=== PATIENT | male | born 1950 | race African-American/Black ===

== ENCOUNTER 2017-09-04 21:25 | Observation (INO) | payer OTHER, SELFPAY ==
[~2017-09-04 21:25] MED LIST: Iopamidol 370 76% 100 ML VIAL ONE; Iopamidol 370 76% 50 ML VIAL FS ONE
[2017-09-04 22:09] LABS: #Eosinphils 0.1 thou/uL (0.0-0.7); #Lymphocytes 1.7 thou/uL (1.20-3.40); #Monocytes 0.5 thou/uL (0.11-0.59); #Neutrophils 5.6 thou/uL (1.40-6.50); %Basophils 0.3 % (0.0-1.0); %Eosinophils 1.3 % (0.0-10.0); %Lymphocytes 21.4 % (21.0-51.0); %Monocytes 6.3 % (0.0-10.0); Hematocrit 46.7 % (42.0-52.0); Mean Platelet Volume 8.4 fL (7.4-10.4); Red Blood Cell (RBC) Count 5.44 mill/uL (4.70-6.10); White Blood Cell (WBC) Count 7.9 thou/uL (4.8-10.8)
[2017-09-04 22:32] LABS: ALT (SGPT) 26 U/L (8-55); AST (SGOT) 16 U/L (5-34); Alkaline Phosphatase 95 U/L (40-150); Anion Gap 9 mmol/L (10-20); BUN (Urea Nitrogen) 14 mg/dL (8.4-25.7); Bilirubin, Total 0.4 mg/dL (0.2-1.2); Calc. Creatinine Clearance 0 mL/min (70-130); Calcium 9.2 mg/dL (7.8-10.44); Carbon Dioxide 30 mmol/L (23-31); Chloride 105 mmol/L (98-107); Estimated GFR-MDRD Greater than 90; Globulin 3.3 g/dL (2.4-3.5); Protein, Total 7.3 g/dL (5.8-8.1)
[2017-09-04] MEDS ORDERED: Morphine 4 MG/ML VIAL ONE ×2 (23:25→23:57)
[2017-09-04] MEDS ORDERED: Ondansetron HCl/PF 4 MG/2 ML Vial ONE (23:25)
[2017-09-05] MEDS ORDERED: Metoprolol Tartrate 5 MG/5 ML VIAL ONE (00:15)
[2017-09-05 01:16] LABS: Bilirubin Negative (Negative); Blood, Urine Large (Negative); Glucose, Urine (Dipstick) Negative (Negative); Ketone, Urine Negative (Negative); Nitrite Negative (Negative); Protein, Urine (Dipstick) Negative (Neg-Trace); Urobilinogen 0.2 mg/dL (0.2-1.0)
[2017-09-05 01:18] LABS: Bacteria/HPF None Seen HPF (None Seen); RBC/HPF GREATER THAN 50-TNTC HPF (0-3); Squamous Epithelial 0-3 HPF (0-3); WBC/HPF 0-3 HPF (0-3)
[2017-09-05 01:29] LABS: Hyaline Casts/LPF NONE SEEN LPF (0-3 Hyaline)
[2017-09-05] MEDS ORDERED: Tamsulosin HCl 0.4 MG CAP PO SCH (02:30)
[2017-09-05] MEDS ORDERED: hydrALAZINE 25 MG TAB PO PRN (04:37)
[2017-09-05 06:11] LABS: Troponin I 0.013 ng/mL (< 0.028)
--- NOTE | 2017-09-05 06:53 | CT ---
PRELIMINARY REPORT/[facility]/EMERGENCY AFTER HOURS PROCEDURE: EXAM: CT Abdomen and Pelvis With Intravenous Contrast EXAM DATE/TIME: Exam ordered 09/05/2017 12:25 AM CLINICAL HISTORY: 66 years old, male; Pain and signs and symptoms; Nausea and vomiting; Abdominal pain; Localized; Righ t lower quadrant (rlq); Patient HX: 66m with rlq pain x 2 days, worse today. Patient states "it feels like i have a fist sized knot down there". Patient denies nausea and vomiting. Denies diarrhea or co nstipation. Denies dysuria or retention. Ems noted patient was hypertensive when they arrived. Patien t reports he is not compliant with BP medication. Denies headache, chest pain and shortness of breath . TECHNIQUE: Axial computed tomography images of the abdomen and pelvis with intravenous contrast. Coronal reformatted images were created and reviewed. CONTRAST: 95 mL of isovue 370 administered intravenously. COMPARISON: No relevant prior studies available. FINDINGS: Lower thorax: Cardiomegaly. ABDOMEN: Liver: Unremarkable. No mass. Gallbladder and bile ducts: Unremarkable. No calcified stones. No ductal dilation. Pancreas: Unremarkable. No mass. No ductal dilation. Spleen: Unremarkable. No splenomegaly. Adrenals: Unremarkable. No mass. Kidneys and ureters: 8 mm obstructing stone at the right UPJ, causing mild/moderate obstructive uropathy. Stomach and bowel: Unremarkable. No obstruction. No mucosal thickening. Appendix: Normal appendix. PELVIS: Bladder: Unremarkable. No mass. Reproductive: Prostatomegaly. ABDOMEN and PELVIS: Intraperitoneal space: Unremarkable. No free air. No significant fluid collection. Bones/joints: Scoliosis. No acute fracture. No dislocation. Soft tissues: Unremarkable. Vasculature: Unremarkable. No abdominal aortic aneurysm. Lymph nodes: Unremarkable. No enlarged lymph nodes. IMPRESSION: 8 mm obstructing stone at the right UPJ, causing mild/moderate obstructive uropathy. Thank you for allowing us to participate in the care of your patient. Dictated and Authenticated by: Kelton Rick MD 09/05/2017 12:38 AM Central Time ([place] & [place]) FINAL REPORT CT ABDOMEN AND PELVIS WITH ORAL AND IV CONTRAST: I agree with the preliminary report given by Dr. Kelton Rick of [facility]. POS: OFF
[2017-09-05] MEDS ORDERED: metFORMIN 500 MG TAB PO SCH (08:00)
[2017-09-05] MEDS ORDERED: Aspirin 81 mg Enteric Coated Tablet PO SCH (09:00)
--- NOTE | 2017-09-05 14:25 | PDOC.EVN ---
Event Note - Event Note Event Note: Attending H&P I personally evaluated the patient and discussed the management with Dr. America Saul. I avhe reviewed the written H&P adn it is repeated by me. I agree with the History, Examination, Assessment and Plan documented above with any addition or exceptions noted below. Urology consult pending. Admitted for elevate BP with WOOTEN. He is feeling much better. Possible discharge later today or tomorrow if asymptomatic and BP improved.
[2017-09-05] MEDS ORDERED: HumaLOG 300 UNITS/3 ML VIAL SC PRN (14:37)
[2017-09-05] MEDS ORDERED: Dextrose 5% in Water 1,000 ML IV PRN (14:37)
[2017-09-05] MEDS ORDERED: Dextrose 50% Abboject 50 ML SYRINGE SLOW IVP PRN (14:37)
[2017-09-05] MEDS ORDERED: Enoxaparin Sodium 40 MG/0.4 ML SYRINGE SC SCH (14:45)
[2017-09-05] MEDS ORDERED: Nicotine 14 MG PATCH TD SCH (15:00)
[2017-09-05] MEDS: Tamsulosin HCl 0.4 MG CAP PO SCH ×2 (15:19→16:10)
[2017-09-05 15:20] VITALS: BMI 22.6
[2017-09-05] MEDS: Lisinopril 20 MG TAB PO SCH (16:08)
[2017-09-05] MEDS: Amlodipine 10 MG TAB PO SCH (16:08)
[2017-09-05] MEDS: Morphine 4 MG/ML VIAL SLOW IVP PRN ×2 (16:11→20:12)
--- NOTE | 2017-09-05 16:16 | HP-2 ---
DATE OF ADMISSION: 09/05/2017 at 02:43 CODE STATUS: FULL. PCP: Nurse practitioner in [place]. ATTENDING DOCTOR: Dr. Goldsmith. PGY-1: Dr. America Paniagua. HISTORIAN: Patient. CHIEF COMPLAINT: Right lower quadrant pain. HISTORY OF PRESENT ILLNESS: This is a 66-year-old male who complains of right lower quadrant pain since yesterday morning. The patient states that he woke up with the pain. He states that the pain is sharp, nonradiating, in the right lower quadrant. The patient states he had some associated nausea and vomiting. He denied chest pain or shortness of breath. Patient was urinating without difficulty. He was brought in via EMS and was found to be hypertensive on the way over to the 250 systolic. Patient reports that he also had a headache yesterday afternoon. Patient reports that he knows he has hypertension, but that he has not been taking his medications because he got tired of taking them. In the ER, the patient received morphine 8 mg IV push, Zofran 4 mg IV, metoprolol 10 mg IV push, hydralazine 10 mg IV, Flomax 0.4 mg. PAST MEDICAL HISTORY: Type 2 diabetes, a history of an WA, hyperlipidemia, hypertension, CVA x2, schizophrenia, depression, and a prior suicide attempt. PAST SURGICAL HISTORY: Hernia repair. ALLERGIES: No known drug allergies. MEDICATIONS: Unknown. SOCIAL HISTORY: A [id number] smoking history. Sober for 6 years in terms of alcohol use and denies drug use. REVIEW OF SYSTEMS: General: Denies fevers and chills. Eyes: Denies vision change. Respiratory: Denies cough, congestion. Cardiovascular: Denies chest pain or palpitations. Gastrointestinal: Endorses nausea and vomiting. Denies diarrhea. Endorses abdominal pain, right lower quadrant. Genitourinary: Denies incontinence or dysuria. Skin: Denies rashes or lesions. Musculoskeletal: Denies pain or tenderness. Neurologic: Denies weakness or numbness. Psychiatric: Denies anxiety or depression. PHYSICAL EXAMINATION: VITAL SIGNS: Blood pressure 148/81, pulse of 58, respiratory rate 17, T-max 97.7, pulse ox 99% on 2 liters, current weight 64.4. GENERAL: Alert and oriented x3, in no apparent distress. Appropriately interactive. EYES: Conjunctivae within normal limits. ENT: Nasal and oropharynx within normal limits. NECK: Supple. No lymphadenopathy, no thyromegaly. CARDIOVASCULAR: Bradycardic. No murmur, rub, or gallop. RESPIRATORY: Normal effort, no retractions, clear to auscultation bilaterally. ABDOMEN: Tender in the right lower quadrant. Hypoactive bowel sounds. EXTREMITIES: No clubbing, cyanosis, or edema. MUSCULOSKELETAL: Structure within normal limits. Tone within normal limits. Muscle strength 5/5. NEUROLOGIC: Hyper rigidity in lower extremities. Sensation within normal limits. Cranial nerves II-XII intact. GCS 15. PSYCHIATRIC: Appropriate. LABORATORY DATA: CBC: White count 7.9, hemoglobin 14.8, hematocrit 47.6, platelets 224. Chemistry: Sodium 140, potassium 4.1, chloride 105, bicarbonate 30, BUN 14, creatinine 0.91, glucose 156. AST, ALT, alkaline phosphatase 16, 26, 95. Calcium, total protein, albumin 9.2, 7.3, 4. Total bilirubin 0.4. UA specific gravity 1.011, blood large, negative for protein, leukocyte esterase, nitrites, ketones, glucose, red blood cells greater than 50 , white blood cells 0-3, bacteria none. EKG, sinus bradycardia with T-wave inversions in lateral leads, V5 and V6. Abdominopelvic CT positive for right nephrolithiasis at the ureteropelvic junction. ASSESSMENT AND PLAN: Mr. Hernandez is a 66-year-old man who presents with right lower quadrant pain and found to have systolic blood pressure to 250 admitted for obstructing ureteropelvic junction nephrolithiasis (8 mm) and hypertensive urgency. 1. Ureteropelvic Junction Nephrolithiasis: We admitted the patient and started him on normal saline at 100 mL an hour. Restarted the patient's Flomax. Consulted Urology in the ER. We will follow up on urine culture. 2. Hypertensive urgency, improving. Patient was initially 250 systolic, was provided with metoprolol and hydralazine in the ER. The patient is now in the 140s. We will continue to monitor. We will start the patient on amlodipine 10 mg daily with a goal range of less than 140/80. Will we plan to slowly bring down the patient's blood pressure to prevent ischemic symptoms. 2. Hypertension, uncontrolled. We will start the patient on amlodipine 10 mg daily. 3. Type 2 diabetes. Sliding scale insulin was started, metformin was started, Accu-Cheks a.c. and at bedtime. 4. Hyperlipidemia. We will restart the patient's atorvastatin and consider ordering a lipid panel. 5. Sinus bradycardia and T-wave inversion. We will monitor the patient for chest pain, which he has not complained of throughout this entire hospital admission. We will trend the patient's troponins. DISPOSITION AND LENGTH OF HOSPITAL STAY: 3 days. Symptomatic medications will be provided. History and physical exam as well as management discussed with Dr. Goldsmith. BRANDT
[2017-09-05] MEDS: Sodium Chloride 0.9% 1,000 ML IV SCH (16:28)
[2017-09-05] MEDS ORDERED: Atorvastatin Calcium 20 MG TAB PO SCH (21:00)
[2017-09-06] MEDS: Sodium Chloride 0.9% 1,000 ML IV SCH (03:12)
[2017-09-06 06:23] LABS: #Basophils 0.1 thou/uL (0.0-0.2); #Eosinphils 0.1 thou/uL (0.0-0.7); #Lymphocytes 2.8 thou/uL (1.20-3.40); #Monocytes 0.8 thou/uL (0.11-0.59); #Neutrophils 3.4 thou/uL (1.40-6.50); %Basophils 1.3 % (0.0-1.0); %Eosinophils 1.5 % (0.0-10.0); Hematocrit 43.2 % (42.0-52.0); Mean Platelet Volume 8.3 fL (7.4-10.4); Red Blood Cell (RBC) Count 4.97 mill/uL (4.70-6.10); White Blood Cell (WBC) Count 7.1 thou/uL (4.8-10.8)
[2017-09-06 06:27] LABS: Anion Gap 8 mmol/L (10-20); BUN (Urea Nitrogen) 10 mg/dL (8.4-25.7); Calc. Creatinine Clearance 91 mL/min (70-130); Calcium 8.7 mg/dL (7.8-10.44); Carbon Dioxide 30 mmol/L (23-31); Chloride 106 mmol/L (98-107); Estimated GFR-MDRD Greater than 90
--- NOTE | 2017-09-06 06:34 | CON ---
DATE OF SERVICE: 09/05/2017 REASON FOR CONSULTATION: Consultation was requested for right ureteropelvic junction stone with hydronephrosis and pain. HISTORY OF PRESENT ILLNESS: Patient is a 66-year-old male, who presented to the ER with right-sided renal colic with nausea and vomiting, worsening over the past couple of days. He has never had stones before. ER called me early on before even attempting to get him comfortable (about 145AM), and my instructions were originally to see if he is comfortable/pain controlled and able to tolerate liquids and then could be discharged. The ER called back about 7 hours later and since I was in the OR, I was not able to speak to them for another 3 hours. By this time, they communicated to me that he was in no pain whatsoever and was only there because blood pressure was still up and they were still trying to anticipate him leaving once that was improved. I asked them to communicate to me if there was going to be a change from the plan of letting him go from the ER, because if he were admitted, then I would see him and likely stent him. They did not. I later check to ensure he's been discharged, and I see that he has been admitted to the floor-- presumably just for his blood pressure issues. When I see him, he still has significant right-sided pain and is moaning with some discomfort, but easily distracted and able to communicate appropriately.. He has frequency 2-3 hours, nocturia x2. He has no lower urinary tract symptoms to include hesitancy, weak stream, straining, cloudy, malodorous urine , or burning. He has never seen blood in the urine up until 3 or 4 weeks ago when he saw a slight amount of blood that cleared on its own. It was slightly tea colored as opposed to actually grossly bloody. He has no leakage of urine. No prior infections and no history of stones. PAST MEDICAL HISTORY: 2 CVAs, the last one was 3 years ago. CAD/NE 4 years ago. Upon further discussion of that, he relays he had cardiac catheterization at that time, and no angioplasty nor stents were required. He does state that he has been on prior anticoagulation therapy, but he is not to be on it currently and has not been taking anything--neither prescription nor over-the- counter ASA from an anticoagulation standpoint. PAST SURGICAL HISTORY: right inguinal hernia. MEDICATIONS: None daily, nothing [id number]. ALLERGIES: None. SOCIAL HISTORY: A 25-uzpp-rcki history, he still smokes. He has prior alcohol abuse, none since 2010. No IV drug abuse. REVIEW OF SYSTEMS: colonoscopy in 2013, which was normal. He has had normal bowel movements, including 1 yesterday. He has no shortness of breath, no chest pain, no cough, no numbness, tingling. He has nausea and emesis x1, but not since he has been into the hospital ER. He has been screened routinely for prostate cancer with a PSA and digital rectal exam--reports those have been normal. FAMILY HISTORY: Father at a young age when he was a child, and his mother lived into her 80s and from old age. She did not have cancer. PHYSICAL EXAMINATION: GENERAL: The patient was moaning with some pain, but easily distracted and able to appear more comfortable and alert and oriented. VITAL SIGNS: Temperature 97.4, heart rate 73, blood pressure 183/84, saturating 96% with respiratory rate of 16. HEENT: He has no diaphoresis or pallor. NECK: He has no obvious JVD. CARDIOVASCULAR: Regular rate and rhythm. No murmurs, gallops, rubs. LUNGS: Clear to auscultation bilaterally. ABDOMEN: Softly distended with right abdominal discomfort as well as right CVA tenderness, but none noted on the left. There was no rebound tenderness or peritoneal signs. His testes were descended bilaterally without masses. GENITOURINARY: His phallus was uncircumcised without lesions and easily retracted for inspection. Meatus was without stenosis. Digital rectal exam revealed an enlarged prostate that was smooth, soft, and without nodules or sidewall fixation. EXTREMITIES: He had no lower extremity edema. LABORATORY DATA: Laboratory values reveal a normal CBC, a creatinine of 0.91, and a urinalysis of 0-3 wbc's, too numerous to count rbc's, no bacteria, 0-[address] scan was reviewed personally and revealed 6 x 9 mm collection of 1 gallstone, it is difficult to tell rom the CT. Right ureteropelvic junction stone with hydronephrosis. There are no other stones. The stone was noted on the advance scout film. The bladder was quite full and he had no other masses of concern, and an enlarged prostate. ASSESSMENT AND PLAN: 66-year-old male with an obstructing right ureteropelvic junction stone as well as significant hypertension that may be chronic with an exacerbation from his recent episode of hydronephrosis and pain. We reviewed placing a stent during this hospital stay and following up as an outpatient for definitive stone therapy to include extracorporal shock wave lithotripsy. Risks and benefits of stent placement were reviewed and we can anticipate doing this tomorrow. All questions were answered. He can eat today and is n.p.o. after midnight. BRANDT
[2017-09-06] MEDS ORDERED: Nicotine 14 MG PATCH TD PRN (08:19)
[2017-09-06] MEDS ORDERED: Potassium Chloride 20 MEQ TAB PO SCH (08:30)
[2017-09-06] MEDS: Amlodipine 10 MG TAB PO SCH (08:48)
[2017-09-06] MEDS: Morphine 4 MG/ML VIAL SLOW IVP PRN (08:48)
[2017-09-06] MEDS: Tamsulosin HCl 0.4 MG CAP PO SCH (08:48)
[2017-09-06] MEDS: Lisinopril 20 MG TAB PO SCH (08:48)
[2017-09-06] MEDS ORDERED: Enoxaparin Sodium 40 MG/0.4 ML SYRINGE SC SCH (09:00)
--- NOTE | 2017-09-06 10:27 | PDOC.FM ---
- Subjective Subjective: CC: flank pain HPI: Patient sleeping at time of exam. No concerns other than providing ride home for him. Explained plan for today. - Objective MAR Reviewed: Yes Vital Signs & Weight: Vital Signs (12 hours) Temp Pulse Resp BP Pulse Ox 09/06/17 08:00 98.1 F 69 16 09/06/17 07:56 98.1 F 69 16 168/78 H 92 L 09/06/17 03:15 97.8 F 80 16 128/68 94 L 09/05/17 23:18 98.3 F 68 18 153/74 H 93 L Weight Weight 67.33 kg I&O: 09/05/17 09/06/17 09/07/17 06:59 06:59 06:59 Intake Total 1590 Output Total 1300 Balance 290 Result Diagrams: 09/06/17 05:54 09/06/17 05:54 EKG Reviewed by me: Yes (SR rate 80s ) <Alexander Saul W - Last Filed: 09/06/17 10:25> - Objective Vital Signs & Weight: Vital Signs (12 hours) Temp Pulse Resp BP BP Pulse Ox 09/06/17 14:51 133/70 09/06/17 14:31 85 09/06/17 14:28 97.7 F 85 20 189/96 H 96 09/06/17 08:00 98.1 F 69 16 09/06/17 07:56 98.1 F 69 16 168/78 H 92 L Weight Weight 67.33 kg I&O: 09/05/17 09/06/17 09/07/17 06:59 06:59 06:59 Intake Total 1590 Output Total 1300 400 Balance 290 -400 Result Diagrams: 09/06/17 05:54 09/06/17 05:54 <Bruce Goldsmith - Last Filed: 09/06/17 17:18> Phys Exam - Physical Examination Constitutional: NAD HEENT: moist MMs, sclera anicteric Respiratory: no wheezing, clear to auscultation bilateral Cardiovascular: RRR, no significant murmur Gastrointestinal: soft, no distention R. CVA tenderness. Musculoskeletal: no edema Neurological: non-focal, moves all 4 limbs Psychiatric: normal affect, A&O x 3 <Alexander Saul W - Last Filed: 12/06/17 10:25> Dx/Plan (1) Right nephrolithiasis Code(s): N20.0 - CALCULUS OF KIDNEY Status: Acute Plan: Urology consulted. Appreciate recs. Plan for stent placement today and likely discharge after. (2) Sinus bradycardia Code(s): R00.1 - BRADYCARDIA, UNSPECIFIED Status: Acute Plan: No episodes since admission. - d/c telemetry (3) Hypertension Code(s): I10 - ESSENTIAL (PRIMARY) HYPERTENSION Status: Acute QualifierTitle: Hypertension type: essential hypertension Qualified Code( s): I10 - Essential (primary) hypertension Plan: Restarted home amlodipine, HCTZ and Lisinopil - outpatient follow up. (4) DM2 (diabetes mellitus, type 2) Status: Acute QualifierTitle: Diabetes mellitus complication status: without complication Diabetes mellitus oysterman insulin use: without fpc use Qualified Code(s): E11.9 - Type 2 diabetes mellitus without complications Plan: SSI not used during stay. Restart home metformin at time of d/c. (5) Uninsured Code(s): Z59.8 - OTHER PROBLEMS RELATED TO HOUSING AND ECONOMIC CIRCUMSTANCES Status: Acute Plan: Case management arranging ride. <Alexander Saul W - Last Filed: 09/06/17 10:25> Attending Addendum - Attending Addendum I personally evaluated the patient and discussed the management with Dr. Saul. I agree with the History, Examination, Assessment and Plan documented above with any addition or exceptions noted below. Stable for discharge. <Bruce Goldsmith - Last Filed: 09/06/17 17:18>
[2017-09-06] MEDS ORDERED: traMADol HCl 50 MG TAB PO PRN (10:29)
[2017-09-06] MEDS ORDERED: Iothalamate Meglumine 60% 50 ML VIAL FS ONE ×2 (10:58)
[2017-09-06] MEDS ORDERED: Fentanyl 100 MCG/2 ML VIAL ONE (11:01)
[2017-09-06] MEDS ORDERED: Promethazine HCl 25 MG/ML VIAL ONE (11:01)
[2017-09-06] MEDS ORDERED: Iopamidol 15 ML ONE (11:03)
[2017-09-06] MEDS ORDERED: CEFAZOLIN 1 GM, Syringe 2.5 ML in Sterile Water 7.5 ML SLOW IVP SCH (11:30)
[2017-09-06] MEDS ORDERED: CEFAZOLIN 1 GM in Sodium Chloride 0.9% 100 ML IVPB SCH (11:30)
[2017-09-06 13:24] LABS: Bilirubin Negative (Negative); Blood, Urine Large (Negative); Glucose, Urine (Dipstick) Negative (Negative); Ketone, Urine Negative (Negative); Nitrite Negative (Negative); Protein, Urine (Dipstick) Negative (Neg-Trace); Urobilinogen 0.2 mg/dL (0.2-1.0)
[2017-09-06] MEDS ORDERED: Labetalol HCl 100 MG/20 ML VIAL ONE ×2 (13:24→15:49)
[2017-09-06 13:31] LABS: Bacteria/HPF None Seen HPF (None Seen); Hyaline Casts/LPF 7-10 HYALINE CAST LPF (0-3 Hyaline); RBC/HPF GREATER THAN 50-TNTC HPF (0-3); Squamous Epithelial 0-3 HPF (0-3)
[2017-09-06] MEDS ORDERED: Morphine Sulfate 2 MG/ML SYRINGE SLOW IVP PRN (13:39)
[2017-09-06] MEDS ORDERED: Meperidine HCl/PF 25 MG/ML VIAL SLOW IVP PRN (13:39)
[2017-09-06] MEDS ORDERED: Promethazine HCl 25 MG/ML VIAL SLOW IVP PRN (13:39)
[2017-09-06] MEDS ORDERED: Ondansetron HCl/PF 4 MG/2 ML Vial IVP PRN (13:39)
[2017-09-06 14:29] VITALS: TEMP 97.7
--- NOTE | 2017-09-06 14:47 | OP ---
DATE OF PROCEDURE: 09/06/2017 PREOPERATIVE DIAGNOSIS: Right ureteropelvic junction stone. POSTOPERATIVE DIAGNOSIS: Right ureteropelvic junction stone. PROCEDURE: Cystoscopy, right retrograde pyelogram, insertion of right ureteral stent 6 x 26. SURGEON: Joy Adkins M.D. ANESTHESIA: General with mask airway. FINDINGS: Adequate placement of a 6 x 26 double-J stent with good efflux noted in the bladder via the stent, hydronephrosis with hydronephrotic drip. DRAIN: Drain was 6 x 26. SPECIMEN: Specimen urine from the right renal pelvis for micro and culture. ESTIMATED BLOOD LOSS: No blood loss. COMPLICATIONS: No complications. The patient is a 66-year-old male who was admitted with both blood pressure issues and an obstructing right stone and was taken to the operating room for a stent. The patient was brought to the room by Anesthesia, placed on the table in supine position. After receiving general anesthetic, flexed legs in lithotomy position. His perineum was prepped and draped in sterile fashion. Using a 21 Danish scope and 30 degrees lens, the bladder inspected. There was a tight bladder neck, but no significant hypertrophy of the prostate. The ureteral orifices were identified in normal position. There were no lesions noted throughout the bladder. The right orifice was attempted to be intubated with a catheter, but required a wire to aid in this and then a retrograde pyelogram was performed given the positioning of the table and the C-arm it was difficult to actually see the stone itself, but ultimately hydronephrosis was noted. Hydronephrotic drip was seen and specimen was taken for approximately 20 mL of concentrated urine and sent for specimen and a 6 x 26 was chosen with good coil visualized in the renal pelvis via fluoroscopy and a coil visualized in the bladder via cystoscopy with effuse noted. Scope was broken apart, bladder drained and then removed in its entirety. The patient tolerated procedure well and was then awakened and transferred to the PACU in stable condition. BRANDT
[2017-09-06 14:52] VITALS: BP 133/70
[2017-09-06] MEDS ORDERED: ePHEDrine/0.9% NaCl/PF SYRINGE 50 mg/10 ml ONE (15:49)
[2017-09-06] MEDS ORDERED: PHENYLEPHRINE-NS 100 MCG/ML 10 ML SYRINGE ONE (15:49)
[2017-09-06] MEDS ORDERED: Propofol 200 MG/20 ML VIAL ONE (15:49)
[2017-09-06] MEDS ORDERED: Calcium Chloride 1 GM/10 ML Abboject SYRINGE ONE (15:49)
[2017-09-06] MEDS ORDERED: Lidocaine 1% PF 5 ML VIAL ONE (15:49)
[2017-09-06] MEDS ORDERED: Ondansetron HCl/PF 4 MG/2 ML Vial ONE (15:49)
[2017-09-06] MEDS ORDERED: Atorvastatin Calcium 10 MG TAB PO SCH (21:00)
[2017-09-06] MEDS ORDERED: Pravastatin Sodium 40 MG TAB PO SCH (21:00)
--- NOTE | 2017-09-07 00:41 | DIS-2 ---
DATE OF ADMISSION: 09/05/2017 DATE OF DISCHARGE: 09/06/2017 ADMITTING ATTENDING: Bruce Goldsmith M.D. DISCHARGE ATTENDING: Bruce Goldsmith M.D. ADMITTING RESIDENT: America Paniagua M.D. DISCHARGE RESIDENT: Alexander Saul M.D. CONSULTATIONS: Dr. Joy Adkins - Urology. PROCEDURES: 1. Cystoscopy with right retrograde pyelogram and insertion of right ureteral stent 6 x 26. 2. Imaging: CT of the abdomen and pelvis stone protocol showed 8 mm obstructing joint at the right UPJ causing mild to moderate obstructive uropathy. PERTINENT LABORATORY FINDINGS: Potassium on day of discharge 3.2, replaced prior to discharge. PRIMARY DIAGNOSES: 1. Obstructing right ureteropelvic junction stone with mild to moderate hydronephrosis. 2. Hypertensive urgency secondary to medication noncompliance. SECONDARY DIAGNOSES: 1. Hypertension. 2. Hyperlipidemia. 3. Diabetes mellitus type 2. 4. Uninsured. DISCHARGE MEDICATIONS: 1. Lisinopril 20 mg daily. 2. Flomax 0.4 mg daily. 3. Tramadol 50 mg q.4 hours p.r.n., dispensed 30 tablets. 4. Hydrochlorothiazide 12.5 mg daily. 5. Amlodipine 10 mg daily. 6. Pravastatin 40 mg at bedtime. DISCONTINUED MEDICATIONS: Spironolactone 25 mg daily. HISTORY OF PRESENT ILLNESS AND HOSPITAL COURSE: Mr. Hernandez is a pleasant 66-year-old -[place] male who presented as a transfer from an outside facility with a 2-day history of right lower quadra nt pain that had progressively worsened throughout the day. He reported associated nausea and vomiti ng. Denied chest pain or shortness of breath. Denied other urinary symptoms. He was found to be se verely hypertensive en route with systolic blood pressures over 250 mmHg. He stated he had not been on any of his antihypertensive medications for approximately 6 months because he "was started of taki ng his medicines." Dr. Adkins was consulted in the ER and initially planned to start the patient on Flomax and discharge him home. However, when the patient's pain was unable to be controlled and his blood pressure remained significantly elevated, decision was made to admit the patient for observatio n. He was restarted on his home medications and given IV morphine for pain control. Dr. Adkins reev aluated the patient and planned for stent placement. This was achieved on 09/06/2017. Patient nu ated the procedure well. Vital signs at the time of discharge were within normal range. Blood press ure was elevated, but patient was otherwise asymptomatic. DISPOSITION: He was discharged in stable condition. However, Mr. Hernandez continues to be noncompliant with his antihypertensive regimen. He is at a markedly increased risk of acute cardiovascular disea se. DISCHARGE INSTRUCTIONS: 1. Location: Home. 2. Diet: Heart healthy, consistent carbohydrates. 3. Activity: As tolerated. 4. Followup: He is to follow up with his primary care physician within 3 days of discharge for furt her management of his blood pressure. He is to contact Dr. Adkins in her office to set up followup a ppointment. Less than 30 minutes spent on discharge.
[2017-09-07] MEDS ORDERED: Hydrochlorothiazide 25 MG TAB PO SCH (09:00)
== END 2017-09-06 15:37 | disposition home or self-care (01) ==
LOC: ERS 21:25 → ERHOLD 09-05 02:29 → 2SW 09-05 12:40
PROVIDERS: ADMIT Family Medicine; ATTEND Family Medicine
PROC: 0T768DZ Dilation of Right Ureter with Intraluminal Device, Via Natural or Artificial Opening Endoscopic (ICD-10-PCS; principal; 2017-09-06)
DX: N13.2 Hydronephrosis with renal and ureteral calculous obstruction (principal); I25.10 Atherosclerotic heart disease of native coronary artery without angina pectoris; I16.0 Hypertensive urgency; I10 Essential (primary) hypertension; E78.5 Hyperlipidemia, unspecified; E11.9 Type 2 diabetes mellitus without complications; F20.9 Schizophrenia, unspecified; F32.9 Major depressive disorder, single episode, unspecified; F17.210 Nicotine dependence, cigarettes, uncomplicated; Z79.899 Other long term (current) drug therapy; Z91.14 Patient's other noncompliance with medication regimen; Z98.890 Other specified postprocedural states; Z86.73 Personal history of transient ischemic attack (TIA), and cerebral infarction without residual deficits
CPT/HCPCS: 36415; 36416; 74177; 76000; 80048; 80053; 81001; 81003; 81015; 82553; 84484; 85025; 87086; 93005; 94760; 96361; 96372; 96374; 96375; 96376; A4216; C1758; C1769; G0378; J0690; J1650; J2001; J2270; J2405; J2550; J2704; J3010; Q9961

== ENCOUNTER 2017-10-16 21:20 | Observation (INO) | payer MEDICARE ==
[2017-10-16 23:04] LABS: CKMB 0.5 ng/mL (0-6.6); Troponin I 0.011 ng/mL (< 0.028)
[2017-10-17] MEDS ORDERED: Acetaminophen 325 MG TAB PO PRN ×2 (01:15→07:10)
[2017-10-17] MEDS ORDERED: Ondansetron ODT 4 MG TAB SL PRN (01:15)
[2017-10-17] MEDS ORDERED: Ondansetron HCl/PF 4 MG/2 ML Vial IVP PRN ×2 (01:15→07:10)
[2017-10-17 01:54] LABS: Troponin I 0.015 ng/mL (< 0.028)
[2017-10-17 02:36] VITALS: BMI 20.6
[2017-10-17] MEDS ORDERED: Senokot 8.6 MG TAB PO PRN (07:10)
[2017-10-17] MEDS ORDERED: Artificial Tears 18 DROP/0.9 ML EA EYE PRN (07:10)
[2017-10-17] MEDS ORDERED: Mag-Al 1200 mg/1200 mg/30 ML UDCUP PO PRN (07:10)
[2017-10-17] MEDS ORDERED: Loperamide HCl 2 MG CAP PO PRN (07:10)
[2017-10-17] MEDS ORDERED: hydrALAZINE 20 MG/ML VIAL SLOW IVP PRN (07:10)
[2017-10-17] MEDS ORDERED: Milk Of Magnesia 30 ML UDCUP PO PRN (07:10)
[2017-10-17] MEDS ORDERED: HYDROcodone/Acetaminophen 5/325 mg Tablet PO PRN (07:10)
[2017-10-17] MEDS ORDERED: Loratadine 10 MG TAB PO PRN (07:10)
[2017-10-17] MEDS ORDERED: Chloraseptic Spray 180 ml Bottle PO PRN (07:10)
[2017-10-17] MEDS ORDERED: Sodium Chloride 0.65% Nasal 44 ML BOT EA NARE PRN (07:10)
[2017-10-17] MEDS ORDERED: Dextrose 50% Abboject 50 ML SYRINGE SLOW IVP PRN (07:10)
[2017-10-17] MEDS ORDERED: HumaLOG 300 UNITS/3 ML VIAL SC PRN ×2 (07:10)
[2017-10-17] MEDS ORDERED: Zolpidem Tartrate 5 MG TAB PO PRN (07:10)
[2017-10-17] MEDS ORDERED: Dextrose 5% in Water 1,000 ML IV PRN (07:10)
[2017-10-17] MEDS ORDERED: Eucerin (Mineral Oil/Petrolatum,White) 30 gm Jar TOP PRN (07:10)
[2017-10-17] MEDS ORDERED: Diabetic Tussin 200 MG/10 ML UDCUP PO PRN (07:10)
[2017-10-17] MEDS ORDERED: traMADol HCl 50 MG TAB PO PRN (07:10)
[2017-10-17] MEDS ORDERED: Ondansetron ODT 4 MG TAB PO PRN (07:10)
[2017-10-17] MEDS: Oseltamivir 75 MG CAP PO SCH (07:53)
[2017-10-17] MEDS: Famotidine 20 MG TAB PO SCH ×2 (07:54→20:11)
[2017-10-17] MEDS: Tamsulosin HCl 0.4 MG CAP PO SCH (07:54)
[2017-10-17] MEDS ORDERED: cefTRIAXone\\ROCEPHIN 2 GM in Sodium Chloride 0.9% 100 ML IVPB SCH (08:00)
[2017-10-17] MEDS: CEFTRIAXONE 2GM/50 ML BAG 2 GM in Premix Bag 1 BAG IVPB SCH (08:48)
[2017-10-17] MEDS ORDERED: Amlodipine 10 MG TAB PO SCH (09:00)
[2017-10-17] MEDS ORDERED: Non-Formulary Item 1 EACH (Insulin Glargine,Hum.Rec.Anlog [Lantus] 15 UNITS) SQ SCH (09:00)
[2017-10-17] MEDS ORDERED: Lisinopril 20 MG TAB PO SCH (09:00)
[2017-10-17] MEDS ORDERED: Aspirin 325 MG TAB PO SCH (09:00)
[2017-10-17] MEDS ORDERED: Hydrochlorothiazide 25 MG TAB PO SCH (09:00)
[2017-10-17] MEDS: Insulin Detemir 100 UNITS/ML 15 UNITS in Pre-Filled Syringe 1 EACH SC SCH ×2 (10:03→20:55)
--- NOTE | 2017-10-17 11:49 | HP ---
PRIMARY CARE PHYSICIAN: Kenyatta Acuna M.D. REASON FOR ADMISSION: Transfer from [place] for syncope, hypotension, and abdominal pain. HISTORY OF PRESENT ILLNESS: A 67-year-old -[place] male who was initially evaluated at [facility]. He went there because he was having right lower quadrant abdominal pain. As per report, patient had syncopal episode, but currently patient denies any syncope. As per report, patient had low blood pressure at [place] [facility], but currently his blood pressure is no rmal. Earlier today, patient had nonsustained ventricular tachycardia 4 beats, but patient was compl etely asymptomatic. His main complaint was abdominal pain on the right side in the lower part. He d enies any CVA tenderness. He denies any hematuria, dysuria or increased frequency. He denies any fe rohan or chills. He denies any nausea, vomiting, headache, focal motor or sensory symptoms. As per [facility] Emergency Room record, patient is from [facility], but patient reports that he lives at home. He was recently admitted in our hospital on 09/05/2017. At that time, patient had Urology procedure and stent was placed by Dr. Adkins. Today, patient had CT abdomen and pelvis at [facility] Room which showed right ureteral stent in place with moderate right hydronephro sis and mild perinephric stranding on the right side, nonobstructive right renal calculus. ALLERGIES: No known drug allergies. CURRENT HOME MEDICATIONS: Coreg 6.25 mg twice daily, Paxil 20 mg p.o. daily, Novolin 70/30 as per sl iding scale, Proventil inhaler nebulization 3 times daily, Imodium 2 mg 3 times daily p.r.n., Tylenol 650 mg q.6 hourly p.r.n., Lantus 30 units subcutaneous daily, hydrochlorothiazide 12.5 mg p.o. daily , lisinopril 20 mg p.o. daily, Norvasc 10 mg p.o. daily, Flomax 0.4 mg p.o. daily, Lipitor 40 mg p.o. at bedtime, Tamiflu 75 mg p.o. daily, tramadol 50 mg q.4 hourly p.r.n., and Plavix 75 mg p.o. daily. REVIEW OF SYSTEMS: The following complete review of systems was negative, unless otherwise mentioned in the HPI or below: Constitutional: Weight loss or gain, ability to conduct usual activities. Skin: Rash, itching. Eyes: Double vision, pain. ENT/Mouth: Nose bleeding, neck stiffness, pain, tenderness. Cardiovascular: Palpitations, dyspnea on exertion, orthopnea. Respiratory: Shortness of breath, wheezing, cough, hemoptysis, fever or night sweats. Gastrointestinal: Poor appetite, abdominal pain, heartburn, nausea, vomiting, constipation, or diarr hea. Genitourinary: Urgency, frequency, dysuria, nocturia. Musculoskeletal: Pain, swelling. Neurologic/Psychiatric: Anxiety, depression. Allergy/Immunologic: Skin rash, bleeding tendency. Please see my HPI for pertinent positive and negative. All other review of system reviewed and negat courtney except as mentioned in the HPI. Reliability of review of system is also uncertain because of his cognitive deficit. PAST MEDICAL HISTORY: Coronary artery disease, hypertension, dyslipidemia, benign enlargement of pro state, nephrolithiasis, history of CVA, carotid artery stenosis. PAST SURGICAL HISTORY: Hernia repair, cystoscopy, and right-sided ureteral stent placement. PAST PSYCHIATRIC HISTORY: Anxiety, depression, schizophrenia, history of suicidal attempt in past. SOCIAL HISTORY: Patient lives at [facility]. He smokes about half pack per day. He d enies any alcohol or other illicit drug abuse. FAMILY HISTORY: No strong family history of premature coronary artery disease, stroke or cancer. EMERGENCY ROOM COURSE: Reviewed. Patient is given aspirin 324 mg. PHYSICAL EXAMINATION: VITAL SIGNS: On arrival, blood pressure 141/75, pulse 78, respiratory rate 21, temperature 98.2, sat uration 97% on room air, weight 77 kilograms. GENERAL: Patient is currently alert, awake, follows commands. No obvious acute distress. HEAD: Normocephalic, atraumatic. EYES: Pupils round, reactive to light. Extraocular muscle intact. ENT: Oropharynx within normal limits. Moist mucous membranes. No oral lesions. No pharyngeal eryt jhon, no exudate. NECK: Supple, no JVD, no thyromegaly, no carotid bruit, no jugular venous distention. LUNGS: Clear to auscultation without any rhonchi or rales. CARDIAC: S1, S2 regular. No murmur, no gallop, no rub. ABDOMEN: Patient does report right-sided flank tenderness. No suprapubic tenderness. No CVA tender ness, no peritoneal signs, no guarding, no rigidity, no rebound, no organomegaly, no distention. [place] el sounds present. BACK: On examination, no CVA tenderness. EXTREMITIES: Upper extremity passive movements of all joints are normal. Lower extremities: No niko ma. Good peripheral pulsation. SKIN: No skin rash. HEMATOLOGICAL SYSTEM: No lymphadenopathy. NEUROLOGIC: Nonfocal examination. He moves all 4 limbs. Nonfocal neurological examination. IMAGING DATA AND SIGNIFICANT LABORATORY DATA: 1. EKG showing normal sinus rhythm, nonspecific ST-T changes, left atrial enlargement. 2. CT abdomen and pelvis showing right ureteral stent in place, moderate right hydronephrosis and mi ld right perinephric fat stranding, nonobstructive right renal calculi. 3. CT brain based on my review, no acute intracranial process. 4. Chest x-ray based on my review, no acute cardiopulmonary process. 5. CBC: WBC 6.8, hemoglobin 13.1, platelets 211, INR 1.0, D-dimer 0.37. 6. BMP: Sodium 142, potassium 4.0, chloride 103, carbon dioxide 28, anion gap 15, BUN 18, creatinin e 1.06, glucose 211, calcium 8.8, lactic acid 1.1. 7. LFT: AST 12, ALT 21, alkaline phosphatase 85, albumin 3.7, lipase 5. 8. Cardiac enzymes negative x2. BNP less than 10, CK 42. 9. Urinalysis showing blood large, ketone trace, leukocyte esterase trace, RBC greater than 50, WBC 4-6, bacteria 2+. ASSESSMENT AND PLAN/IMPRESSION: 1. Right hydronephrosis with right perinephric fat stranding concerning for acute pyelonephritis. T his patient does not have any fever, does not have any leukocytosis. He already has nonobstructive n ephrolithiasis and he had recently stent placed by Dr. Adkins. At this point, his urinalysis is conc erning for infection. We will start empiric Rocephin 1 gram q.24 hours. We will consult Urology for their opinion. We will follow up on urine culture result. Upon discharge, we will consider giving him empiric antibiotic therapy. We will continue Flomax 0.4 mg p.o. daily. Further decisions will d efer to Urology. 2. Syncope per history, patient denies any syncopal history currently to me. Recheck orthostatic vi tals and orthostatic vitals are normal. We will continue with IV fluid today and we will monitor vit als. 3. Hypotension per report at senior living. Currently hypotension, resolved. We will continue IV fl uids while in hospital. 4. Diabetes type 2. We will continue insulin as per sliding scale protocol and we will also resume Lantus 15 units subcu daily. Diabetic diet will be given. 5. Hypertension. At this point, because of relative very low blood pressure and history of hyperten lashay, I will hold antihypertensive medication. We will monitor vitals and then decide antihypertensi ve medication upon discharge. It is possible that he may need a lower dose of antihypertensive medic ation. 6. Dyslipidemia. Continue Lipitor 40 mg p.o. at bedtime. 7. Abdominal pain, right flank, probably related with his stent versus pyelonephritis. Urology cons ulted. 8. Deep venous thrombosis prophylaxis not needed because we are expecting discharge in 24 hours. 9. Gastrointestinal prophylaxis, Pepcid 20 mg p.o. b.i.d. 10. Code status: The patient is FULL CODE. The patient does not have any surrogate decision maker at this point. Disposition plan based on clinical course likely within 24 hours. Plan of care discussed with the boris thomas in detail.
[2017-10-17] MEDS: Sodium Chloride 0.9% 1,000 ML IV SCH (12:48)
--- NOTE | 2017-10-17 18:57 | CON ---
DATE OF CONSULT: HISTORY OF PRESENT ILLNESS: Presented today with apparent a syncopal episode. Patient does not have recollection of losing consciousness. He had been seen previously in 2012 with atrial flutter. He underwent a cardiac catheterization in 2008 and he was found to have mild coronary artery disease. The patient was advised to discontinue smoking. He has subsequently suffered two cerebrovascular accidents. The patient has continued to smoke. He was in the [facility] when apparently he was smoking and the nurse saw that he apparently suddenly lost consciousness. The patient denies having any previous history of syncope. The patient denies having any chest discomfort or palpitations. He denies having any dyspnea, PND or orthopnea. PAST MEDICAL HISTORY: 1. Cerebrovascular accident. 2. Atrial flutter. 3 Coronary artery disease. 4. Hypertension. 5. Dyslipidemia. 6. Hydronephrosis. 7. History of schizophrenia. PAST SURGICAL HISTORY: Urologic surgery and hernia surgery. SOCIAL HISTORY: The patient continues to abuse tobacco. MEDICATIONS: See nursing list ALLERGIES: No known drug allergies. FAMILY HISTORY: No strong family history of coronary artery disease. REVIEW OF SYSTEMS: Ten-point system otherwise unremarkable. PHYSICAL EXAMINATION: GENERAL: This is a confused gentleman. VITAL SIGNS: Blood pressure 132/63. NECK: Showed no jugular venous distention. LUNGS: Clear to auscultation. HEART: Regular rate and rhythm, normal S1, S2, no murmurs. ABDOMEN: Nondistended. EXTREMITIES: Showed trace edema. SKIN: Warm and dry. VASCULAR: Radial pulses are 2+. LABORATORY: His white blood count was 6.8, hemoglobin 13.1, hematocrit 40.8, platelets 211, 000. Troponin was 0.011 and BNP was less than 10. His EKG reveals him to have normal sinus rhythm with mild voltage criteria for left ventricular hypertrophy. No acute ST-T wave abnormalities. IMPRESSION: 1. Syncope, probably orthostatic: 1. Hypertension. 2. History of coronary artery disease. 3. History of cerebrovascular accident. 4. Diabetes mellitus. 5. Schizophrenia. This gentleman had an apparent syncopal episode. He is markedly orthostatic. EKG is unremarkable. from a cardiac standpoint, I agree with hydration and adjusting his antihypertensive medications. From a cardiac standpoint, he is able to perform four METS of exercise. He can walk several blocks without any difficulty. I expect he is a reasonable risk for proceeding with noncardiac surgery or lithotripsy. We will follow this patient with you throughout his hospitalization. BRANDT
[2017-10-17] MEDS ORDERED: Atorvastatin Calcium 40 MG TAB PO SCH (21:00)
[2017-10-17] MEDS ORDERED: ALPRAZolam 0.25 MG TAB PO PRN (21:29)
--- NOTE | 2017-10-17 23:10 | CON ---
DATE OF CONSULTATION: 10/17/2017 REASON FOR CONSULTATION: I was consulted for concern for pyelonephritis. HISTORY OF PRESENT ILLNESS: The patient is a 67-year-old male, who was admitted acutely in early September both for right-sided pain and ultimately for blood pressure issues and I placed an urgent stent. He was discharged and supposed to follow up as an outpatient for definitive stone management. Not much of anything has occurred since that time despite my office trying to get clearance for him and he returned to the [facility] for syncope and hypertension with abdominal pain. Upon speaking to the patient and reviewing records questionable whether he actually had a syncopal episode, but he was having some right-sided pain. The patient is also a bit confused as to the reason for being admitted to the hospital. PAST MEDICAL HISTORY: Significant for 2 CVAs, the last one in 2013; CAD with an MD in 2012, previously on anticoagulant therapy, but no longer currently. PAST SURGICAL HISTORY: Includes right inguinal hernia. MEDICATIONS: Previously, his medications were none daily. Now since the prior hospitalization, he is supposed to be on Coreg 6.25 mg b.i.d., Paxil 20 mg daily , Proventil nebulizer, hydrochlorothiazide 12.5 mg daily, lisinopril 20 mg daily , Norvasc 10 mg daily, Flomax 0.4 mg daily, Lipitor 40 mg at bedtime, and he is listed as taking Plavix per the H&P of this admission, but the patient denies that he takes a blood thinner. ALLERGIES: None. REVIEW OF SYSTEMS: He has no chest pain nor coughing up anything. He has right -sided abdominal flank pain. He denies any pain when he urinates and he denies that his right-sided pain is any worse with urination. He denies any difficulty in expelling his urine. SOCIAL HISTORY: A 72-[id number] history and still smokes. He has prior alcohol abuse, but none since 2010 and he has no IV drug abuse. Further review of systems other than what has already been mentioned reveals a colonoscopy in 2013 , which was normal. He has not had diarrhea or constipation. He reports normal prostate cancer screening with PSAs and DREs. FAMILY HISTORY: His father at a young age as a child. Mother lived into her 80s and from old age. She did not have cancer. PHYSICAL EXAMINATION: VITAL SIGNS: He has been afebrile. T-max 98.5, current 98.1. Blood pressure 132/63, heart rate 80, satting 97% on room air with respiratory rate of 16. Urine output has not been recorded. GENERAL: He appears comfortable in the bed. He is oriented to person and place. He has no obvious JVD. He has no tachycardia. ABDOMEN: Soft, nondistended. Minimal right mid quadrant tenderness, mild right CVA tenderness, no left CVA tenderness. GENITOURINARY: Testes are descended bilaterally without masses. Phallus was uncircumcised without lesions. EXTREMITIES: There is no significant lower extremity edema. LABORATORY VALUES: Reveal a BUN and creatinine of 18 and 1.06 from 10/16/2017; a CBC with a white count of 6.8, a borderline H&H and a normal platelet again from 10/16/2017. Urine was 4-6 wbc's, greater than 50 rbc's, 2+ bacteria, and 7 -10 squamous cells. I suspect this was a contaminated specimen given his foreskin. ASSESSMENT AND PLAN: We have a 66-year-old male with apparently a difficult social situation regarding followup, who have been attempting to get cardiac clearance for so that he can undergo extracorporal shockwave lithotripsy and get the current right indwelling stent out that was placed in early September. He may or may not actually have pyelonephritis, but I do think he has some stent pain. It is not unreasonable to treat him with antibiotics at this time. I doubt that it is a significant pyelonephritis in the absence of a white count and temperature. I have asked that he get cardiac clearance during this stay so that we can set up extracorporeal shock wave lithotripsy as an outpatient. If he is indeed on Plavix, then this would need to be held and I would be asking for such approval. If he is not, then he just needs to be cleared from a cardiovascular standpoint to undergo general anesthesia. Once he has obtained everything that Cardiology would need from him to clear him, then he may be discharged to home and I will see him as an outpatient to further set up the procedure. BRANDT
[2017-10-18] MEDS: Sodium Chloride 0.9% 1,000 ML IV SCH (04:00)
[2017-10-18 06:11] LABS: ALT (SGPT) 19 U/L (8-55); AST (SGOT) 12 U/L (5-34); Albumin 3.4 g/dL (3.4-4.8); Alkaline Phosphatase 72 U/L (40-150); Anion Gap 11 mmol/L (10-20); BUN (Urea Nitrogen) 21 mg/dL (8.4-25.7); Bilirubin, Total 0.3 mg/dL (0.2-1.2); Calc. Creatinine Clearance 86 mL/min (70-130); Calcium 8.8 mg/dL (7.8-10.44); Carbon Dioxide 28 mmol/L (23-31); Chloride 106 mmol/L (98-107); Estimated GFR-MDRD Greater than 90; Globulin 2.4 g/dL (2.4-3.5); Glucose 111 mg/dL (80-115); Potassium 3.7 mmol/L (3.5-5.1); Protein, Total 5.8 g/dL (5.8-8.1); Sodium 141 mmol/L (136-145)
[2017-10-18 06:24] LABS: Eosinophils 7 % (0-10); Lymphocytes 49 % (21-51); MDiff Complete? YES; Mean Corpuscular HGB CONC 32.9 g/dL (32.0-36.0); Mean Corpuscular Hemoglobin 28.2 pg (27.0-31.0); Mean Corpuscular Volume 85.8 fl (80.0-94.0); Mean Platelet Volume 8.7 fL (7.4-10.4); Monocytes 8 % (0-10); Neutrophil 35 % (42-75); PLT Morphology Comment Appears Adequate; Platelet Count 200 thou/uL (130-400); RBC Distribution Width 13.1 % (11.5-14.5); Red Blood Cell (RBC) Count 4.27 mill/uL (4.70-6.10); White Blood Cell (WBC) Count 5.8 thou/uL (4.8-10.8)
[2017-10-18] MEDS: Oseltamivir 75 MG CAP PO SCH (09:10)
[2017-10-18] MEDS: CEFTRIAXONE 2GM/50 ML BAG 2 GM in Premix Bag 1 BAG IVPB SCH (09:11)
[2017-10-18] MEDS: Famotidine 20 MG TAB PO SCH (09:11)
[2017-10-18] MEDS: Tamsulosin HCl 0.4 MG CAP PO SCH (09:11)
--- NOTE | 2017-10-18 10:55 | PDOC.PN ---
- Subjective Encounter Start Date: 10/18/17 Encounter Start Time: 09:20 -: old records requested/rev Patient seen and examined. No new complaints. No overnight events - Objective Resuscitation Status: Resuscitation Status FULL:Full Resuscitation MAR Reviewed: Yes Vital Signs & Weight: Vital Signs (12 hours) Temp Pulse Resp BP BP BP BP 10/18/17 07:35 97.8 F 71 16 131/72 140/77 133/66 10/18/17 04:00 98.5 F 71 16 106/51 L 10/17/17 23:08 98.3 F 63 16 120/60 Pulse Ox 10/18/17 07:35 99 10/18/17 04:00 98 10/17/17 23:08 95 Weight Weight 138 lb 4.8 oz I&O: 10/17/17 10/18/17 10/19/17 06:59 06:59 06:59 Intake Total 200 1945 Balance 200 1945 Result Diagrams: 10/18/17 04:12 10/18/17 04:12 Additional Labs: Accuchecks 10/18/17 10/17/17 10/17/17 05:44 20:41 17:06 POC Glucose 70 250 H 219 H Phys Exam - Physical Examination Constitutional: NAD HEENT: PERRLA, moist MMs, sclera anicteric Neck: no JVD, supple Respiratory: no wheezing, no rales, no rhonchi Cardiovascular: RRR, no significant murmur, no rub Gastrointestinal: soft, non-tender, no distention, positive bowel sounds Musculoskeletal: no edema, pulses present Neurological: non-focal, normal sensation, moves all 4 limbs Lymphatic: no nodes Psychiatric: normal affect Skin: no rash, normal turgor Dx/Plan (1) Acute pyelonephritis Code(s): N10 - ACUTE PYELONEPHRITIS Status: Acute (2) Hydronephrosis, right Code(s): N13.30 - UNSPECIFIED HYDRONEPHROSIS Status: Acute (3) Hypotension Status: Resolved (4) Syncope due to orthostatic hypotension Code(s): I95.1 - ORTHOSTATIC HYPOTENSION Status: Acute (5) DM2 (diabetes mellitus, type 2) Status: Chronic Qualifiers: (6) Hypertension Code(s): I10 - ESSENTIAL (PRIMARY) HYPERTENSION Status: Chronic Qualifiers: (7) Right nephrolithiasis Code(s): N20.0 - CALCULUS OF KIDNEY Status: Chronic - Plan cont current plan of care, continue antibiotics * cipro on discharge * cardiology cleared for outpt surgery * keep on hold BP meds , if BP rise then start low dose of meds * medication reviewed as below * symptomatic treatment. * see discharge mikey Review of Systems - Review of Systems ENT: negative: Ear Pain, Ear Discharge, Nose Pain, Nose Discharge, Nose Congestion, Mouth Pain, Mouth Swelling, Throat Pain, Throat Swelling, Other Respiratory: negative: Cough, Dry, Shortness of Breath, Hemoptysis, SOB with Excertion, Pleuritic Pain, Sputum, Wheezing Cardiovascular: negative: chest pain, palpitations, orthopnea, paroxysmal nocturnal dyspnea, edema, light headedness, other Gastrointestinal: negative: Nausea, Vomiting, Abdominal Pain, Diarrhea, Constipation, Melena, Hematochezia, Other Genitourinary: negative: Dysuria, Frequency, Incontinence, Hematuria, Retention , Other Musculoskeletal: negative: Neck Pain, Shoulder Pain, Arm Pain, Back Pain, Hand Pain, Leg Pain, Foot Pain, Other Skin: negative: Rash, Lesions, Deandre, Bruising, Other Other: not reliable due to cognitive status - Medications/Allergies Allergies/Adverse Reactions: Allergies Allergy/AdvReac Type Severity Reaction Status Date / Time No Known Allergies Allergy Verified 10/17/17 01:39 Medications: Current Medications Acetaminophen (Tylenol) 650 mg PO Q4H PRN PRN Reason: Headache/Fever or Pain Hydrocodone Bitart/Acetaminophen (Rhodes 5/325) 1 tab PO Q4H PRN PRN Reason: Moderate Pain (4-6) Al Hydroxide/Mg Hydroxide (Maalox) 30 ml PO Q6H PRN PRN Reason: Heartburn or Indigestion Artificial Tears (Tears Naturale) 0 drop EA EYE PRN PRN PRN Reason: Dry Eyes Atorvastatin Calcium (Lipitor) 40 mg PO HS [facility] Last Admin: 10/17/17 20:11 Dose: 40 mg Dextrose/Water (Dextrose 50%) 25 gm SLOW IVP PRN PRN PRN Reason: Hypoglycemia Famotidine (Pepcid) 20 mg PO BID [facility] Last Admin: 10/18/17 09:11 Dose: 20 mg Glucagon (Glucagon) 1 mg IM PRN PRN PRN Reason: Hypoglycemia Guaifenesin (Robitussin Sf) 200 mg PO Q4H PRN PRN Reason: Cough Hydralazine HCl (Apresoline) 10 mg SLOW IVP Q4H PRN PRN Reason: Systolic BP > 180 Dextrose/Water (D5w) 1,000 mls @ 0 mls/hr IV .Q0M PRN; As Directed PRN Reason: Hypoglycemia CEFTRIAXONE 2GM/50 ML BAG 2 gm (/ Device) 50 mls @ 100 mls/hr IVPB 0800 [facility] Last Admin: 10/18/17 09:11 Dose: 50 mls Sodium Chloride (Normal Saline 0.9%) 1,000 mls @ 70 mls/hr IV .[id number] [facility] Last Admin: 10/18/17 04:00 Dose: 1,000 mls Insulin Detemir 15 units/ (Miscellaneous Medication) 0.15 mls @ 0 mls/hr [facility] PRN Reason: As Directed Insulin Human Lispro (Humalog) 0 units SC .MODERATE SLIDING SC PRN PRN Reason: Moderate Correctional Scale Last Admin: 10/17/17 17:21 Dose: 4 unit Insulin Human Lispro (Humalog) 0 units SC .BEDTIME SLIDING SC PRN PRN Reason: Bedtime Correctional Scale Loperamide HCl (Imodium) 2 mg PO PRN PRN PRN Reason: Diarrhea/Loose Stools Loratadine (Claritin) 10 mg PO DAILYPRN PRN PRN Reason: Sinus Symptoms Magnesium Hydroxide (Milk Of Magnesium) 30 ml PO DAILYPRN PRN PRN Reason: Constipation Mineral Oil/White Petrolatum (Eucerin Cream) 0 gm TOP BIDPRN PRN PRN Reason: Dry Skin Ondansetron HCl (Zofran Odt) 4 mg PO Q6H PRN PRN Reason: Nausea/Vomiting Ondansetron HCl (Zofran) 4 mg IVP Q6H PRN PRN Reason: Nausea/Vomiting Oseltamivir Phosphate (Tamiflu) 75 mg PO DAILY [facility] Last Admin: 10/18/17 09:10 Dose: 75 mg Phenol (Chloraseptic [place] 180 Ml Bot) 0 ml PO PRN PRN PRN Reason: Sore Throat Senna (Senokot) 2 tab PO HSPRN PRN PRN Reason: Constipation Sodium Chloride ([place] Nasal [place] 0.65%) 0 ml EA NARE QIDPRN PRN PRN Reason: Nasal Congestion Tamsulosin HCl (Flomax) 0.4 mg PO DAILY [facility] Last Admin: 10/18/17 09:11 Dose: 0.4 mg Tramadol HCl (Ultram) 50 mg PO Q4H PRN PRN Reason: Pain Last Admin: 10/17/17 23:15 Dose: 50 mg Zolpidem Tartrate (Ambien) 5 mg PO HSPRN PRN PRN Reason: Insomnia
[2017-10-18 12:12] VITALS: BP 132/63; TEMP 98
--- NOTE | 2017-10-18 12:15 | DIS ---
PRIMARY CARE PHYSICIAN: Dr. Acuna DATE OF ADMISSION: 10/17/2017 DATE OF DISCHARGE: 10/18/2017 DISCHARGE DISPOSITION: residential. PRIMARY DISCHARGE DIAGNOSES: 1. Syncope due to orthostatic hypotension. 2. Right-sided pyelonephritis. 3. Right hydronephrosis. SECONDARY DISCHARGE DIAGNOSES: Right nephrolithiasis with stent, hypertension, diabetes type 2, eduardo gn enlargement of prostate, dyslipidemia. PRIMARY PROCEDURES/OPERATIONS: None. RADIOLOGICAL INVESTIGATION: CT brain was negative for any acute process. Chest x-ray was normal. C T of the abdomen and pelvis showed right-sided perinephric stranding and right hydronephrosis. SIGNIFICANT LABS: WBC 5.8, hemoglobin 12.0, platelet 200. Sodium 141, potassium 3.7, BUN 21, creati nine 0.76, calcium 8.8. LFTs normal. DISCHARGE MEDICATIONS: Lipitor 40 mg p.o. at bedtime, Cipro 500 mg p.o. b.i.d. for 15 days, NovoLog insulin as per sliding scale, Lantus insulin 15 units subcu daily, Tamiflu 75 mg p.o. daily for proph ylaxis, Flomax 0.4 mg p.o. daily, Tramadol 50 mg q.4 hourly p.r.n. CONTRAINDICATIONS: None. CODE STATUS: FULL CODE. INPATIENT CONSULTANTS: Dr. Parry was consulted for preoperative clearance. Dr. Joy Adkins was consulted for right-sided hydronephrosis and she recommended lithotripsy treatment on outpatient basi s. TEST RESULTS PENDING ON DISCHARGE: None. ALLERGIES: No known drug allergy. DISCHARGE PLAN: Post hospital, the patient will follow up with primary care physician and Dr. Joy Adkins as instructed. HOSPITAL COURSE: A 67-year-old male who was at the long term where he was having an episode of sy ncope which was related with hypotension. He was on a bunch of blood pressure medication that might have contributed to hypotension. He was also complaining of right flank pain and that is why in the emergency room, CT of the abdomen and pelvis showed right-sided hydronephrosis and right-sided pyelon ephritis. His urinalysis was also suspected for UTI. We admitted to telemetry floor. We hydrated with IV fluid. We treated him with Rocephin. On discharge, we changed to p.o. Cipro for another 15 days. During this admission, his blood pressure remained on the lower side and that is why we discon tinued antihypertensive medication, but the patient's antihypertensive medications can be restarted w ith lisinopril 5 mg p.o. daily if blood pressure goes up. Urology was okay with continuing antibioti c therapy. Urology recommended cardiology clearance for lithotripsy procedure on an outpatient basis . Dr. Parry precleared him for surgical procedure. Now at this point, patient is afebrile, hemod ynamically stable. He will continue the above-mentioned medication and Dr. Joy Adkins will make ap pointment on an outpatient basis for lithotripsy. The patient is seen and examined at bedside today. Please see my progress note from today for furthe r details. Paperwork for discharge done. Discharge medication reconciliation done. At this point, we are not giving him antihypertensive medication to prevent orthostatic hypotension, but if blood pressure starts high then antihypertensive medication with monotherapy at low dose can b e started at long term. Overall, the patient is medically stable for discharge today.
[2017-10-18] MEDS ORDERED: Insulin Detemir 100 UNITS/ML 15 UNITS in Pre-Filled Syringe 1 EACH SC SCH (21:00)
== END 2017-10-18 14:22 ==
LOC: ERS 21:20 → 2SW 10-17 01:07
PROVIDERS: ADMIT Family Medicine; ATTEND Family Medicine
DX: I95.1 Orthostatic hypotension (principal); N12 Tubulo-interstitial nephritis, not specified as acute or chronic; N13.30 Unspecified hydronephrosis; N20.0 Calculus of kidney; I10 Essential (primary) hypertension; E11.9 Type 2 diabetes mellitus without complications; N40.0 Benign prostatic hyperplasia without lower urinary tract symptoms; E78.5 Hyperlipidemia, unspecified; I25.10 Atherosclerotic heart disease of native coronary artery without angina pectoris; I65.29 Occlusion and stenosis of unspecified carotid artery; F41.9 Anxiety disorder, unspecified; F32.9 Major depressive disorder, single episode, unspecified; F20.9 Schizophrenia, unspecified; F17.210 Nicotine dependence, cigarettes, uncomplicated; I25.2 Old myocardial infarction; I48.92 Unspecified atrial flutter; Z79.4 Long term (current) use of insulin; Z79.899 Other long term (current) drug therapy; Z96.0 Presence of urogenital implants; Z98.890 Other specified postprocedural states; Z91.5 Personal history of self-harm; Z86.73 Personal history of transient ischemic attack (TIA), and cerebral infarction without residual deficits
CPT/HCPCS: 80053; 82550; 82553; 82962 ×2; 84484 ×2; 85025; 93005; 93306; 96361 ×2; 96365; 96366; 99285; G0378; J0696 ×2; 36415; 36416; J1815; J7050

== ENCOUNTER 2017-10-31 08:50 | Day surgery (SDC) | payer MEDICARE ==
[2017-10-31] MEDS ORDERED: cefTRIAXone\\ROCEPHIN 1 GM, Syringe 0.4 ML in Sterile Water 9.6 ML SLOW IVP SCH (10:00)
--- NOTE | 2017-10-31 11:03 | RAD ---
ABDOMEN ONE VIEW: History: Ureteral stone. Stent. FINDINGS: The visualized bowel gas pattern is nonspecific. Irregular shaped stone over the inferior pole of the right renal shadow is similar in appearance to the prior CT. Double pigtail right ureteral stent is in good radiographic position. There is calcification over the arterial structures. IMPRESSION: 1. Right ureteral stent. Right renal calculus. 2. Atherosclerosis. POS: [facility]
[2017-10-31] MEDS ORDERED: Fentanyl 100 MCG/2 ML VIAL ONE (11:17)
[2017-10-31] MEDS ORDERED: Furosemide 20 MG/2 ML VIAL ONE (11:18)
[2017-10-31] MEDS ORDERED: Ondansetron HCl/PF 4 MG/2 ML Vial ONE ×2 (13:25→15:02)
[2017-10-31] MEDS ORDERED: PHENYLEPHRINE-NS 100 MCG/ML 10 ML SYRINGE ONE (15:02)
[2017-10-31] MEDS ORDERED: PROPOFOL 200 MG/20 ML VIAL ONE (15:02)
[2017-10-31] MEDS ORDERED: Dexamethasone 20 MG/5 ML VIAL ONE (15:02)
[2017-10-31] MEDS ORDERED: Lidocaine 1% PF 5 ML VIAL ONE (15:02)
--- NOTE | 2017-10-31 15:03 | OP ---
DATE OF SERVICE: 10/31/2017 PREOPERATIVE DIAGNOSIS: Right renal stone. POSTOPERATIVE DIAGNOSIS: Right renal stone. PROCEDURE: Extracorporeal shock wave lithotripsy as well as cystoscopy, right stent removal. SURGEON: Dr. Adkins. ANESTHESIA: General with laryngeal mask airway. COMPLICATIONS: No complications. SPECIMENS: No specimens. DRAINS: No drains remaining. ESTIMATED BLOOD LOSS: No blood loss. INDICATIONS: The patient is a 67-year-old male, who was admitted urgently with obstructing stone and had a stent placed previously. I tried to see him in followup. There was some concern with losing him in his communication with appropriate people at his facility. We were finally able to get him cl eared while he was admitted for a separate occasion of abdominal pain, and so we set him up for defin itive therapy. The patient was brought into the room by Anesthesia and laid on table in supine position. After rece iving general anesthetic, lithotripter could identify the stone in multiple planes and then a total o f 2500 shocks at a maximum power of 4-6 at a maximum rate of 80 per minute were delivered. Good frag mentation was noted. During this procedure and still remained supine, he was prepped and a flexible cystoscope was used to traverse the urethra and into the bladder where the stent was grasped and brou ght out through the urethral meatus without difficulty. Patient tolerated the procedure well and was then awakened and transferred back in stable condition.
== END 2017-10-31 16:40 | disposition home or self-care (01) ==
LOC: SDC 08:50
PROVIDERS: ATTEND Urology
PROC: 0TF3XZZ Fragmentation in Right Kidney Pelvis, External Approach (ICD-10-PCS; principal; 2017-10-31)
PROC: 0TP98DZ Removal of Intraluminal Device from Ureter, Via Natural or Artificial Opening Endoscopic (ICD-10-PCS; 2017-10-31)
DX: N20.0 Calculus of kidney (principal); I10 Essential (primary) hypertension; E11.9 Type 2 diabetes mellitus without complications; E78.00 Pure hypercholesterolemia, unspecified; N39.0 Urinary tract infection, site not specified; F31.9 Bipolar disorder, unspecified; F17.210 Nicotine dependence, cigarettes, uncomplicated; Z86.73 Personal history of transient ischemic attack (TIA), and cerebral infarction without residual deficits; Z98.890 Other specified postprocedural states
CPT/HCPCS: 36416; 74018; A4216; J0696; J1100; J1940; J2001; J2405; J2704; J3010

== ENCOUNTER 2017-11-29 09:14 | Outpatient (CLI) | payer MEDICARE ==
--- NOTE | 2017-11-29 11:01 | RAD ---
KUB: Date: 11-29-17 Comparison: 10-31-17 History: Renal stone disease. FINDINGS: The prior exam demonstrated a right double J ureteral stent, which has been removed. There was also a calcification in the right upper quadrant on the prior exam measuring 8 mm, suggesting an intrarenal stone on the right. That calcification is no longer visualized. Stool is seen throughout the colon, partially obscuring bilateral renal shadows. No discrete renal stone is appreciated on this exam. The bowel gas pattern appears nonobstructed. IMPRESSION: Nonobstructed bowel gas pattern. Previously noted right renal stone is no longer visualized and doubl e J ureteral stent on the right has been removed. POS: [facility]
== END 2017-11-29 09:15 | disposition home or self-care (01) ==
LOC: RAD 09:14
PROVIDERS: ATTEND Urology
DX: N20.0 Calculus of kidney (principal); Z96.0 Presence of urogenital implants
CPT/HCPCS: 74018

== ENCOUNTER 2019-07-04 12:50 | Emergency (ER) | payer MEDICARE, MEDICAID ==
[2019-07-04 13:33] LABS: #Basophils 0.1 thou/uL (0.0-0.2); #Eosinphils 0.3 thou/uL (0.0-0.7); #Lymphocytes 2.6 thou/uL (1.20-3.40); #Monocytes 0.6 thou/uL (0.11-0.59); #Neutrophils 3.6 thou/uL (1.40-6.50); %Basophils 1.5 % (0.0-1.0); %Eosinophils 4.7 % (0.0-10.0); %Monocytes 8.7 % (0.0-10.0); %Neutrophils 49.2 % (42.0-75.0); Hemoglobin 15.3 g/dL (14.0-18.0); Mean Corpuscular HGB CONC 31.2 g/dL (32.0-36.0); Mean Corpuscular Hemoglobin 26.2 pg (27.0-31.0); Platelet Count 211 thou/uL (130-400); RBC Distribution Width 14.5 % (11.5-14.5); Red Blood Cell (RBC) Count 5.82 mill/uL (4.70-6.10); White Blood Cell (WBC) Count 7.3 thou/uL (4.8-10.8)
[2019-07-04] MEDS ORDERED: Ketorolac Tromethamine 30 MG/ML VIAL ONE (13:39)
[2019-07-04 13:57] LABS: ALT (SGPT) 18 U/L (8-55); AST (SGOT) 13 U/L (5-34); Albumin 3.9 g/dL (3.4-4.8); Alkaline Phosphatase 96 U/L (40-110); Anion Gap 10 mmol/L (10-20); BUN (Urea Nitrogen) 21 mg/dL (8.4-25.7); Bilirubin, Total 0.4 mg/dL (0.2-1.2); CK (CPK) 66 U/L (30-200); Calc. Creatinine Clearance 0 mL/min (70-130); Calcium 8.7 mg/dL (7.8-10.44); Carbon Dioxide 28 mmol/L (23-31); Chloride 109 mmol/L (98-107); Estimated GFR-MDRD 84; Glucose 151 mg/dL (80-115); Lipase 9 U/L (8-78); Potassium 4.5 mmol/L (3.5-5.1); Protein, Total 6.9 g/dL (5.8-8.1); Sodium 142 mmol/L (136-145)
--- NOTE | 2019-07-04 14:17 | RAD ---
RIGHT SHOULDER 3 VIEWS: Date: 07/04/19 CLINICAL HISTORY: Pain. FINDINGS: No fracture or dislocation. 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 Reference made to 02/17/19 exam, without significant interval change. IMPRESSION: No acute osseous abnormality of right shoulder. POS: [facility]
--- NOTE | 2019-07-04 14:18 | RAD ---
FRONTAL VIEW CHEST: Date: 07/04/19 INDICATION: Pain. FINDINGS: There is enlargement of the cardiac silhouette. This does obscure the left lower lung zone from view. There is hazy, increased density of the left mid to lower chest. Right lung is grossly clear. There is prominence of pulmonary vasculature. IMPRESSION: Added density of left hemithorax with obscuration of left lower lung zone due to enlarged cardiac yosi houette. This may be on the basis of pleural fluid. Consider follow-up with dedicated 2 view chest for further evaluation. POS: [facility]
[2019-07-04] MEDS ORDERED: hydrALAZINE 20 MG/ML VIAL ONE (15:53)
[2019-07-04 16:08] LABS: Troponin I Less than 0.010 ng/mL (< 0.028)
== END 2019-07-04 16:45 ==
LOC: ERS 12:50
DX: M25.511 Pain in right shoulder (principal); I10 Essential (primary) hypertension; I25.10 Atherosclerotic heart disease of native coronary artery without angina pectoris; E78.5 Hyperlipidemia, unspecified; E11.9 Type 2 diabetes mellitus without complications; N40.0 Benign prostatic hyperplasia without lower urinary tract symptoms; F41.9 Anxiety disorder, unspecified; F20.9 Schizophrenia, unspecified; F32.9 Major depressive disorder, single episode, unspecified; F17.210 Nicotine dependence, cigarettes, uncomplicated; Z86.73 Personal history of transient ischemic attack (TIA), and cerebral infarction without residual deficits
CPT/HCPCS: 36415; 71045; 80053; 82550; 83690; 84484; 85025; 85652; 86140; 93005; 94760; 96374; 96375; J0360; J1885

== ENCOUNTER 2019-12-09 15:17 | Observation (INO) | payer MEDICARE, MEDICAID ==
--- NOTE | 2019-12-09 20:27 | HP ---
PRIMARY CARE PHYSICIAN: Jordana Coe PA-C in [place]. CHIEF COMPLAINT: Reported left-sided weakness. HISTORY OF PRESENT ILLNESS: The patient has apparent dementia, likely vascular, is unable to give a complete history. He is very interactive and can give lots of details about his past both recent and more distant, but he is not oriented to the year, to the date, did not know the President, and did not know why he was here. He stated he did not remember having any weakness at all. Per the emergency room physician notes in [place], the patient was brought in by EMS because of left-sided weakness, left-sided weakness of the left arm, left leg, and left facial droop. The EMS noted with left-sided arm and leg weakness that resolved by the time he arrived to the emergency room. They thought he might still have a little bit of left facial droop. By the time ER physician saw him, he did not notice a left facial droop at all. The patient had a negative CT of the brain in [place] that did show lots of old strokes but nothing new. He also had a CTA, which showed lots of narrowing, but no occlusive thrombus and so he was transferred here for further management. REVIEW OF SYSTEMS: CONSTITUTIONAL: No fevers. No chills. EYES: No double vision or blurred vision. ENT: No congestion, drainage, or sore throat. CARDIOVASCULAR: No chest pain or palpitations. There were no racing heart. PULMONARY: No coughing, wheezing, or shortness of breath. GASTROINTESTINAL: No abdominal pain. No nausea or vomiting. No diarrhea or constipation. He does report he gets some right lower quadrant or right flank pain on and off and has had hematuria before, but none recently. He is not able to tell me if those symptoms were back when he had his kidney stones or not. He did not remember having kidney stones, but he has been seen here before twice for that. GENITOURINARY: No dysuria or current hematuria. MUSCULOSKELETAL: No muscle aches or joint pain. SKIN: No rashes or lesions noted. NEUROLOGIC: No numbness, tingling, or focal weakness per patient report. PAST MEDICAL HISTORY: Most history taken from the chart. The patient is able to confirm a lot of it. Some of that he has not remembered anymore. 1. Coronary artery disease with previous heart attack up in [place] years ago. 2. Hypertension. 3. Hyperlipidemia. 4. Benign prostatic hyperplasia. 5. Previous nephrolithiasis. 6. Previous stroke. 7. Carotid artery stenosis. 8. Diabetes mellitus type 2, insulin dependent. 9. Previous dysphagia. PAST SURGICAL HISTORY: 1. Hernia repair. 2. Cystoscopy. 3. Right-sided ureteral stent placement. PAST PSYCHIATRIC HISTORY: Positive for anxiety, depression, schizophrenia, and history of previous suicide attempts. SOCIAL HISTORY: The patient lives at [facility]. He smokes about half a pack a day. No alcohol for many years. No illicit drug use. He is a full code as far as I can tell. His next of kin he did state he has a daughter, Mikki Parsons. He does not know any other contact information and he states that his medical decision maker would actually be his brother, Balbir Hernandez, who lives in [place], [place]. FAMILY HISTORY: He does not know of any family medical history that runs in his family. ALLERGIES: NO KNOWN DRUG ALLERGIES. CURRENT MEDICATIONS: 1. Lisinopril 5 mg daily. 2. Flomax 0.4 mg daily. 3. Lipitor 40 mg daily. 4. Humalog unknown dose sliding scale. 5. Lantus 35 units subcutaneous daily. PHYSICAL EXAMINATION: VITAL SIGNS: Blood pressure 196/100, pulse 86, respirations 15, temperature 98.4, O2 saturation 99% on room air. GENERAL: This is a well-developed, well-nourished male, in no acute distress. HEENT: Pupils are equal, round, and reactive to light. Oropharynx clear without lesions, erythema, or exudate. NECK: Supple. No lymphadenopathy. No thyroid nodules or enlargement. HEART: Regular rate and rhythm. No murmurs, rubs, or gallops. LUNGS: Clear to auscultation bilaterally. No wheezes, crackles, or rhonchi. ABDOMEN: Soft, nontender to palpation. Normoactive bowel sounds. No hepatosplenomegaly or other masses. EXTREMITIES: No clubbing, cyanosis, or edema. SKIN: No rashes or other lesions noted. NEUROLOGIC: The patient has no facial droop. He does answer questions a little bit slowly, but speaks clearly. He has equal strength in bilateral upper and lower extremities with equal reflexes. He is able to stand, does not walk though, usually uses a wheelchair to get around. PSYCHIATRIC: Alert, oriented to person and to place, knew he was in the hospital in [place]. He did not know the year, thought it was the year 1999. He did not know the month, thought it was November and he did not know who the President was. He also did not know why he was here just the nurse had told me that he had to go. LABORATORY DATA: CBC within normal limits. Coagulation profile normal. Complete metabolic panel is notable only for glucose of 145. The rest is normal. Troponin was indeterminate at 0.046. CK-MB was normal. Urinalysis was negative for evidence of infection. CT of the brain showed no acute intracranial abnormalities, but severe chronic ischemic changes and multiple remote infarcts. CT angio of the head and neck showed complete occlusion of the right internal carotid artery with reconstitution at the level of the supraclinoid right ICA, mild focal region of stenosis involving the left FACULTY MEMBER, some severe multifocal narrowing involving the left vertebral artery in multiple locations, mild luminal narrowing of the intracranial right vertebral artery and some severe narrowing along the origins of both the left external and right external carotid arteries. Chest x-ray, I did review the chest x-ray done in the emergency room along with the radiologist's report does show some mild pulmonary edema and heart size enlargement and trace left effusion. EKG done in the [place] [facility] showed normal sinus rhythm at 91 beats per minute. There was some ST depression in some of the lateral and inferior leads. Left ventricular hypertrophy. No ST-segment elevations. ASSESSMENT: 1. Left-sided weakness, now resolved. Transient ischemic attack versus stroke. The patient is very hypertensive right now. We will allow permissive hypertension in the hospital here and we will put him on daily aspirin. We will continue atorvastatin. We will increase the dose though to a high dose. We will also get stroke team involved and Neurology. 2. Severe cerebrovascular disease and carotid artery disease. The patient has an occluded carotid artery on one side but not on the other. It does not look he needs Vascular Surgery intervention at this point. We will increase the dose of his statin, though we will put him on daily aspirin. I am not sure why he is not on this already. 3. Cardiomegaly with severe elevated blood pressures and evidence of congestive failure on the x-ray. He is not having any symptoms from this right now. However, I will go ahead and get an echocardiogram and we will give him a small dose of Lasix. 4. Dementia, likely vascular dementia from all his previous strokes. 5. Diabetes mellitus type 2, insulin dependent. We will put the patient on fingerstick blood sugars q.a.c. and h.s. and we will give him Lantus and insulin sliding scale. 6. History of coronary artery disease with previous myocardial infarction. We will continue the patient's atorvastatin, increase the dose, and I am starting aspirin. 7. Hypertension. We will allow permissive hypertension right now and depending on the results of the MRI if he does not have an acute stroke, we will need to bring it down acutely. 8. Code status. As far as I can tell at this point, the patient is a full code. We will try and contact the family as well and will have Palliative Care get involved with this patient. Job ID: [id number]
[2019-12-09] MEDS ORDERED: Acetaminophen 325 MG TAB PO PRN (21:49)
[2019-12-09] MEDS ORDERED: Senokot S 8.6-50 MG TAB PO PRN (21:49)
[2019-12-09] MEDS ORDERED: Dextrose 50% Abboject 50 ML SYRINGE SLOW IVP PRN (21:49)
[2019-12-09] MEDS ORDERED: hydrALAZINE 20 MG/ML VIAL SLOW IVP PRN (21:49)
[2019-12-09] MEDS ORDERED: HumaLOG 300 UNITS/3 ML VIAL SC PRN (21:49)
[2019-12-09] MEDS ORDERED: Dextrose 5% in Water 1,000 ML IV PRN (21:49)
[2019-12-09] MEDS ORDERED: Guaifenesin DM 100-10/5 ML UDCUP PO PRN (21:49)
[2019-12-09] MEDS ORDERED: Ondansetron ODT 4 MG TAB PO PRN (21:49)
[2019-12-09] MEDS ORDERED: Labetalol HCl 100 MG/20 ML VIAL SLOW IVP PRN (21:49)
[2019-12-09] MEDS ORDERED: Ondansetron PF 4 MG/2 ML Vial IVP PRN (21:49)
[2019-12-09] MEDS ORDERED: Acetaminophen 650 MG Suppository PR PRN (21:49)
[2019-12-09] MEDS ORDERED: Famotidine 20 MG TAB PO SCH (22:00)
[2019-12-09] MEDS ORDERED: Furosemide 40 MG/4 ML VIAL SLOW IVP SCH (22:00)
[2019-12-09] MEDS ORDERED: Atorvastatin Calcium 40 MG TAB PO SCH (22:00)
[2019-12-09 23:41] VITALS: BMI 24.9
[2019-12-10 04:49] LABS: #Basophils 0.1 thou/uL (0.0-0.2); #Eosinphils 0.2 thou/uL (0.0-0.7); #Lymphocytes 2.4 thou/uL (1.20-3.40); #Monocytes 0.7 thou/uL (0.11-0.59); #Neutrophils 4.8 thou/uL (1.40-6.50); %Basophils 0.8 % (0.0-1.0); %Eosinophils 2.8 % (0.0-10.0); %Lymphocytes 29.2 % (21.0-51.0); %Monocytes 8.5 % (0.0-10.0); %Neutrophils 58.8 % (42.0-75.0); Hemoglobin 14.3 g/dL (14.0-18.0); Mean Corpuscular HGB CONC 31.1 g/dL (32.0-36.0); Mean Corpuscular Hemoglobin 25.9 pg (27.0-31.0); Mean Corpuscular Volume 83.4 fL (78.0-98.0); Mean Platelet Volume 9.1 fL (7.4-10.4); Platelet Count 243 thou/uL (130-400); Red Blood Cell (RBC) Count 5.53 mill/uL (4.70-6.10); White Blood Cell (WBC) Count 8.2 thou/uL (4.8-10.8)
[2019-12-10 05:10] LABS: Anion Gap 11 mmol/L (10-20); BUN (Urea Nitrogen) 18 mg/dL (8.4-25.7); Calc. Creatinine Clearance 65 mL/min (70-130); Carbon Dioxide 26 mmol/L (23-31); Cardiac Risk 3.1 (Less than 4.5); Chloride 105 mmol/L (98-107); Cholesterol 113 mg/dl (< 200 Desired); Estimated GFR-MDRD 78; Glucose 284 mg/dL (80-115); HDL Cholesterol 36 mg/dL (>60 Neg Risk); LDL Cholesterol, Calculated 60 mg/dL; Magnesium 1.9 mg/dL (1.6-2.6); Potassium 3.7 mmol/L (3.5-5.1); Sodium 138 mmol/L (136-145); Triglycerides 87 mg/dL (Less than 150)
[2019-12-10] MEDS: HumaLOG 300 UNITS/3 ML VIAL SC PRN ×2 (06:07→11:09)
[2019-12-10 07:17] VITALS: TEMP 97.9
--- NOTE | 2019-12-10 08:54 | PDOC.HOSPP ---
- Subjective Encounter Date: 12/10/19 Encounter Time: 11:30 Subjective: Patient with no complaints this AM. Sleepy. No focal neuro deficits. Does have some peripheral visual deficits on stroke team exam but likely old. MRI just came back without new stroke, just lots of old strokes. - Objective Vital Signs & Weight: Vital Signs (12 hours) Temp Pulse Resp BP Pulse Ox 12/10/19 07:00 97.9 F 97 13 154/75 H 96 12/10/19 03:16 98.5 F 97 16 146/76 H 98 12/09/19 23:12 97.8 F 77 16 195/82 H 96 Weight Weight 159 lb 4.8 oz I&O: 12/09/19 12/10/19 12/11/19 06:59 06:59 06:59 Intake Total 254 Output Total 700 Balance -446 Result Diagrams: 12/10/19 04:31 12/10/19 04:31 Additional Labs: Accuchecks 12/10/19 12/09/19 05:27 23:20 POC Glucose 216 H 115 H Hospitalist ROS - Review of Systems Constitutional: denies: fever, chills Respiratory: denies: cough, dry, shortness of breath Cardiovascular: denies: chest pain, palpitations Gastrointestinal: reports: other (chronic on and off RLQ pain). denies: nausea , vomiting Neurological: denies: weakness - Medication Medications: Active Medications Generic Name Dose Route Start Last Admin Trade Name Freq PRN Reason Stop Dose Admin Insulin Human Lispro 0 units 12/09/19 21:49 12/10/19 06:07 Humalog SC 3 unit .MILD SLIDING SCALE PRN Administration Mild Correctional Scale Sodium Chloride 10 ml 12/09/19 21:49 12/09/19 23:09 Flush - Normal Saline IVF 10 ml PRN PRN Administration Saline Flush - Exam General Appearance: NAD, awake alert ENT: moist mucosa Heart: RRR, no murmur, no gallops, no rubs Respiratory: CTAB, no wheezes, no rales, no ronchi Gastrointestinal: soft, non-tender, non-distended, normal bowel sounds Neurological: cranial nerve grossly intact, no focal deficits Psychiatric: normal affect, normal behavior, oriented to person. negative: oriented to place, oriented to time Hosp A/P (1) TIA (transient ischemic attack) Code(s): G45.9 - TRANSIENT CEREBRAL ISCHEMIC ATTACK, UNSPECIFIED Status: Resolved (2) Vascular dementia Code(s): F01.50 - VASCULAR DEMENTIA WITHOUT BEHAVIORAL DISTURBANCE Status: Acute (3) Carotid artery stenosis Code(s): I65.29 - OCCLUSION AND STENOSIS OF UNSPECIFIED CAROTID ARTERY Status : Chronic Qualifiers: Laterality: right Qualified Code(s): I65.21 - Occlusion and stenosis of right carotid artery (4) Cardiomegaly Code(s): I51.7 - CARDIOMEGALY Status: Acute (5) DM2 (diabetes mellitus, type 2) Status: Chronic Qualifiers: (6) Hypertension Code(s): I10 - ESSENTIAL (PRIMARY) HYPERTENSION Status: Chronic Qualifiers: (7) CAD (coronary artery disease) Code(s): I25.10 - ATHSCL HEART DISEASE OF [place] CORONARY ARTERY W/O ANG PCTRS Status: Chronic - Plan ASA, Statin, permissive hypertension. MRI negative for acute stroke. Give home Lisinopril, will increase to 10mg daily. ECHO for cardiomegally and evidence of fluid overload on CXR. Lasix given yesterday. No symptoms. Will need f/u outpatient. Ok to discharge back to [facility]dc. F/u PCP in 1 week and referral to cardiology after that depending on ECHO results. DVT Proph: Lovenox
[2019-12-10] MEDS ORDERED: Enoxaparin Sodium 40 MG/0.4 ML SYRINGE SC SCH (09:00)
[2019-12-10] MEDS ORDERED: Famotidine 20 MG TAB PO SCH (09:00)
[2019-12-10] MEDS ORDERED: Insulin Glargine 35 UNITS in Pre-Filled Syringe 1 EACH SC SCH (09:00)
[2019-12-10] MEDS ORDERED: Aspirin 81 mg Enteric Coated Tablet PO SCH (09:00)
--- NOTE | 2019-12-10 10:45 | MRI ---
MRI BRAIN NONCONTRAST: DATE: 12/10/2019 HISTORY: 69-year-old male with acute stroke symptoms. Left upper extremity deficits. COMPARISON: No prior brain MRIs. FINDINGS: Many of the images are significantly degraded by patient motion. There are several regions of encepha lomalacia and gliosis consistent with old infarctions: 1)Large region extending from posterior medial right temporal lobe through right occipital lobe (righ t MEDICAL LAB SPECIALIST territory). This has laminar necrosis. 2)Moderate sized region at right upper parasagittal frontal lobe (right ANGEL territory). 3)Small region involving left upper frontal region (left ANGEL or left MCA territory or watershed zone) . The 1)and 2) old infarctions involve portions of the precentral gyri bilaterally (motor cortices). 4)Several tiny old lacunar infarctions in bilateral thalami and bilateral basal ganglia, and right si de of jie. 5)Additional several small patchy focal regions of encephalomalacia and gliosis in the left smith ra diata/left periventricular white matter and left lateral edge of body of corpus callosum, representin g deep cerebral white matter small old infarctions. Numerous tiny foci of hemosiderin deposition representing remote hemorrhages in the jie, left cerebr al peduncle junction with left thalamus, and left brachium pontis (left middle cerebellar peduncle). There is no acute intra-axial hemorrhage, restricted diffusion, mass effect, midline shift, or extra- axial fluid collection. There is diffuse brain parenchymal volume loss resulting in mild ventriculome bhargav. No obstructive hydrocephalus. IMPRESSION: 1. No acute intracranial findings; no acute infarction. 2. Multiple old infarctions in multiple vascular territories. The 2 largest are: a large one in rig ht posterior cerebral artery territory, and a moderate size one in right anterior cerebral artery ter ritory. 3. Multiple old lacunar infarctions in the brainstem, bilateral thalami, and bilateral basal ganglia . 4. Several old left deep cerebral white matter infarctions. 5. Several tiny foci of remote hemorrhages, mostly in the brainstem. MARIANNA Casanova POS: [facility]
[2019-12-10] MEDS ORDERED: hydrALAZINE 10 MG TAB PO PRN (11:43)
[2019-12-10] MEDS ORDERED: Lisinopril 5 MG TAB PO SCH (12:15)
[2019-12-10 16:33] VITALS: BP 122/83
[2019-12-10] MEDS ORDERED: Atorvastatin Calcium 40 MG TAB PO SCH (21:00)
--- NOTE | 2019-12-11 05:43 | DIS ---
DATE OF ADMISSION: 12/09/2019 DATE OF DISCHARGE: 12/10/2019 PRIMARY CARE PHYSICIAN: Jordana Coe, possibly Dr. Acuna. REASON FOR ADMISSION: Possible stroke. DIAGNOSES AT DISCHARGE: 1. Transient ischemic attack symptoms quickly resolved. 2. Vascular dementia. 3. Carotid artery stenosis on the right side with complete occlusion and filling distally. 4. Cardiomegaly. 5. Diabetes mellitus type 2. 6. Hypertension. 7. Coronary artery disease. PROCEDURES: 1. CT of the brain showing old strokes, but nothing acute. 2. CTA of the head and neck showing complete occlusion of the right internal carotid artery with reconstitution at the level of the supraclinoid right ICA. No significant ICA stenosis on the left. He does have some external carotid artery stenosis on bilateral sides and has significant diffuse intracranial disease, but no acute occlusion. 3. MRI of the brain showing multiple old infarctions in multiple vascular territories and multiple old lacunar infarctions and several tiny foci of remote hemorrhages mostly in the brainstem, but no acute intracranial findings, no acute infarction. CONSULTATIONS: None. SUMMARY OF HOSPITAL COURSE: This is a 69-year-old male with a history of previous strokes and heart attacks, who was sent from senior living in [place] for some weakness on his left side. This resolved by the time he is in the emergency room. He had negative CT and CTA as above in [place] and was sent here. The patient did have some loss of orientation, which is thought to likely be chronic. He had evidence of multiple infarctions throughout his brain with likely vascular dementia, probably it is the reason for him being in the senior living. The patient had MRI of the brain, it showed no acute stroke, so his blood pressure medicines were resumed to control his hypertension. He did have some cardiomegaly and possible congestion on his chest x-ray, so was given a dose of Lasix in the emergency room. He has not had any symptoms of coughing, wheezing, chest pain, or edema, but an echocardiogram has been done, the result is still pending on that. The patient was doing well on the day of discharge, back to his baseline, and is being discharged back to senior living to continue workup on his heart as an outpatient. Of note, the patient was not on aspirin or any other blood thinners. He has no history of bleeding. The previous intracranial hemorrhages looked to be hypertensive bleeds in his brain, not secondary to medications, so at this time, we are starting him on a daily baby aspirin and increasing his atorvastatin to 80 mg dose. We will also increase his lisinopril for his blood pressure control. Depending on the results of the echocardiogram, his outpatient physician may consider starting a low-dose beta tam as well. DISCHARGE MANAGEMENT: Discharged back to senior living. ACTIVITY: As tolerated. DIET: Diabetic, fluid-restricted diet. FOLLOWUP: Follow up with primary care physician in 7 days. They can review the echocardiogram at that point, if he has evidence of congestive failure, they can consider starting him on a beta tam and refer him to outpatient Cardiology evaluation. DISCHARGE MEDICATIONS: 1. Aspirin 81 mg daily, 30 tablets dispensed. 2. Atorvastatin 80 mg at night, 30 tablets dispensed. 3. Lisinopril 10 mg daily, 30 tablets dispensed. 4. Hydralazine 10 mg every 6 hours as needed for severe hypertension. 5. Lantus 35 units subcu each morning. 6. Tamsulosin 0.4 mg daily. Job ID: [id number]
[2019-12-11] MEDS ORDERED: Lisinopril 5 MG TAB PO SCH (09:00)
[2019-12-11] MEDS ORDERED: Tamsulosin HCl 0.4 MG CAP PO SCH (09:00)
== END 2019-12-10 19:45 ==
LOC: ERS 15:17 → 2SE 17:50
PROVIDERS: ADMIT Internal Medicine; ATTEND Internal Medicine
DX: G45.9 Transient cerebral ischemic attack, unspecified (principal); F01.50 Vascular dementia, unspecified severity, without behavioral disturbance, psychotic disturbance, mood disturbance, and anxiety; I11.9 Hypertensive heart disease without heart failure; E11.9 Type 2 diabetes mellitus without complications; I25.10 Atherosclerotic heart disease of native coronary artery without angina pectoris; Z79.82 Long term (current) use of aspirin; Z79.899 Other long term (current) drug therapy; Z79.4 Long term (current) use of insulin
CPT/HCPCS: 70551; 80048; 80061; 82962 ×2; 83735; 85025; 93306; 96372; 96374; 97116; 97139 ×3; 99285; G0378 ×3; 36415; 36416; J1650; J1815; J1940

== ENCOUNTER 2020-02-27 16:48 | Observation (INO) | payer MEDICARE, MEDICAID ==
[2020-02-27] MEDS ORDERED: Acetaminophen 325 MG TAB PO PRN (18:10)
[2020-02-27] MEDS ORDERED: Acetaminophen 650 MG Suppository PR PRN (18:10)
[2020-02-27] MEDS ORDERED: Dextrose 50% Abboject 50 ML SYRINGE SLOW IVP PRN (18:15)
[2020-02-27] MEDS ORDERED: HumaLOG 300 UNITS/3 ML VIAL SC PRN ×2 (18:15)
[2020-02-27] MEDS ORDERED: Dextrose 5% in Water 1,000 ML IV PRN (18:15)
--- NOTE | 2020-02-27 19:54 | HP ---
DATE OF ADMISSION: 02/27/2020. TIME OF ASSESSMENT: 1700 hours. PRIMARY CARE PHYSICIAN: Dr. Acuna. CHIEF COMPLAINT: Left-sided chest pain. HISTORY OF PRESENT ILLNESS: Mr. Hernandez is a 69-year-old gentleman, who presents to the Emergency Department today with complaints of left-sided chest pain that have been intermittent throughout the day. The patient states that he was resting in bed, when it started. Reports having similar pain like this in the past and has actually had an MS in the past as well. At present, his pain is fully settled, but he states every once in a while it comes back. The pain, he states that is sharp in nature, rating it a 6/10 in severity. He states it radiates down the left arm. Denies any associated shortness of breath, diaphoresis, nausea, or vomiting. Denies any abdominal pain. Denies any cough. Has not had any hemoptysis. All other review of systems are negative. ED COURSE: The patient was given nitroglycerin spray and 324 mg of aspirin as well as 0.5 inch of nitroglycerin paste. He has been transferred from [facility]. EKG repeated here showed normal sinus rhythm with heart rate of 90. Changes consistent with left atrial enlargement and left ventricular hypertrophy. T-wave inversions seen in V5 and V6 with no ST changes. LABORATORY DATA: He had laboratory studies done notable for white count of 11.6, hemoglobin 15.2, hematocrit 51.9, platelets 238, neutrophils 80, and bands 2. Sodium 142, potassium 4.5, BUN 19, creatinine 0.99, GFR greater than 90, and glucose 263. LFTs unremarkable. Lipase normal. Initial troponin negative at 0.025, second troponin 0.027. DIAGNOSTIC STUDIES: Chest x-ray done demonstrated an enlarged heart. The lungs otherwise clear and no acute changes present. Of note, the patient underwent an echocardiogram on December 09, 2019. He was noted to have an EF of 55% to 60% with severe concentric left ventricular hypertrophy. There was impaired relaxation consistent with diastolic dysfunction. Mild mitral regurgitation present. 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 Also admits to using cocaine in the past. PAST MEDICAL HISTORY: 1. Coronary artery disease. 2. MS. 3. Hyperlipidemia. 4. Hypertension. 5. History of CVA x2. 6. TIAs in the past. 7. BPH. 8. Dysphagia. 9. Cognitive communication deficit. 10. Dizziness. 11. Hypokalemia. 12. Anxiety. 13. Right carotid artery occlusion and stenosis. 14. Depression. 15. Schizophrenia. 16. History of previous suicide attempt. SOCIAL HISTORY: The patient reports smoking cigarettes in the past, but has not for the last 3 years. Also reports drinking alcohol occasionally, but no longer drinks. Also reports a history of cocaine use in the past. PHYSICAL EXAMINATION: GENERAL: The patient appears thin, well developed, and in no acute distress. VITAL SIGNS: Temperature 98.7, pulse 99, blood pressure 143/83, respirations 16, and O2 saturation 94% on room air. HEENT: Normocephalic and atraumatic. Pupils are equal, round, and reactive to light. Sclerae icterus. Oropharynx is clear. NECK: Supple. LUNGS: Clear to auscultation bilaterally without any wheezes, rales, or rhonchi. CARDIAC: Regular rate and rhythm. No chest wall tenderness. ABDOMEN: Soft, nontender, nondistended. Normoactive bowel sounds present. No guarding or rigidity. No renal angle tenderness. EXTREMITIES: No lower leg swelling or edema. No calf tenderness. SKIN: Warm and dry. INVESTIGATIONS: As mentioned above in HPI. IMPRESSION AND PLAN: Mr. Hernandez is a 69-year-old gentleman presenting with chest pain, who is being admitted for management of the following. 1. Acute coronary syndrome rule out. The patient with a history of coronary artery disease, hypertension, diabetes mellitus, and myocardial infarction x2 in the past. Last cardiac catheterization on falls from June 2013. Last echo was from 2 months ago in November. We will continue to trend troponins and keep n.p.o. at midnight with plans for stress test in the morning. We will obtain a urine drug screen. The patient will remain on continuous cardiac monitoring. We will add lipid panel for the morning. We will continue daily aspirin. The patient is pain-free at present. 2. Diabetes mellitus. We will check hemoglobin A1c. We will continue to monitor blood glucose. We will initiate an insulin sliding scale and will start him on D5 half-normal saline at midnight, since he will be fasting in preparation for stress test in the morning. 3. Hypertension. Monitor blood pressure and reconcile home medications once verified. 4. Leukocytosis. The patient with elevated white count of 11.6, 80 neutrophils, and two bands. No signs or symptoms of infection. We will obtain a urinalysis in addition to the urine drug screen. Chest x-ray is clear. Continue to monitor. He is afebrile. 5. Schizophrenia/depression. We will reconcile home medications once verified. 6. Gastrointestinal prophylaxis with famotidine. 7. Deep venous thrombosis prophylaxis with mechanical SCDs. 8. Code status full. Surrogate decision maker is Bernadette Santos. Case discussed with attending who agrees upon care as described above. Job ID: [id number]
[2020-02-27 20:04] LABS: CKMB 2.3 ng/mL (0-6.6)
[2020-02-27 20:59] VITALS: BMI 25.8
[2020-02-27 22:18] LABS: Bacteria/HPF None Seen HPF (None Seen); Bilirubin Negative (Negative); Blood, Urine Negative (Negative); Clarity Clear (Clear); Glucose, Urine (Dipstick) 200 mg/dL (Negative); Leukocyte Negative Leu/uL (Negative); Mucous/LPF 1+ LPF (<2+); Nitrite Negative (Negative); Protein, Urine (Dipstick) 20 mg/dL (Neg-Trace); RBC/HPF 0-3 HPF (0-3); Squamous Epithelial None Seen HPF (0-3); Urobilinogen Normal mg/dL (Less than 2)
[2020-02-27 22:25] LABS: Amphetamine Not Detected (NotDetected); Barbiturates Screen Not Detected (NotDetected); Benzodiazepine Screen Not Detected (NotDetected); Cocaine Metabolite Screen Not Detected (NotDetected); Medtox Control Line Valid? VALID (VALID); Medtox Reader # READER 4; Methadone Not Detected (NotDetected); Methamphetamine Not Detected (NotDetected); Opiate Screen Not Detected (NotDetected); Oxycodone Screen Not Detected (NotDetected); Phencyclidine (PCP) Not Detected (NotDetected); THC/Cannabinoid Screen Not Detected (NotDetected); Tricyclic Screen Not Detected (NotDetected)
[2020-02-27 22:27] LABS: Sperm/HPF 2+ HPF (None Seen)
[2020-02-27 22:28] LABS: Urine Culture Reflex Yes Yes
[2020-02-27] MEDS ORDERED: Dextrose 5 %-0.45 % NaCl 1,000 ML IV SCH (23:55)
[2020-02-28 04:21] LABS: #Basophils 0.1 thou/uL (0.0-0.2); #Eosinphils 0.1 thou/uL (0.0-0.7); #Lymphocytes 2.6 thou/uL (1.20-3.40); #Monocytes 0.9 thou/uL (0.11-0.59); #Neutrophils 5.4 thou/uL (1.40-6.50); %Basophils 1.2 % (0.0-1.0); %Eosinophils 1.6 % (0.0-10.0); %Lymphocytes 28.2 % (21.0-51.0); %Monocytes 9.8 % (0.0-10.0); %Neutrophils 59.3 % (42.0-75.0); Hemoglobin 14.6 g/dL (14.0-18.0); Mean Corpuscular HGB CONC 30.5 g/dL (32.0-36.0); Mean Corpuscular Hemoglobin 25.8 pg (27.0-31.0); Mean Corpuscular Volume 84.5 fL (78.0-98.0); Mean Platelet Volume 9.5 fL (7.4-10.4); Platelet Count 195 thou/uL (130-400); Red Blood Cell (RBC) Count 5.66 mill/uL (4.70-6.10); White Blood Cell (WBC) Count 9.2 thou/uL (4.8-10.8)
[2020-02-28 04:29] LABS: Hemoglobin A1c 8.8 % (4.0-6.0)
[2020-02-28 04:43] LABS: Anion Gap 10 mmol/L (10-20); BUN (Urea Nitrogen) 18 mg/dL (8.4-25.7); Calc. Creatinine Clearance 83 mL/min (70-130); Calcium 8.7 mg/dL (7.8-10.44); Carbon Dioxide 28 mmol/L (23-31); Chloride 107 mmol/L (98-107); Estimated GFR-MDRD Greater than 90; Glucose 222 mg/dL (80-115); Sodium 141 mmol/L (136-145)
[2020-02-28] MEDS: Aspirin 81 mg Enteric Coated Tablet PO SCH (09:00)
[2020-02-28] MEDS ORDERED: cloNIDine 0.1mg/24 Hour PATCH TD SCH (09:00)
[2020-02-28] MEDS ORDERED: hydrALAZINE 20 MG/ML VIAL SLOW IVP SCH (11:45)
[2020-02-28] MEDS: Nitroglycerin 0.4 MG TAB (25 Tab Bottle) PO PRN ×2 (12:42→12:50)
[2020-02-28] MEDS ORDERED: Iopamidol-370 76% 500 ML 1 ML ONE (12:52)
[2020-02-28 14:42] LABS: Troponin I 0.013 ng/mL (< 0.028)
--- NOTE | 2020-02-28 16:12 | PDOC.HOSPP ---
- Subjective Encounter Date: 02/28/20 Encounter Time: 08:40 Subjective: Pt seen for followup re: chest pain. Reports on and off chest pain. Pt is a poor historian. - Objective Vital Signs & Weight: Vital Signs (12 hours) Temp Pulse Resp BP BP Pulse Ox 02/28/20 12:41 147/67 H 02/28/20 11:54 188/92 H 02/28/20 11:15 97.6 F 77 16 188/92 H 95 02/28/20 07:50 97.7 F 83 18 179/90 H 96 Weight Admit Weight 165 lb Weight 165 lb I&O: 02/27/20 02/28/20 02/29/20 06:59 06:59 06:59 Intake Total 540 Output Total 340 Balance 200 Result Diagrams: 02/28/20 04:11 02/28/20 04:11 Additional Labs: Accuchecks 02/28/20 02/28/20 10:47 06:15 POC Glucose 205 H 185 H Labs and MARs reviewed by me EKG Reviewed by me: Yes (Tele: NSR) Hospitalist ROS - Review of Systems Constitutional: denies: fever, chills, sweats, weakness, malaise Cardiovascular: reports: chest pain. denies: palpitations, orthopnea, paroxysmal noc. dyspnea, edema, light headedness Gastrointestinal: denies: nausea, vomiting, abdominal pain, diarrhea, constipation, melena, hematochezia Genitourinary: denies: dysuria, frequency, incontinence, hematuria, retention Skin: denies: rash, lesions, cedrick, bruising - Medication Medications: Active Medications Generic Name Dose Route Start Last Admin Trade Name Kaylan PRN Reason Stop Dose Admin Aspirin 81 mg 02/28/20 09:00 02/28/20 09:00 Ecotrin PO 81 mg DAILY DARYA Administration Clonidine 0.1 mg 02/28/20 09:00 02/28/20 08:59 Dxjvujgo-Nca-7 Patch TD 0.1 mg Q7DAYS DARYA Administration Nitroglycerin 0.4 mg 02/27/20 17:49 02/28/20 12:50 Nitrostat PO 1 tab Q5MIN PRN Administration Chest Pain Sodium Chloride 10 ml 02/27/20 21:00 02/28/20 09:00 Flush - Normal Saline IVF Not Given Q12HR DARYA Sodium Chloride 10 ml 02/27/20 17:49 02/28/20 11:54 Flush - Normal Saline IVF 10 ml PRN PRN Administration Saline Flush - Exam General Appearance: awake alert Eye: anicteric sclera ENT: moist mucosa Neck: supple, symmetric, no thyromegaly, no lymphadenopathy Heart: RRR, no gallops, no rubs, normal peripheral pulses Respiratory: CTAB, no wheezes, no rales, no ronchi Gastrointestinal: soft, non-tender, non-distended, normal bowel sounds Psychiatric: normal affect, normal behavior Hosp A/P (1) Chest pain Code(s): R07.9 - CHEST PAIN, UNSPECIFIED Status: Acute (2) DM2 (diabetes mellitus, type 2) Status: Chronic Qualifiers: (3) Hypertension Code(s): I10 - ESSENTIAL (PRIMARY) HYPERTENSION Status: Chronic Qualifiers: (4) BPH (benign prostatic hyperplasia) Code(s): N40.0 - BENIGN PROSTATIC HYPERPLASIA WITHOUT LOWER URINRY TRACT SYMP Status: Chronic (5) Schizophrenia Code(s): F20.9 - SCHIZOPHRENIA, UNSPECIFIED Status: Chronic - Plan d-dimer elevated, check CTA chest to r/o PE Await stress test Continue Flomax Resume lisinopril, monitor vital signs and titrate antihypertensives as needed. Continue accuchecks and insulin sliding scale.
[2020-02-28] MEDS ORDERED: hydrALAZINE 10 MG TAB PO PRN (16:59)
--- NOTE | 2020-02-28 17:45 | CT ---
CTA Angio Chest W WO Con 02/28/2020 4:05 PM Indication: Left-sided chest pain and elevated d-dimer Technique: Multiple CTA images were obtained of the thorax with IV contrast. 3-D rendering: MIP kyle nstructed images were created and reviewed. Comparison: CT of the chest, abdomen and pelvis dated November 12, 2017 Findings: Pulmonary arteries: No central or segmental pulmonary embolus is evident. Heart and Aorta: There are thoracic aorta and coronary artery calcifications. There is stable mild c ardiomegaly. Mediastinum:Normal appearing. No enlarged lymph nodes. Lungs:The lungs are clear. Pleural space: Clear. Upper Abdomen: No acute abnormality. Osseous Structures: No acute fracture or subluxation demonstrated. Prominent dextroscoliosis of the thoracic spine. There is scattered degenerative and osteoarthritic change present. Stable tiny sclerotic lesion involving the left posterior lateral fourth rib likely likely small bone island. Soft tissues:Mild bilateral male gynecomastia. Other findings:None. Impression: No central or segmental pulmonary embolus.
[2020-02-28 18:35] LABS: Troponin I 0.029 ng/mL (< 0.028)
[2020-02-28] MEDS: Atorvastatin Calcium 40 MG TAB PO SCH (20:28)
[2020-02-28] MEDS ORDERED: Prevnar 13-Val Conj/PF 0.5 ML SYRINGE IM ONE (21:00)
--- NOTE | 2020-02-28 21:58 | CON ---
DATE OF CONSULTATION: 02/28/2020 INDICATION FOR CONSULTATION: A 69-year-old patient with a history of known coronary artery disease, underwent cardiac catheterization in 2008, I believe. At this time, we were asked to see him due to repeat episodes of chest pain, abnormal EKG and slightly abnormal cardiac enzymes. HISTORY OF PRESENT ILLNESS: This very pleasant 69-year-old gentleman who resides in a correction after he has had 2 CVAs, had complained of some chest discomfort apparently and was taken to the emergency room at [place] and was transferred here. His EKG did show sinus rhythm with what appears to be a left ventricular hypertrophy and T-wave changes associated with left ventricle hypertrophy with T-wave inversions in the lateral leads. He had cardiac enzymes, the first set was 0.027, increased up to 0.35 and then decreased again down to 0.028 and a final set just recently was 0.01. He was scheduled to have a stress test today, but apparently there was some concern about EKG changes and the patient did complain of chest pain. He adamantly denies any chest pain to me after I have seen this gentleman, but apparently keeps changing his story. He also had an ablation of atrial flutter in 2012. At the time of the cardiac catheterization in 2008, ejection fraction was normal. He had a 20% proximal stenosis in the left anterior descending artery and 30% stenosis in the diagonal branch. Otherwise, the right coronary and left circumflex were normal. The ablation was successful for flutter in 2012. He has not been followed up in the office as far as I can tell. He had continued to smoke until a couple years ago apparently, but still says he has an occasional cigarette. He also has multiple risk factors of coronary artery disease progression, which includes tobacco abuse, hypertension, dyslipidemia. He also has had some history of schizophrenia. At this time, he said the chest pain started yesterday while he was watching TV and lasted for an hour and a half to an hour and then he said he has had no further chest pain. However, he does tell the staff here that he has been having pain. He also told the hospitalist that he was having some chest discomfort. To me, he denied any chest pain today. Also noticed that his hemoglobin A1c was elevated at 8.8. At this time, he is stable. His EKG does show some T-wave inversions in the lateral leads with 1 aVL as well as V5 and V6 and evidence of left ventricular hypertrophy. He does have a history of left ventricular hypertrophy from the past echocardiogram. PAST MEDICAL HISTORY: Significant for the coronary artery disease and CVAs in the past x2, hypertension, dyslipidemia, history of TIAs, benign prostatic hypertrophy, he has a history of dysphagia, he also has a history of hypokalemia in the past, anxiety, schizophrenia. He has had some right carotid artery stenosis with occlusion most likely suffered from this as the cause of the CVAs and depression. According to the history, he has history of some possible suicide attempt. SOCIAL HISTORY: He still continues to smoke a little bit he says, but he stopped smoking heavily about 2 years ago. He has no history of alcohol use. He drank in the past. He now resides in the correction. FAMILY HISTORY: Noncontributory. REVIEW OF SYSTEMS: He denied to me any chest pain. He denied any GI complaints or complaints or musculoskeletal complaints. He says he is able to walk independently. NEUROLOGIC: He did say that he had the strokes in the past, but according to him, he is able to carry on pretty much what he wants to do. Otherwise review of systems is unremarkable. LABORATORY DATA: As noted the troponin I as noted above. Otherwise, sodium was 141, BUN was 18 with a creatinine of 0.91. Blood sugar was in the 220 range. Hemoglobin A1c was 8.8. Urinalysis showed no significant UTI. He has had 7-10 wbcs noted. Hemoglobin was 14.6, WBC of 9.2, platelet count was 195,000. ALLERGIES: THERE ARE NO KNOWN DRUG ALLERGIES. PHYSICAL EXAMINATION: GENERAL: Reveals a well-developed, well-nourished gentleman. He is in no acute distress. He denies any chest pain. VITAL SIGNS: His blood pressure is 147/67, earlier around noon today, it was 188/92, heart rates in the 70s and shows a normal sinus rhythm, respiratory rate is about 16, O2 saturation is 95% on room air. HEENT: Shows the head to be normocephalic and atraumatic. Carotid pulses, I did not hear any significant bruits. He does have decreased carotid pulses. CHEST: His chest was clear to auscultation. CARDIOVASCULAR: Revealed a regular rate and rhythm. There were no gross murmurs, heaves, thrills, bruits, or rubs. ABDOMEN: Soft and nontender. Positive bowel sounds are present. EXTREMITIES: Showed no clubbing, cyanosis, or edema. Left pedal pulses are present. Right pedal pulses are difficult to palpate. NEUROLOGIC: The patient has had some weakness on the left side, but otherwise no significant abnormalities were noted. SKIN: Warm and dry. IMAGING: His EKG as noted above. Enzymes are noted above. IMPRESSION: 1. Elderly gentleman, 69-year-old gentleman who had complained of some left-sided chest discomfort, was seen in the emergency room. Enzymes have remained essentially negative for myocardial infarction, somewhat indeterminate. He certainly could have had a small type 2 myocardial infarction. Otherwise, he has remained relatively stable. He was sent down for stress testing and then was sent back to the floor due to the EKG changes, which have not changed since 2019. He had been complaining of some chest discomfort, which he adamantly denies to me that he is having any discomfort and his enzymes remain negative. At this time, I would consider to continuing with a stress test to rule out evidence of any indication for ischemia. If he has any evidence of ischemia, then the patient should undergo cardiac catheterization to evaluate his coronary status. As far as his other medical problems which include hypertension, the blood pressure is under relatively good control at times, it was kind of elevated. I will review his medications and see whether or not we need to adjust them. As far as his diabetes, this will be dealt with by the primary care service. His dyslipidemia will be dealt with also by the primary care service. We would continue statin medications, if at all possible. HOME MEDICATIONS: Included: 1. Flomax. 2. Insulin. 3. Apresoline. 4. Aspirin. 5. Atorvastatin. 6. Lisinopril. 7. At this time, he has been placed back on the aspirin. 8. Hydralazine p.r.n. 9. He is on insulin as needed. For this gentleman, we would certainly consider placing him on a beta tam and continuing [place] inhibitors and will await results of stress testing. If there is any abnormalities, then proceed with cardiac catheterization. If he is negative, then we will adjust medications as needed to control the blood pressure. Job ID: [id number]
[2020-02-29 05:11] LABS: Anion Gap 12 mmol/L (10-20); BUN (Urea Nitrogen) 18 mg/dL (8.4-25.7); Calc. Creatinine Clearance 81 mL/min (70-130); Calcium 8.9 mg/dL (7.8-10.44); Carbon Dioxide 27 mmol/L (23-31); Chloride 105 mmol/L (98-107); Estimated GFR-MDRD Greater than 90; Glucose 185 mg/dL (80-115); Sodium 140 mmol/L (136-145)
[2020-02-29] MEDS ORDERED: Insulin Glargine 35 UNITS in Pre-Filled Syringe SC SCH (09:00)
[2020-02-29] MEDS ORDERED: Lisinopril 10 MG TAB PO SCH (09:00)
[2020-02-29] MEDS ORDERED: Tamsulosin HCl 0.4 MG CAP PO SCH (09:00)
[2020-02-29] MEDS ORDERED: ADENOSINE 60 MG/20 ML VIAL ONE (10:45)
--- NOTE | 2020-02-29 11:21 | NM ---
EXAM: CARDIAC SPECT HISTORY: Chest pain, CA, stroke, ablation, hypertension, coronary artery disease, diabetes, atrial fl utter, hypercholesterolemia, smoker, TIA TECHNIQUE: A myocardial perfusion scan was performed using the single isotope 1 day protocol with wolfgang hnetium 99m sestamibi. [10 mCi] was injected intravenously for the rest exam followed by 30 mCi for the stress study. Pharmacologic stress with adenosine was monitored and interpreted by Lana Mills, nurse practitioner FINDINGS: Homogeneous tracer distribution is seen in the myocardial segments on stress and rest image s without fixed or reversible defects. Gated SPECT LVEF: 50% Wall motion exam: Normal IMPRESSION: Normal myocardial perfusion scan
[2020-02-29] MEDS: Aspirin 81 mg Enteric Coated Tablet PO SCH (11:29)
--- NOTE | 2020-02-29 14:36 | PDOC.CPN ---
- Subjective Date: 02/29/20 Time: 14:58 Interval history: The pt seen and examined. No overnight events. No cardiac complaints. - Objective Allergies/Adverse Reactions: Allergies Allergy/AdvReac Type Severity Reaction Status Date / Time No Known Allergies Allergy Verified 10/26/17 15:28 Visit Medications: Current Medications Acetaminophen (Tylenol) 650 mg PO Q4H PRN PRN Reason: Headache/Fever/Mild Pain (1-3) Last Admin: 02/29/20 11:31 Dose: 650 mg Acetaminophen (Tylenol) 650 mg SC Q4H PRN PRN Reason: Headache/Fever/Mild Pain (1-3) Aspirin (Ecotrin) 81 mg PO DAILY [facility] Last Admin: 02/29/20 11:29 Dose: 81 mg Atorvastatin Calcium (Lipitor) 80 mg PO HS [facility] Last Admin: 02/28/20 20:28 Dose: 80 mg Clonidine (Igrlodmy-Feu-9 Patch) 0.1 mg TD Q7DAYS [facility] Last Admin: 02/28/20 08:59 Dose: 0.1 mg Dextrose/Water (Dextrose 50%) 25 gm SLOW IVP PRN PRN PRN Reason: Hypoglycemia Glucagon (Glucagon) 1 mg IM PRN PRN PRN Reason: Hypoglycemia Hydralazine HCl (Apresoline) 10 mg PO Q6H PRN PRN Reason: Hypertension SBP>180 Dextrose/Water (D5w) 1,000 mls @ 0 mls/hr IV .Q0M PRN PRN Reason: Hypoglycemia Insulin Glargine 35 units/ (Miscellaneous Medication) 0.35 mls @ 0 mls/hr SC QAM [facility] Last Admin: 02/29/20 11:28 Dose: 0.35 mls Insulin Human Lispro (Humalog) 0 units SC .MILD SLIDING SCALE PRN PRN Reason: Mild Correctional Scale Insulin Human Lispro (Humalog) 0 units SC .BEDTIME SLIDING SC PRN PRN Reason: Bedtime Correctional Scale Lisinopril (Zestril) 10 mg PO DAILY [facility] Last Admin: 02/29/20 11:29 Dose: 10 mg Nitroglycerin (Nitrostat) 0.4 mg PO Q5MIN PRN PRN Reason: Chest Pain Last Admin: 02/28/20 12:50 Dose: 1 tab Sodium Chloride (Flush - Normal Saline) 10 ml IVF Q12HR [facility] Last Admin: 05/30/20 11:29 Dose: 10 ml Sodium Chloride (Flush - Normal Saline) 10 ml IVF PRN PRN PRN Reason: Saline Flush Last Admin: 02/28/20 11:54 Dose: 10 ml Tamsulosin HCl (Flomax) 0.4 mg PO DAILY [facility] Last Admin: 02/29/20 11:29 Dose: 0.4 mg Vital Signs & Weight: Vital Signs Temp Pulse Resp BP BP BP Pulse Ox 02/29/20 11:29 196/90 H 02/29/20 11:00 98.0 F 80 20 196/90 H 94 L 02/29/20 03:19 166/87 H 02/29/20 03:11 98.8 F 87 18 179/83 H 94 L Admit Weight 165 lb Weight 161 lb 11.2 oz - Physical Exam General: alert & oriented x3 HEENT: mucus membranes moist Neck: supple neck Cardiac: regular rate and rhythm, S1/S2 Lungs: clear to auscultation Neuro: cranial nerve 2-12 intact - Labs Result Diagrams: 02/28/20 04:11 02/29/20 04:21 Troponin/CKMB CK-MB (CK-2) 2.3 ng/mL (0-6.6) 02/27/20 18:57 Troponin I 0.029 ng/mL (< 0.028) H 02/28/20 18:01 - Telemetry Sinus rhythms and dysrhythmias: sinus rhythm - Assessment/Plan Assessment/Plan: 1. Chest pain in adult - stress test today and the result is pending 2. HTN - will start Coreg from today 3. CAD with hx of LHC in 2008 with 20% stenosis in prox LAD, 30% in diag, and normal Lt Cx. - On Lisinopril, ASA 81mg and statin. will start Coreg from today 4. Prox Aflutter with hx of Aflutter RFA in 2012 - remains in SR; on ASA 81mg qd ; will start Coreg from today 5. Insulin dependent DM type 2 6. HLD 7. hx of CVA x2 8. BPH 9. Schizophrenia 10. Ex-smoker, quit in 2017 MAR reviewed * The pt can be d/c home if his Stress test shows normal and his BP is more stable from Cardiac standpoint. * The pt will f/u with Dr Parry office in 2 wks. Pt. seen and eval. by me. I agree with the A/P by the RECONCILIATION ANALYST. The stress test is normal, no ischemia. Chest clear. RRR. He can be d/c'd. ca
[2020-02-29] MEDS ORDERED: Carvedilol 6.25 MG TAB PO SCH ×2 (15:00→21:00)
--- NOTE | 2020-02-29 16:10 | DIS ---
DATE OF ADMISSION: 02/27/2020 DATE OF DISCHARGE: 02/29/2020 PRIMARY CARE PROVIDER: Kenyatta Acuna MD DISCHARGE DIAGNOSES: 1. Chest pain. 2. Chest pain most likely secondary to musculoskeletal etiology. CONDITION: Condition of the patient on the day of discharge: Stable. I assessed Mr. Hernandez on the day of discharge. He denies any chest pain or shortness of breath. Vital signs are stable. S1 and S2 are heard, regular. Lungs are clear to auscultation bilaterally. HOSPITAL COURSE: Mr. Hernandez is a pleasant 69-year-old gentleman, who was admitted to [facility] on February 27, 2020, for chest pain. Please refer to Ms. Guadarrama's history and physical note dated February 27, 2020, for further details. He was seen by Cardiology Service. He was also found to be in hypertensive urgency. He has been started on Coreg 6.25 mg 2 times a day. Nuclear stress test was normal. Left ventricular ejection fraction was 50%. CT angiogram of the chest did not show any evidence of central or segmental pulmonary embolus. The patient has been advised to check his blood pressure and heart rate 3 times a day and show the readings to primary care provider. DISCHARGE MEDICATIONS: No change was made to his pre-admission home medications other than the addition of Coreg 6.25 mg 2 times a day. CONSULTATIONS DURING THIS HOSPITALIZATION: Cardiology, Dr. Dias. ACTIVITY: No restrictions. DIET: Heart healthy. POST-ACUTE CARE FOLLOWUP: With primary care provider in 3 days and with Cardiology, Dr. Parry in 2 weeks. DISCHARGE DESTINATION: Home. Job ID: [id number]
[2020-02-29] MEDS: Atorvastatin Calcium 40 MG TAB PO SCH (20:48)
[2020-02-29 22:58] VITALS: BP 132/74; TEMP 97.8
[2020-03-01] MEDS ORDERED: Carvedilol 6.25 MG TAB PO SCH (08:00)
== END 2020-02-29 23:50 ==
LOC: ERS 16:48 → 2NO 17:22
PROVIDERS: ADMIT Internal Medicine; ATTEND Internal Medicine
DX: R07.9 Chest pain, unspecified (principal); I25.10 Atherosclerotic heart disease of native coronary artery without angina pectoris; I25.2 Old myocardial infarction; I10 Essential (primary) hypertension; E11.9 Type 2 diabetes mellitus without complications; E78.5 Hyperlipidemia, unspecified; F41.9 Anxiety disorder, unspecified; F32.9 Major depressive disorder, single episode, unspecified; F20.9 Schizophrenia, unspecified; D72.829 Elevated white blood cell count, unspecified; N62 Hypertrophy of breast; N40.0 Benign prostatic hyperplasia without lower urinary tract symptoms; Z86.73 Personal history of transient ischemic attack (TIA), and cerebral infarction without residual deficits; Z79.4 Long term (current) use of insulin; Z79.82 Long term (current) use of aspirin; Z79.899 Other long term (current) drug therapy; Z87.891 Personal history of nicotine dependence; Z91.5 Personal history of self-harm
CPT/HCPCS: 71275; 78452; 80048 ×2; 80306; 81001; 82553; 82962 ×2; 83036; 83605; 83735 ×2; 83880; 84443; 84484 ×3; 85025; 85379; 87086; 93005 ×2; 93017; 94760; 96374; 97139; 99285; A9500; G0378 ×4; 36415; 36416; 93010; J0153; J0360; J1815; Q9967

== ENCOUNTER 2020-04-09 14:57 | Observation (INO) | payer MEDICARE, MEDICAID ==
--- NOTE | 2020-04-09 15:31 | RAD ---
RADIOGRAPH CHEST 1 VIEW: DATE: 04/09/2020 HISTORY: 69-year-old male with chest pain COMPARISON: 02/27/2020 FINDINGS: There is no airspace density, pulmonary edema, or pneumothorax. The lateral costophrenic angles are n ot effaced. There is high-grade dextroscoliosis of the mid thoracic spine. Compensatory levoscoliosis of upper thoracic spine. No major interval change. IMPRESSION: 1. No acute pulmonary findings. 2. High-grade dextroscoliosis of mid thoracic spine.
[2020-04-09 15:44] LABS: #Basophils 0.1 thou/uL (0.0-0.2); #Eosinphils 0.3 thou/uL (0.0-0.7); #Lymphocytes 2.3 thou/uL (1.20-3.40); #Monocytes 0.7 thou/uL (0.11-0.59); #Neutrophils 7.5 thou/uL (1.40-6.50); %Basophils 0.7 % (0.0-1.0); %Eosinophils 2.4 % (0.0-10.0); %Lymphocytes 20.9 % (21.0-51.0); %Monocytes 6.5 % (0.0-10.0); %Neutrophils 69.6 % (42.0-75.0); Hemoglobin 14.9 g/dL (14.0-18.0); Mean Corpuscular HGB CONC 32.6 g/dL (32.0-36.0); Mean Corpuscular Hemoglobin 27.1 pg (27.0-31.0); Mean Corpuscular Volume 83.2 fL (78.0-98.0); Mean Platelet Volume 9.2 fL (7.4-10.4); Platelet Count 221 thou/uL (130-400); RBC Distribution Width 13.8 % (11.5-14.5); White Blood Cell (WBC) Count 10.8 thou/uL (4.8-10.8)
[2020-04-09 16:06] LABS: ALT (SGPT) 18 U/L (8-55); AST (SGOT) 16 U/L (5-34); Albumin 3.6 g/dL (3.4-4.8); Alkaline Phosphatase 102 U/L (40-110); Anion Gap 12 mmol/L (10-20); BUN (Urea Nitrogen) 18 mg/dL (8.4-25.7); Bilirubin, Total 0.3 mg/dL (0.2-1.2); Calc. Creatinine Clearance 0 mL/min (70-130); Calcium 8.6 mg/dL (7.8-10.44); Carbon Dioxide 25 mmol/L (23-31); Chloride 108 mmol/L (98-107); Estimated GFR-MDRD Greater than 90; Globulin 3.2 g/dL (2.4-3.5); Glucose 88 mg/dL (80-115); Potassium 4.2 mmol/L (3.5-5.1); Protein, Total 6.8 g/dL (5.8-8.1); Sodium 141 mmol/L (136-145)
[2020-04-09 16:09] LABS: Magnesium 1.9 mg/dL (1.6-2.6); Phosphorus 2.6 mg/dL (2.3-4.7)
[2020-04-09] MEDS ORDERED: Magnesium 2 GM/50 ML BAG (IN WATER) ONE (16:35)
[2020-04-09 19:33] VITALS: BMI 25.7
[2020-04-09] MEDS ORDERED: Acetaminophen 325 MG TAB PO PRN (20:21)
[2020-04-09] MEDS ORDERED: Acetaminophen 650 MG Suppository PR PRN (20:21)
[2020-04-09] MEDS ORDERED: Nitroglycerin 0.4 MG TAB (25 Tab Bottle) PO PRN (20:22)
[2020-04-09] MEDS ORDERED: Lorazepam 2 MG/ML VIAL SLOW IVP PRN (20:34)
[2020-04-09] MEDS ORDERED: HumaLOG 300 UNITS/3 ML VIAL SC PRN ×2 (20:35)
[2020-04-09] MEDS ORDERED: Dextrose 5% in Water 1,000 ML IV PRN (20:35)
[2020-04-09] MEDS ORDERED: Dextrose 50% Abboject 50 ML SYRINGE SLOW IVP PRN (20:35)
[2020-04-09] MEDS: Sodium Chloride 0.9% 1,000 ML IV SCH (21:10)
[2020-04-09] MEDS: Famotidine 20 MG TAB PO SCH (21:10)
--- NOTE | 2020-04-09 22:34 | HP ---
TIME OF ASSESSMENT: 1899. CHIEF COMPLAINT: Left-sided chest pain radiating to the left arm. PRIMARY CARE PHYSICIAN: Dr. Acuna. HISTORY OF PRESENT ILLNESS: Mr. Hernandez is a 69-year-old gentleman, who presents with complaints of left-sided chest pain that have been occurring intermittently since yesterday. He states the pain comes on at any time even while he is resting and lasts 1-2 minutes. He describes a pressure which he rates at 6/10 in severity. He states on occasion, the pain radiates down his left arm. At present, he denies having any discomfort anywhere. He has not noted any associated diaphoresis, shortness of breath, nausea, or vomiting. He states it does not seem to be brought on with exertion, but certainly occurs at times when he exerts himself and at times when he is resting. He reports having an ID in the past and states that the discomfort feels similar to that. He denies undergoing any bypass in the past. He has not had any stents placed. The patient states it has been quite sometime since he has undergone any cardiac workup. Of note, it appears he did undergo an echocardiogram in December 2019 demonstrating an EF of 55% to 60%. He is noted to have a normal size left atrium with severe concentric left ventricular hypertrophy. Impaired relaxation compatible with diastolic dysfunction. Mild mitral regurgitation present. No thrombus in the cardiac chambers present at that time. The patient also underwent a stress test on February 29, 2020, which showed a normal myocardial perfusion scan. He had an LVEF of 50%. He had been discharged that same day after being cleared by Cardiology and had been started on Coreg 6.25 mg twice daily. The plan was for him to follow up with his director of special services, Dr. Parry. ED COURSE: In the emergency department, the patient underwent an EKG demonstrating a normal sinus rhythm without ST elevations or T-wave abnormalities. He was brought in from senior care and apparently was given 325 mg of aspirin before being brought to the emergency department. Laboratory studies done were unremarkable. The patient was given magnesium. He had a chest x-ray done which demonstrated no acute pulmonary findings. There was a high-grade dextroscoliosis of the mid thoracic spine. PAST MEDICAL HISTORY: 1. Coronary artery disease with history of LHC in 2008 with 20% stenosis in proximal LAD, 30% in diagonal, and normal left circumflex. 2. Paroxysmal aflutter with history of aflutter RFA in 2012. He has been in sinus rhythm since then. 3. Type 2 diabetes mellitus, insulin dependent. 4. Hyperlipidemia. 5. History of CVA x2. 6. BPH. 7. Schizophrenia. 8. Hypertension. 9. Heavy alcohol consumption. 10. Scoliosis. 11. Anxiety. 12. Occlusion and stenosis of right carotid artery. 13. Depression with history of previous suicide attempt as per senior care records. SOCIAL HISTORY: The patient smokes half a pack per day. He reports drinking up to 6 beers a day. Denies any illicit drug use. ALLERGIES: NO KNOWN DRUG ALLERGIES. CURRENT MEDICATIONS: 1. Lisinopril. 2. Aspirin. 3. Lantus. 4. Tamsulosin. 5. Atorvastatin. 6. Humalog. 7. Hydralazine. 8. Duloxetine. 9. Carvedilol. PHYSICAL EXAMINATION: GENERAL: The patient appears well developed, well nourished, and is in no acute distress. He is resting in bed comfortably. VITAL SIGNS: Temperature 97.8, pulse 70, respirations 18, O2 saturation 97% on room air, blood pressure 167/101. HEENT: Normocephalic and atraumatic. Pupils are equal, round, reactive to light. Sclerae with no icterus. Oropharynx is clear. NECK: Supple. LUNGS: Clear to auscultation bilaterally without any wheezes, rales, or rhonchi. CARDIAC: Regular rate and rhythm. ABDOMEN: Soft. Slightly distended. No guarding or rigidity. No renal angle tenderness. EXTREMITIES: No lower leg swelling or edema. NEUROLOGIC: Alert and oriented x3. Flat affect. INVESTIGATIONS: As mentioned above in HPI. IMPRESSION AND PLAN: Mr. Hernandez is a 69-year-old gentleman, presenting with intermittent chest pain for the last 24 hours, who is being admitted for management of the followin. Acute coronary syndrome rule out. We will continue to trend troponins. Initial troponin done at 1531 was 0.018. Second troponin done at 2009 was 0.026. The patient with known history of CAD. Known to Dr. Parry. He has had a recent echo in December 2019 and stress test in January 2020. We will go ahead and place a consultation with Dr. Parry of Cardiology and keep the patient n.p.o. At present, he is pain free. 2. Hypertension. Monitor blood pressure and resume home medications once verified. 3. Type 2 diabetes mellitus, insulin dependent. Insulin sliding scale initiated. We will reconcile home medications once verified. 4. Hyperlipidemia. Reconcile home medications once verified. 5. Psych history, includes schizophrenia, anxiety, depression. The patient seems to be stable at present and denies any feelings of severe depression at present or suicidal ideations. 6. Heavy alcohol use. He drinks 4-6 beers a day. Denies any history of withdrawal seizures. We will initiate [place] protocol. 7. Gastrointestinal prophylaxis with famotidine. 8. Deep venous thrombosis prophylaxis with mechanical SCDs. The patient is ambulatory. 9. Code status full. The patient states no medical power of insurance attorney in place. Case discussed with attending, who agrees with plan of care as described above. Job ID: [id number]
[2020-04-10 01:14] LABS: Amphetamine Not Detected (NotDetected); Barbiturates Screen Not Detected (NotDetected); Benzodiazepine Screen Not Detected (NotDetected); Cocaine Metabolite Screen Not Detected (NotDetected); Medtox Control Line Valid? VALID (VALID); Medtox Reader # READER 1; Methadone Not Detected (NotDetected); Methamphetamine Not Detected (NotDetected); Opiate Screen Detected (NotDetected); Oxycodone Screen Not Detected (NotDetected); Phencyclidine (PCP) Not Detected (NotDetected); THC/Cannabinoid Screen Not Detected (NotDetected); Tricyclic Screen Not Detected (NotDetected)
[2020-04-10 01:59] LABS: #Basophils 0.1 thou/uL (0.0-0.2); #Eosinphils 0.3 thou/uL (0.0-0.7); #Lymphocytes 2.6 thou/uL (1.20-3.40); #Monocytes 0.7 thou/uL (0.11-0.59); #Neutrophils 4.2 thou/uL (1.40-6.50); %Basophils 1.3 % (0.0-1.0); %Eosinophils 3.7 % (0.0-10.0); %Lymphocytes 33.2 % (21.0-51.0); %Monocytes 8.2 % (0.0-10.0); %Neutrophils 53.6 % (42.0-75.0); Hemoglobin 13.5 g/dL (14.0-18.0); Mean Corpuscular HGB CONC 31.5 g/dL (32.0-36.0); Mean Corpuscular Hemoglobin 26.2 pg (27.0-31.0); Mean Corpuscular Volume 83.2 fL (78.0-98.0); Mean Platelet Volume 9.2 fL (7.4-10.4); Platelet Count 188 thou/uL (130-400); RBC Distribution Width 13.8 % (11.5-14.5); Red Blood Cell (RBC) Count 5.16 mill/uL (4.70-6.10); White Blood Cell (WBC) Count 7.9 thou/uL (4.8-10.8)
[2020-04-10 02:27] LABS: Anion Gap 10 mmol/L (10-20); BUN (Urea Nitrogen) 20 mg/dL (8.4-25.7); Calc. Creatinine Clearance 90 mL/min (70-130); Calcium 7.9 mg/dL (7.8-10.44); Carbon Dioxide 25 mmol/L (23-31); Cardiac Risk 3.1 (Less than 4.5); Chloride 108 mmol/L (98-107); Cholesterol 107 mg/dl (< 200 Desired); Estimated GFR-MDRD Greater than 90; Glucose 143 mg/dL (80-115); HDL Cholesterol 35 mg/dL (>60 Neg Risk); LDL Cholesterol, Calculated 62 mg/dL; Magnesium 2.1 mg/dL (1.6-2.6); Potassium 3.7 mmol/L (3.5-5.1); Sodium 139 mmol/L (136-145); Triglycerides 52 mg/dL (Less than 150)
[2020-04-10] MEDS ORDERED: Aspirin 325 mg Enteric Coated Tablet PO SCH (09:00)
[2020-04-10] MEDS ORDERED: Carvedilol 6.25 MG TAB PO SCH ×2 (12:15→17:00)
[2020-04-10] MEDS: Famotidine 20 MG TAB PO SCH (12:24)
--- NOTE | 2020-04-10 14:53 | CON ---
DATE OF CONSULTATION: INDICATIONS FOR CONSULTATION: A 69-year-old gentleman with chest pain and a recent negative stress test. HISTORY OF PRESENT ILLNESS: This is a very unfortunate 69-year-old gentleman who resides in the half-way after he has had several strokes in the past. I recently saw this patient back in January, also complaining of chest pain. At that time, he underwent stress testing, was found to have no evidence of underlying ischemia. He also had undergone a cardiac catheterization in the past and had some disease in the left anterior descending artery. This was several years ago, but the stress test still remains negative. He also had negative enzymes on this admission. EKG is unremarkable for any evidence of ischemia. He did have some occasional PVCs, but he has not been restarted on his medications. Prior to admission, he had been on a beta-tam that was not reinstated. At the time of the cardiac catheterization in 2008, he had a 20% proximal stenosis in the left anterior descending artery and 30% stenosis in the diagonal branch, but no other flow-limiting disease was noted. He has undergone ablation of atrial flutter in 2012. He has had no further episodes of significant arrhythmias that I am aware of except for the PVCs, which may be due to not being on his beta-tam. We certainly could increase the dose of the beta-tam if the blood pressure is not under good control, will also help probably some of the PVCs. He does have a history of schizophrenia and is a very poor historian. He does have multiple risk factors for coronary artery disease, which include tobacco abuse, hypertension, and dyslipidemia. When I questioned him today about having chest pain, he said he did not have any chest pain today or yesterday. He said it was the day before yesterday and he describes as being across the upper anterior chest. When I asked him about radiation, he denied it; however, the other admission from the physician printer floor covering assistant who did the H and P on the patient said that the pain was in the chest and radiates to the left arm. At this time, again I do not see any indication that we need to proceed with any further workup for this gentleman at this time since his stress test in January was unremarkable and EKG does not show any significant changes except for occasional PVCs and sometimes occasional with ventricular trigeminy. He has not had any further chest pain and enzymes are negative. His EKG has remained unchanged since the last several years. He does have T-wave inversions in the lateral leads, which may be due to hypertension, but this is an unchanged EKG. PAST MEDICAL HISTORY: Significant for: 1. Coronary artery disease. 2. He has had CVAs x2. 3. Dyslipidemia. 4. Hypertension. 5. He has had some TIAs. 6. He has benign prostatic hypertrophy. 7. He has a history of hypokalemia and dysphagia. 8. He has a history of schizophrenia and anxiety. 9. He has had some right carotid artery stenosis with occlusion and suffered a CVA in the past. He also continues to have a bruit on the left side. SOCIAL HISTORY: He continues to smoke a little bit, but said he smoked heavily until about 2 years ago. He has no history of alcohol use. He resides in the half-way. FAMILY HISTORY: Noncontributory. REVIEW OF SYSTEMS: He denied any chest pain at this time. He said the pain only occurred the day before yesterday. He says that he is able to walk. He resides in a half-way. Otherwise, he had no complaints on the review of systems. This was a 12-point review of systems. ALLERGIES: NONE. MEDICATIONS: Prior to admission, should have included: 1. Coreg 6.25 mg one b.i.d. 2. Lisinopril 10 mg a day. 3. Lipitor 40 mg tablet, he takes 80 mg q.p.m. 4. Aspirin 81 mg a day. 5. Hydralazine 10 mg q.6 h. p.r.n. for elevated blood pressure. 6. He is also on insulin. 7. Also tamsulosin, Flomax 0.4 mg capsules once a day. PHYSICAL EXAMINATION: GENERAL: A middle-aged gentleman. He is somewhat confused at times. He is a very poor historian, but he denied any significant complaints and appears to be alert and understands that he is in the hospital. VITAL SIGNS: His blood pressure is elevated today earlier 4 o'clock this morning, it was 143/92. At this time at 8 o'clock this morning, it was 169/105. He is afebrile. Heart rate is 80 and shows a sinus rhythm with occasional PVCs. Respiratory rate is 14. O2 saturation is 100%. HEENT: Head is normocephalic and atraumatic. NECK: Carotid pulses are present. He does have a left carotid bruit present. CARDIOVASCULAR: Regular rate and rhythm with occasional ectopy. There are no gross murmurs noted. CHEST: Clear to auscultation without any rales, rhonchi, or wheezing. ABDOMEN: Soft and nontender. Positive bowel sounds are present. EXTREMITIES: No clubbing, cyanosis, or edema. Pedal pulses are difficult to palpate, but popliteal pulses are present. SKIN: Warm and dry. NEUROLOGIC: The patient does have a somewhat unusual affect, but otherwise did not see any gross focal problems at this time. He does have some weakness noted on the right side. Otherwise, there were no significant abnormalities noted on the examination as noted above. DIAGNOSTIC STUDIES: EKG is noted as above. Cardiac enzymes are negative. His other laboratory data shows a sodium of 139, potassium is 3.7, chloride was 108, BUN was 20 with a creatinine of 0.84, and blood sugar was 143. His WBC was 7.9, hemoglobin 13.5, hematocrit 42.9, and platelet count was 188,000. IMPRESSION: 1. Elderly gentleman who has schizophrenia and also has had a history of cerebrovascular accidents in the past, who resides in the half-way, who complains of some chest pain the day before yesterday. According to him, it may have been yesterday. He was given nitroglycerin. He said that did help somewhat; however, I am uncertain as to whether or not this is true chest pain. He did have a stress test previously, which showed no evidence of ischemia, and I believe he has had a cardiac catheterization several years ago also, which showed some disease in the left anterior descending artery and diagonal branch. At this time, the EKG did not show any acute changes and there was no change in his EKG over the last several years. He had a negative stress test in January. I do not think there is any indication that we need to proceed with further evaluation at this time in this patient. 2. History of schizophrenia, which could be dealt with by the primary care service. 3. Hypertension. The patient was not restarted on his medications prior to admission. He will need to restart his medications including the beta-tam to help with hypertension. 4. Premature ventricular contractions. Should he continue to have premature ventricular contractions or trigeminy, they were seemed to be aggravating him and this actually may be what he was feeling with the PVCs. Certainly, we will need to resume his beta-tam and increase the dose as tolerated, which may suppress the premature ventricular contractions. 5. History of hyperlipidemia. We will need to continue his present medications also. He had been on Lipitor in the past. We will need to continue that medication. 6. Diabetes. This will be dealt with by the primary care service, but he will need to be continued on his insulin. At this time, I have no further recommendations unless he develops more PVCs or has any type of nonsustained ventricular tachycardia, then he may be a candidate to be seen by the director medical safety, but most likely this can be done as an outpatient since the patient appears to be stable at this time. He can be returned to the half-way from my perspective as long as the blood pressure is brought back under reasonable control, but would certainly recommend that he be resumed back on his medications in the form of the lisinopril as well as the carvedilol. Job ID: [id number]
[2020-04-10] MEDS: Sodium Chloride 0.9% 1,000 ML IV SCH (15:32)
[2020-04-10 15:37] VITALS: TEMP 98.6
[2020-04-10 17:03] VITALS: BP 156/80
--- NOTE | 2020-04-11 07:26 | DIS ---
DATE OF ADMISSION: 04/09/2020 DATE OF DISCHARGE: 04/10/2020 DISCHARGE DISPOSITION: [facility]. DISCHARGE PRIMARY DIAGNOSIS: Chest pain, which is noncardiac. SECONDARY DISCHARGE DIAGNOSES: Diabetes mellitus type 2, history of cerebrovascular accident, schizoaffective disorder, hypertension, tobacco abuse. PROCEDURES DONE DURING HOSPITALIZATION: Chest x-ray done showed no acute pulmonary findings. There was high-grade dextroscoliosis of mid thoracic spine. H and H of 13 and 42, platelet count 188, MCV is 83. BUN 20, creatinine 0.8. Total cholesterol 107, triglycerides 52, LDL 62, HDL 35. Troponin x3 negative. Albumin 3.6. Urine tox screen was positive for opioids, likely iatrogenic. DISCHARGE MEDICATIONS: 1. Hydralazine p.r.n. 2. NovoLog sliding scale a.c. and at bedtime. 3. Lantus 35 units subcutaneous q.a.m. 4. Aspirin 81 mg daily. 5. Atorvastatin 80 mg p.o. at bedtime. 6. Coreg 6.25 mg twice daily. 7. Lisinopril 10 mg daily. 8. Flomax 0.4 mg p.o. daily. ALLERGIES: NO KNOWN DRUG ALLERGIES. DISCHARGE PLAN: The patient to follow up with his primary care physician at the [facility], Dr. Acuna in 1 week. INPATIENT CONSULT: Dr. Dias for Cardiology. BRIEF COURSE DURING HOSPITALIZATION: The patient initially was sent over from [facility] for complaints of chest pain, which was left-sided and radiating to left arm. Please note, the patient is not a very good historian. He apparently got complete relief with sublingual nitroglycerin. The patient has had echo done in December 2019 which showed EF of 55% to 60%. He has had a stress test done on February 29, 2020, which showed normal myocardial perfusion scan. Three sets of troponin were negative. He remained asymptomatic during his stay here. He was also evaluated by Dr. Dias. In view of the patient's EKG/telemetry not revealing any new acute ST-T wave changes with normal 3 sets of troponin, the patient is being discharged back to [facility]. He is hemodynamically stable and will be shortly discharged. He is cleared for discharge by Dr. Dias. He needs to follow up with Dr. Parry, his primary sql data architect in 2 weeks. Please note I have seen and examined the patient on the day of discharge. Job ID: [id number] MTDD
== END 2020-04-10 19:40 | disposition home or self-care (01) ==
LOC: ERS 14:57 → 2SE 16:47
PROVIDERS: ADMIT Internal Medicine; ATTEND Internal Medicine
DX: R07.89 Other chest pain (principal); I25.2 Old myocardial infarction; E11.9 Type 2 diabetes mellitus without complications; F25.9 Schizoaffective disorder, unspecified; I10 Essential (primary) hypertension; F17.210 Nicotine dependence, cigarettes, uncomplicated; I25.10 Atherosclerotic heart disease of native coronary artery without angina pectoris; E78.5 Hyperlipidemia, unspecified; N40.0 Benign prostatic hyperplasia without lower urinary tract symptoms; M41.84 Other forms of scoliosis, thoracic region; F41.9 Anxiety disorder, unspecified; I65.21 Occlusion and stenosis of right carotid artery; F32.9 Major depressive disorder, single episode, unspecified; I49.3 Ventricular premature depolarization; Z86.73 Personal history of transient ischemic attack (TIA), and cerebral infarction without residual deficits; Z91.5 Personal history of self-harm; Z79.4 Long term (current) use of insulin; Z79.82 Long term (current) use of aspirin; Z79.899 Other long term (current) drug therapy
CPT/HCPCS: 36415; 36416; 71045; 80048; 80053; 80061; 80306; 83690; 83735; 84100; 84443; 84484; 85025; 93005; 94760; 96361; 96365; G0378; J3475

== ENCOUNTER 2020-06-01 14:05 | Inpatient (IN) | payer MEDICARE, MEDICAID, OTHER ==
[2020-06-01 14:54] LABS: #Lymphocytes 1.2 thou/uL (1.20-3.40); #Monocytes 0.6 thou/uL (0.11-0.59); #Neutrophils 3.6 thou/uL (1.40-6.50); %Basophils 0.6 % (0.0-1.0); %Eosinophils 0.6 % (0.0-10.0); %Lymphocytes 21.3 % (21.0-51.0); %Monocytes 11.2 % (0.0-10.0); %Neutrophils 66.3 % (42.0-75.0); Hemoglobin 14.9 g/dL (14.0-18.0); Mean Corpuscular HGB CONC 31.6 g/dL (32.0-36.0); Mean Corpuscular Hemoglobin 26.1 pg (27.0-31.0); Mean Corpuscular Volume 82.7 fL (78.0-98.0); Mean Platelet Volume 9.7 fL (7.4-10.4); Platelet Count 204 thou/uL (130-400); Red Blood Cell (RBC) Count 5.72 mill/uL (4.70-6.10); White Blood Cell (WBC) Count 5.4 thou/uL (4.8-10.8)
--- NOTE | 2020-06-01 15:03 | RAD ---
RADIOGRAPH CHEST 1 VIEW: DATE: 06/01/2020 TIME: 2:43 PM HISTORY: 69-year-old male with cough COMPARISON: 04/09/2020 FINDINGS: Questionable new finding of focal left lower lobe 5 x 3.5 cm irregularly shaped retrocardiac opacity. The rest of the visualized lung baeza are clear. No pneumothorax. IMPRESSION: 1) questionable left lower lobe infiltrate versus mass. A lateral view would be useful. 2) S-shaped scoliosis.
[2020-06-01 15:17] LABS: ALT (SGPT) 21 U/L (8-55); AST (SGOT) 28 U/L (5-34); Albumin 3.5 g/dL (3.4-4.8); Alkaline Phosphatase 83 U/L (40-110); Anion Gap 14 mmol/L (10-20); BUN (Urea Nitrogen) 38 mg/dL (8.4-25.7); Bilirubin, Total 0.3 mg/dL (0.2-1.2); CK (CPK) 211 U/L (30-200); Calc. Creatinine Clearance 0 mL/min (70-130); Calcium 9.1 mg/dL (7.8-10.44); Carbon Dioxide 23 mmol/L (23-31); Chloride 105 mmol/L (98-107); Estimated GFR-MDRD 69; Globulin 3.5 g/dL (2.4-3.5); Glucose 269 mg/dL (80-115); Potassium 4.3 mmol/L (3.5-5.1); Sodium 138 mmol/L (136-145)
[2020-06-01 15:45] LABS: Bilirubin Negative (Negative); Blood, Urine Large (Negative); Glucose, Urine (Dipstick) Negative (Negative); Ketone, Urine Trace mg/dL (Negative); Leukocyte Negative (Negative); Nitrite Negative (Negative); Protein, Urine (Dipstick) 100 mg/dL (Neg-Trace); pH, Urine 5.5 (5.0-9.0)
[2020-06-01 15:46] LABS: Clarity Hazy (Clear); Specific Gravity, Urine 1.027 (1.002-1.036)
[2020-06-01 15:51] LABS: Bacteria/HPF 1+ HPF (None Seen); Mucous/LPF Rare LPF (<2+); Sperm/HPF 1+ HPF (None Seen)
[2020-06-01] MEDS ORDERED: Cefepime 2 GM VIAL ONE (16:07)
[2020-06-01] MEDS ORDERED: Sodium Chloride 0.9% 100 ML ONE (16:07)
--- NOTE | 2020-06-01 16:08 | CT ---
CT HEAD WITHOUT IV CONTRAST COMPARISON: 11/12/2017 HISTORY: Altered mental status. Covid positive. TECHNIQUE: Axial CT imaging at 5 mm intervals from vertex through skull base without contrast FINDINGS: There is decreased attenuation in the periventricular white matter which is nonspecific but likely re flective of chronic small vessel ischemic changes. In addition, there are areas of encephalomalacia again seen in each cerebral hemisphere with largest areas in the region of the right temporal occipit al lobe and bifrontal lobes similar to the prior study and likely sequela of prior infarctions. Low-attenuation areas are seen in each basal ganglia likely reflective of remote lacunar infarctions. Small remote infarction right cerebellar hemisphere is again seen. There is mild cerebral volume loss. Exit vacuo dilatation occipital and temporal horn right lateral ventricle are again seen. There is no evidence of an acute cortical infarction, hemorrhage, mass effect, or midline shift. Mucous retention cyst is present in the right maxillary antrum. Osseous structures appear intact. IMPRESSION: 1. No acute intracranial abnormality demonstrated. 2. Stable chronic changes.
[2020-06-01] MEDS ORDERED: Azithromycin 500 MG VIAL ONE (16:50)
[2020-06-01] MEDS ORDERED: Acetaminophen 325 MG TAB PO PRN (18:33)
--- NOTE | 2020-06-01 18:48 | PDOC.HHP ---
Hospitalist HPI - History of Present Illness Hypoxia with AMS History of Present Illness: This is a 69-year-old male patient with a history of nephropathies, atrial flutter status post ablation and recently diagnosed if COVID was transferred from [facility] on account of hypoxia and altered mental status. Patient is confused and unable to provide historymost of the history was taken from charts. [facility] notified [facility] upon noticing his hypoxia and altered mental status. En route to the ED he received about 3 L with improvement in his saturation. At presentation however he was saturating at 100% on room air. At presentation his chest x-ray was concerning for possible left lower lobe pneumonia. A CT scan of his head revealed no acute intracranial events. He was started on cefepime and azithromycin for pneumonia. Hospitalist team was consulted to admit. 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 every 6 as needed Ascorbic acid 500 mg twice daily Aspirin 325 mg daily Vitamin D3 50 mcg p.o. daily Duloxetine 30 mg daily Humalog Glargine 35 units subcu every morning Lisinopril 20 mg daily Metformin 500 mg twice daily Zinc 50 mg daily Atorvastatin 80 mg daily Coreg 6.25 mg twice daily HCTZ 12.5 mg daily Tamsulosin 0.4 mg daily - Past Surgical History Other Surgical History: Nephrolithiasis with stenting. - Social History Other Social History: [facility] however unable to obtain further information given his altered mental status - Exam General Appearance: ill appearing Eye: PERRL, anicteric sclera Neck: no JVD, no lymphadenopathy Heart: RRR, no murmur, no gallops, no rubs Respiratory: no wheezes, no rales, no ronchi Gastrointestinal: soft, non-tender, non-distended, normal bowel sounds Extremities: no cyanosis, no clubbing Neurological: cranial nerve grossly intact Neurological - other findings: Oriented to person but not place and time. Hospitalist Results - Labs Result Diagrams: 06/04/20 10:10 06/04/20 17:06 Lab results: WBC 5.4 thou/uL (4.8-10.8) 06/01/20 14:43 Hgb 14.9 g/dL (14.0-18.0) 06/01/20 14:43 Hct 47.3 % (42.0-52.0) 06/01/20 14:43 MCV 82.7 fL (78.0-98.0) 06/01/20 14:43 Plt Count 204 thou/uL (130-400) 06/01/20 14:43 Neutrophils % 66.3 % (42.0-75.0) 06/01/20 14:43 Sodium 138 mmol/L (136-145) 06/01/20 14:42 Potassium 4.3 mmol/L (3.5-5.1) 06/01/20 14:42 Chloride 105 mmol/L (98-107) 06/01/20 14:42 Carbon Dioxide 23 mmol/L (23-31) 06/01/20 14:42 BUN 38 mg/dL (8.4-25.7) H 06/01/20 14:42 Creatinine 1.26 mg/dL (0.7-1.3) 06/01/20 14:42 Glucose 269 mg/dL (80-115) H 06/01/20 14:42 Lactic Acid 1.8 mmol/L (0.5-2.2) 06/01/20 14:42 Calcium 9.1 mg/dL (7.8-10.44) 06/01/20 14:42 Total Bilirubin 0.3 mg/dL (0.2-1.2) 06/01/20 14:42 AST 28 U/L (5-34) 06/01/20 14:42 ALT 21 U/L (8-55) 06/01/20 14:42 Alkaline Phosphatase 83 U/L (40-110) 06/01/20 14:42 Creatine Kinase 211 U/L (30-200) H 06/01/20 14:42 Troponin I 0.024 ng/mL (< 0.028) 06/01/20 14:42 Serum Total Protein 7.0 g/dL (5.8-8.1) 06/01/20 14:42 Albumin 3.5 g/dL (3.4-4.8) 06/01/20 14:42 Urine Ketones Trace mg/dL (Negative) A 06/01/20 15:30 Urine Blood Large (Negative) A 06/01/20 15:30 Urine Nitrite Negative (Negative) 06/01/20 15:30 Ur Leukocyte Esterase Negative (Negative) 06/01/20 15:30 Urine RBC 11-20 HPF (0-3) A 06/01/20 15:30 Urine WBC 4-6 HPF (0-3) A 06/01/20 15:30 Ur Squamous Epith Cells 7-10 HPF (0-3) A 06/01/20 15:30 Urine Bacteria 1+ HPF (None Seen) A 06/01/20 15:30 Hospitalist H&P A/P - Plan Plan: 69-year-old male patient recently diagnosed of COVID [facility] on account of hypoxia and altered mental status. Currently we will admit and manage for pneumonia and COVID. Acute hypoxic respiratory failure Likely secondary to COVID or community-acquired pneumonia We will admit and treat underlying conditions. Oxygen as needed. Pneumonia In the setting of COVID Started on cefepime and azithromycinwe will continue We will consult ID for further COVID management. Contact precautions Acute encephalopathy Unclear etiology however could be related to sepsis Not clear what his baseline actually is at the moment. We will monitor on admission Coronary disease We will continue on aspirin and statins
[2020-06-02] MEDS: Cefepime 2 GM in Sodium Chloride 0.9% 100 ML IVPB SCH ×2 (05:09→16:09)
[2020-06-02 05:34] LABS: #Lymphocytes 1.4 thou/uL (1.20-3.40); #Monocytes 0.7 thou/uL (0.11-0.59); #Neutrophils 4.9 thou/uL (1.40-6.50); %Basophils 0.3 % (0.0-1.0); %Eosinophils 0.2 % (0.0-10.0); %Lymphocytes 19.6 % (21.0-51.0); %Monocytes 9.8 % (0.0-10.0); %Neutrophils 70.1 % (42.0-75.0); Hemoglobin 14.5 g/dL (14.0-18.0); Mean Corpuscular HGB CONC 30.9 g/dL (32.0-36.0); Mean Corpuscular Hemoglobin 25.4 pg (27.0-31.0); Mean Corpuscular Volume 82.2 fL (78.0-98.0); Mean Platelet Volume 9.3 fL (7.4-10.4); Platelet Count 201 thou/uL (130-400); RBC Distribution Width 13.9 % (11.5-14.5); Red Blood Cell (RBC) Count 5.69 mill/uL (4.70-6.10); White Blood Cell (WBC) Count 6.9 thou/uL (4.8-10.8)
[2020-06-02 05:52] LABS: ALT (SGPT) 21 U/L (8-55); AST (SGOT) 26 U/L (5-34); Albumin 3.5 g/dL (3.4-4.8); Alkaline Phosphatase 78 U/L (40-110); Anion Gap 15 mmol/L (10-20); BUN (Urea Nitrogen) 31 mg/dL (8.4-25.7); Bilirubin, Total 0.4 mg/dL (0.2-1.2); Calc. Creatinine Clearance 88 mL/min (70-130); Calcium 8.6 mg/dL (7.8-10.44); Carbon Dioxide 23 mmol/L (23-31); Chloride 109 mmol/L (98-107); Estimated GFR-MDRD Greater than 90; Globulin 3.3 g/dL (2.4-3.5); Glucose 80 mg/dL (80-115); Potassium 4.2 mmol/L (3.5-5.1); Protein, Total 6.8 g/dL (5.8-8.1); Sodium 143 mmol/L (136-145)
[2020-06-02] MEDS: Enoxaparin Sodium 40 MG/0.4 ML SYRINGE SC SCH (09:13)
[2020-06-02] MEDS: Sodium Chloride 0.9% 1,000 ML IV SCH ×3 (09:13→21:48)
[2020-06-02] MEDS ORDERED: hydrALAZINE 20 MG/ML VIAL SLOW IVP PRN (16:33)
[2020-06-02] MEDS ORDERED: Azithromycin 500 MG in Sodium Chloride 0.9% 250 ML 250 ML IVPB SCH (18:00)
[2020-06-02] MEDS: hydrALAZINE 20 MG/ML VIAL SLOW IVP PRN (18:01)
--- NOTE | 2020-06-02 19:56 | PDOC.HOSPP ---
- Subjective Encounter Date: 06/02/20 Encounter Time: 16:00 Subjective: Patient was seen and examined in bed. He denied any fever, headache or shortness of breath or cough. - Objective Vital Signs & Weight: Vital Signs (12 hours) Temp Pulse Resp BP Pulse Ox 06/02/20 18:01 67 06/02/20 18:00 205/92 H 06/02/20 16:25 98.2 F 67 18 200/98 H 98 06/02/20 09:55 98 06/02/20 09:00 99.0 F 86 18 179/85 H 98 Weight Weight 147 lb 7.828 oz I&O: 06/01/20 06/02/20 06/03/20 06:59 06:59 06:59 Intake Total 150 1600 Balance 150 1600 Result Diagrams: 06/04/20 10:10 06/04/20 17:06 Additional Labs: Accuchecks 06/02/20 06/02/20 06/02/20 16:21 12:46 05:20 POC Glucose 75 80 72 Hospitalist ROS - Review of Systems Constitutional: denies: fever, chills, weakness Respiratory: denies: cough, shortness of breath, SOB with excertion Cardiovascular: denies: chest pain, palpitations, orthopnea, paroxysmal noc. dyspnea Gastrointestinal: denies: nausea, vomiting, abdominal pain, diarrhea - Medication Medications: Active Medications Generic Name Dose Route Start Last Admin Trade Name Freq PRN Reason Stop Dose Admin Enoxaparin Sodium 40 mg 06/02/20 09:00 06/02/20 09:13 Lovenox SC 40 mg 0900 DARYA Administration Hydralazine HCl 10 mg 06/02/20 17:47 06/02/20 18:01 Apresoline SLOW IVP 10 mg Q4H PRN Administration SBP Greater Than 170 Sodium Chloride 1,000 mls @ 100 mls/hr 06/02/20 07:30 06/02/20 16:30 Normal Saline 0.9% IV Not Given .Q10H DARYA - Exam General - other findings: Patient in bed. No acute distress Eye: negative: PERRL, anicteric sclera Neck: negative: no JVD, no lymphadenopathy Heart: negative: RRR, no murmur, normal peripheral pulses Respiratory: negative: no wheezes, no ronchi, no tachypnea Gastrointestinal: negative: soft, non-distended, normal bowel sounds Extremities: negative: no cyanosis, no edema Neurological: negative: cranial nerve grossly intact Psychiatric - other findings: Oriented to person but not place and time Hosp A/P - Plan 69-year-old male patient admitted on account of possible COVID pneumonia Acute hypoxic respiratory failure At presentation currently resolved. We will continue monitoring. Pneumonia With concerns for COVID infection. Initially started on cefepime and azithromycin ID consulted to help manage antibiotics and coverage. COVID infection ID consultedappreciate input. Acute encephalopathy Improving We will continue monitoring. Coronary disease Resume aspirin and statin Diabetes mellitus With mild sliding scale VTE prophylaxisLovenox
[2020-06-02] MEDS ORDERED: Acetaminophen 325 MG TAB PO PRN (20:01)
[2020-06-02] MEDS ORDERED: Dextrose 5% in Water 1,000 ML IV PRN (20:05)
[2020-06-02] MEDS ORDERED: Dextrose 50% Abboject 50 ML SYRINGE SLOW IVP PRN (20:05)
--- NOTE | 2020-06-02 20:58 | CON ---
DATE OF CONSULTATION: 06/02/2020 REASON FOR CONSULTATION: COVID pneumonia. HISTORY OF PRESENT ILLNESS: A 69-year-old patient with history of vascular dementia, type 2 diabetes, hypertension, and coronary artery disease, who is a resident at [facility] and was brought in because of recently positive coronavirus test about 3 days before admission associated with lethargy and weakness. On arrival, the patient was alert, oriented to self, he could not give any proper history. He was satting 88% on room air and then went up to 100% with 3 L nasal cannula. Currently, Mr. Hernandez is in the fourth floor. He appears in no distress. He is not receiving oxygen supplementation at the moment. [facility] and apparently he started having diarrhea since May 28. Apparently, they had tested everybody twice in the [facility]. It is not clear if they tested only the patients who were symptomatic or just all the staff and the patients, but the nurse could not tell me if the patient had tested negative before this May 29 positive COVID PCR. PAST MEDICAL HISTORY: Includes atrial flutter with ablation, multiple CVAs with vascular dementia, hypertension, BPH, episodes of pyelonephritis associated with nephrolithiasis and obstruction, requiring intervention and lithotripsy with stenting. SOCIAL HISTORY: Former smoker. Lives in a [facility]. ALLERGIES: NONE. CURRENT MEDICATIONS: 1. Azithromycin. 2. Cefepime. 3. Enoxaparin. 4. Sodium chloride. HOME MEDICATIONS: 1. Zinc. 2. Ascorbic acid. 3. Metformin. 4. Lisinopril. 5. Insulin. 6. Duloxetine. 7. Coreg. PHYSICAL EXAMINATION: VITAL SIGNS: T-max 100, blood pressure 170/85, pulse 86, respirations 18, and O2 saturation 98%. SKIN: Shows peripheral IV access. He is voiding in the diaper. LYMPH: No lymphadenopathy. HEENT: Ocular movements conjugate. Oral cavity is still with some desiccated teeth in place in the lower mandible. Gum disease is noted. Dry oral mucosa. NECK: No jugular vein distention. LUNGS: Symmetric. Clear breath sounds. HEART: S1 and S2. Regular rate without murmurs. No S3 or S4. ABDOMEN: Soft. Question of bladder distention. No organomegaly or ascites. No tenderness. EXTREMITIES: No joint inflammatory activity. No edema. He is able to move extremities. Pulses are 1+ in dorsalis pedis. Plantar responses are flexor. NEUROLOGIC: He is awake. He knows his name but could not tell me where he was. His ability to provide answers to questions is very limited due to his underlying dementia. LABORATORY DATA: White cell count 5.4 and 6.9, hemoglobin 14.9, and platelets 204 with a normal differential except for some monocytosis. His total lymphocyte count was 1.2 and 1.4. Sodium 138. Creatinine, 1.26 and 0.77. Liver profile normal. CK was 211. Albumin 3.5. Urinalysis with 4 to 6 wbc's. He has been saturating 98% on room air to 99%. IMAGING DATA: Chest x-ray with questionable left lower lobe infiltrate. Brain CT with no acute findings. ASSESSMENT: Vascular dementia, hypertension, and COVID infection acquired in the local [facility] with what appears to be thus far mild clinical course, although this is early on and the infection is in the first week, approximately four or five days of illness, although this is not a precise estimate since he may have been infected much earlier. According to the nursing staff at the [facility], there has been COVID activity for the past 2 weeks and a half. We will go ahead and check his ferritin, CRP, and D-dimer to try to have a gauge on the length of illness. We will also submit his COVID antibody level. At this moment, I do not think he is eligible for any treatment. I would discontinue the antimicrobials prescribed, but he does not meet criteria for antiviral or anti-inflammatory treatment for COVID, but we will have to keep monitoring closely since it appears that it is early on in the cycle of infection. Job ID: [id number]
[2020-06-02] MEDS ORDERED: Carvedilol 6.25 MG TAB PO SCH (21:00)
[2020-06-02] MEDS ORDERED: Lisinopril 20 MG TAB PO SCH (21:00)
[2020-06-02] MEDS: Atorvastatin Calcium 40 MG TAB PO SCH (21:44)
[2020-06-02] MEDS: Labetalol HCl 100 MG/20 ML VIAL SLOW IVP PRN (21:45)
[2020-06-02] MEDS ORDERED: hydrALAZINE 10 MG TAB PO PRN (23:59)
[2020-06-03] MEDS: Sodium Chloride 0.9% 1,000 ML IV SCH ×5 (04:35→23:30)
[2020-06-03] MEDS ORDERED: Carvedilol 6.25 MG TAB PO SCH ×2 (08:00)
[2020-06-03] MEDS: Carvedilol 6.25 MG TAB PO SCH ×2 (08:48→16:38)
[2020-06-03] MEDS: Lisinopril 20 MG TAB PO SCH (08:49)
[2020-06-03] MEDS: DULoxetine 30 MG CAP PO SCH (08:49)
[2020-06-03] MEDS: Enoxaparin Sodium 40 MG/0.4 ML SYRINGE SC SCH (08:49)
[2020-06-03] MEDS ORDERED: Lisinopril 20 MG TAB PO SCH (09:00)
[2020-06-03] MEDS ORDERED: Aspirin 81 mg Enteric Coated Tablet PO SCH ×2 (09:00)
[2020-06-03] MEDS: hydrALAZINE 20 MG/ML VIAL SLOW IVP PRN ×2 (09:15→23:32)
[2020-06-03 11:02] LABS: #Lymphocytes 1.6 thou/uL (1.20-3.40); #Monocytes 0.8 thou/uL (0.11-0.59); #Neutrophils 3.9 thou/uL (1.40-6.50); %Basophils 0.2 % (0.0-1.0); %Eosinophils 0.6 % (0.0-10.0); %Lymphocytes 25.1 % (21.0-51.0); %Monocytes 12.1 % (0.0-10.0); Hemoglobin 14.2 g/dL (14.0-18.0); Mean Corpuscular Hemoglobin 25.7 pg (27.0-31.0); Mean Corpuscular Volume 82.9 fL (78.0-98.0); Mean Platelet Volume 8.8 fL (7.4-10.4); Platelet Count 219 thou/uL (130-400); RBC Distribution Width 13.7 % (11.5-14.5); Red Blood Cell (RBC) Count 5.55 mill/uL (4.70-6.10); White Blood Cell (WBC) Count 6.2 thou/uL (4.8-10.8)
[2020-06-03 11:26] LABS: Anion Gap 12 mmol/L (10-20); BUN (Urea Nitrogen) 18 mg/dL (8.4-25.7); Calc. Creatinine Clearance 103 mL/min (70-130); Carbon Dioxide 23 mmol/L (23-31); Chloride 108 mmol/L (98-107); Estimated GFR-MDRD Greater than 90; Glucose 104 mg/dL (80-115); Potassium 3.8 mmol/L (3.5-5.1); Sodium 139 mmol/L (136-145)
[2020-06-03] MEDS: Atorvastatin Calcium 40 MG TAB PO SCH (20:01)
[2020-06-03] MEDS: Labetalol HCl 100 MG/20 ML VIAL SLOW IVP PRN (20:02)
--- NOTE | 2020-06-03 22:08 | PDOC.HOSPP ---
- Subjective Encounter Date: 06/03/20 Encounter Time: 15:00 Subjective: Patient was seen examined in bed. Today he is talking much less however notes no chest pain or shortness of breath. No significant overnight events. - Objective Vital Signs & Weight: Vital Signs (12 hours) Temp Pulse Resp BP Pulse Ox 06/03/20 20:01 98.5 F 63 18 184/74 H 95 06/03/20 18:31 198/82 H 06/03/20 12:45 171/88 H Weight Weight 147 lb 7.828 oz I&O: 06/02/20 06/03/20 06/04/20 06:59 06:59 06:59 Intake Total 150 3297 800 Balance 150 3297 800 Result Diagrams: 06/04/20 10:10 06/04/20 17:06 Additional Labs: Accuchecks 06/03/20 06/03/20 06/03/20 18:27 05:09 02:13 POC Glucose 76 99 100 06/02/20 20:02 POC Glucose 89 Hospitalist ROS - Medication Medications: Active Medications Generic Name Dose Route Start Last Admin Trade Name Freq PRN Reason Stop Dose Admin Acetaminophen 650 mg 06/02/20 20:01 06/02/20 21:45 Tylenol PO 650 mg Q6HR PRN Administration Fever > 101 Aspirin 325 mg 06/03/20 09:00 06/03/20 08:47 Ecotrin PO 324 mg DAILY DARYA Administration Atorvastatin Calcium 80 mg 06/02/20 21:00 06/03/20 20:01 Lipitor PO 80 mg HS DARYA Administration Carvedilol 6.25 mg 06/03/20 08:00 06/03/20 16:38 Coreg PO 6.25 mg BID-WM DARYA Administration Duloxetine HCl 30 mg 06/03/20 09:00 06/03/20 08:49 Cymbalta PO 30 mg DAILY DARYA Administration Enoxaparin Sodium 40 mg 06/02/20 09:00 06/03/20 08:49 Lovenox SC 40 mg 0900 DARYA Administration Hydralazine HCl 10 mg 06/02/20 17:47 06/03/20 09:15 Apresoline SLOW IVP 10 mg Q4H PRN Administration SBP Greater Than 170 Hydralazine HCl 10 mg 06/02/20 23:59 06/03/20 16:38 Apresoline PO 10 mg Q6HR PRN Administration Hypertension Sodium Chloride 1,000 mls @ 100 mls/hr 06/02/20 07:30 06/03/20 18:18 Normal Saline 0.9% IV 1,000 mls .Q10H DARYA Administration Labetalol HCl 10 mg 06/02/20 20:52 06/03/20 20:02 Normodyne SLOW IVP 10 mg Q4H PRN Administration Systolic BP > 180 Lisinopril 20 mg 06/03/20 09:00 06/03/20 08:49 Zestril PO 20 mg DAILY DARYA Administration - Exam General - other findings: Patient in bed, no acute distress. Heart - other findings: S1-S2 present. No murmurs gallops or rubs. Respiratory - other findings: No rhonchi or wheezes. Gastrointestinal - other findings: Grossly benign. Neurological - other findings: No focal deficits. Psychiatric - other findings: Oriented to self however not place and time. Hosp A/P - Plan 69-year-old male patient admitted on account of possible COVID pneumonia Acute hypoxic respiratory failure At presentation currently resolved. We will continue monitoring. Pneumonia With concerns for COVID infection. Initially started on cefepime and azithromycindiscontinue Currently not on antibiotics monitoring to assess for initiation of COVID treatment ID on board COVID infection ID consultedappreciate input. Acute encephalopathy Improving We will continue monitoring. Coronary disease Resume aspirin and statin Diabetes mellitus With mild sliding scale Hypertension Home medications started PRN hydralazine and labetalol Closely monitor blood pressure VTE prophylaxisLovenox
[2020-06-04] MEDS: Sodium Chloride 0.9% 1,000 ML IV SCH (04:05)
[2020-06-04] MEDS: hydrALAZINE 20 MG/ML VIAL SLOW IVP PRN ×2 (04:20→20:42)
[2020-06-04] MEDS: Lisinopril 20 MG TAB PO SCH (08:38)
[2020-06-04] MEDS: Carvedilol 6.25 MG TAB PO SCH ×2 (08:38→17:32)
[2020-06-04] MEDS: Enoxaparin Sodium 40 MG/0.4 ML SYRINGE SC SCH (08:38)
[2020-06-04] MEDS: DULoxetine 30 MG CAP PO SCH (08:38)
[2020-06-04] MEDS: Aspirin 325 MG TAB PO SCH (08:42)
[2020-06-04] MEDS ORDERED: Hydrochlorothiazide 25 MG TAB PO SCH (10:15)
[2020-06-04 10:22] LABS: #Eosinphils 0.1 thou/uL (0.0-0.7); #Lymphocytes 1.6 thou/uL (1.20-3.40); #Monocytes 0.6 thou/uL (0.11-0.59); #Neutrophils 3.6 thou/uL (1.40-6.50); %Basophils 0.4 % (0.0-1.0); %Eosinophils 1.2 % (0.0-10.0); %Lymphocytes 27.1 % (21.0-51.0); %Monocytes 10.6 % (0.0-10.0); %Neutrophils 60.6 % (42.0-75.0); Hemoglobin 14.4 g/dL (14.0-18.0); Mean Corpuscular HGB CONC 31.5 g/dL (32.0-36.0); Mean Corpuscular Hemoglobin 26.1 pg (27.0-31.0); Mean Corpuscular Volume 82.7 fL (78.0-98.0); Mean Platelet Volume 8.9 fL (7.4-10.4); Platelet Count 235 thou/uL (130-400); RBC Distribution Width 13.6 % (11.5-14.5); Red Blood Cell (RBC) Count 5.54 mill/uL (4.70-6.10); White Blood Cell (WBC) Count 5.9 thou/uL (4.8-10.8)
[2020-06-04 10:38] LABS: Anion Gap 13 mmol/L (10-20); BUN (Urea Nitrogen) 11 mg/dL (8.4-25.7); Calc. Creatinine Clearance 104 mL/min (70-130); Calcium 7.9 mg/dL (7.8-10.44); Carbon Dioxide 23 mmol/L (23-31); Chloride 106 mmol/L (98-107); Estimated GFR-MDRD Greater than 90; Glucose 206 mg/dL (80-115); Potassium 3.7 mmol/L (3.5-5.1); Sodium 138 mmol/L (136-145)
[2020-06-04] MEDS: Insulin Regular 300 UNITS/3 ML VIAL SC PRN ×2 (12:15→17:34)
--- NOTE | 2020-06-04 12:47 | PRG ---
DATE OF SERVICE: 06/04/2020 SUBJECTIVE: Mr. Hernandez is lying on his right lateral decubitus. He appears in no distress. Sleeping, arousable. He did not have any complaints, but again his cognitive function is quite limited. I spoke with the nurse. There is no diarrhea and no respiratory issues. OBJECTIVE: VITAL SIGNS: He has been afebrile, his BP 190/90, breathing at 18 to 20 times a minute, saturating 94 on room air. GENERAL: He appears in no distress. LUNGS: Fairly clear breath sounds. HEART: S1 and S2. Regular rate. ABDOMEN: Soft, not distended. EXTREMITIES: Moves extremities equally. NEUROLOGIC: His cognitive function is quite limited due to dementia. LABORATORY DATA: White cell count 5.9, hemoglobin 14, and platelets 235. D-dimer is 1 and ferritin 633. MEDICATIONS: He is currently on: 1. Coreg. 2. Duloxetine. 3. Enoxaparin as prophylaxis. 4. Hydralazine. 5. Lisinopril. He did not require any specific treatment for COVID, neither steroids or antiviral medication. ASSESSMENT AND DISCUSSION: 1. Vascular dementia. 2. Hypertension. 3. COVID infection, acquired at a local halfway. Fairly mild clinical course early on, maybe the first week or going on the second week. The antibodies were not submitted. I am not going to order them now, but I think he is ready for discharge planning. May consider a low-dose Eliquis for 2 weeks as DVT prophylaxis, but I do not think he requires any anti-inflammatory or antiviral treatment at the moment. Job ID: [id number]
[2020-06-04 17:41] LABS: Phosphorus 2.2 mg/dL (2.3-4.7)
--- NOTE | 2020-06-04 20:08 | PDOC.HOSPP ---
- Subjective Encounter Date: 06/04/20 Encounter Time: 15:00 Subjective: Was seen and examined in bed. He was very less communicative today. Occasionally answering my questions. However denied any pain or shortness of breath. - Objective Vital Signs & Weight: Vital Signs (12 hours) Temp Pulse Resp BP BP Pulse Ox 06/04/20 17:32 158/69 H 06/04/20 16:00 98.2 F 56 L 17 158/69 H 98 06/04/20 12:00 98.2 F 94 18 135/71 93 L 06/04/20 08:38 190/90 H 06/04/20 08:30 98.6 F 74 20 144/77 H 94 L Weight Weight 147 lb 7.828 oz I&O: 06/03/20 06/04/20 06/05/20 06:59 06:59 06:59 Intake Total 3297 2300 1380 Balance 3297 2300 1380 Result Diagrams: 06/04/20 10:10 06/04/20 10:10 Additional Labs: Accuchecks 06/04/20 06/03/20 04:05 20:15 POC Glucose 93 97 Hospitalist ROS - Medication Medications: Active Medications Generic Name Dose Route Start Last Admin Trade Name Freq PRN Reason Stop Dose Admin Acetaminophen 650 mg 06/02/20 20:01 06/02/20 21:45 Tylenol PO 650 mg Q6HR PRN Administration Fever > 101 Aspirin 325 mg 06/04/20 09:00 06/04/20 08:42 Aspirin PO 325 mg DAILY DARYA Administration Atorvastatin Calcium 80 mg 06/02/20 21:00 06/03/20 20:01 Lipitor PO 80 mg HS DARYA Administration Carvedilol 6.25 mg 06/03/20 08:00 06/04/20 17:32 Coreg PO 6.25 mg BID-WM DARYA Administration Duloxetine HCl 30 mg 06/03/20 09:00 06/04/20 08:38 Cymbalta PO 30 mg DAILY DARYA Administration Enoxaparin Sodium 40 mg 06/02/20 09:00 06/04/20 08:38 Lovenox SC 40 mg 0900 DARYA Administration Hydralazine HCl 10 mg 06/02/20 17:47 06/04/20 04:20 Apresoline SLOW IVP 10 mg Q4H PRN Administration SBP Greater Than 170 Hydralazine HCl 10 mg 06/02/20 23:59 06/03/20 16:38 Apresoline PO 10 mg Q6HR PRN Administration Hypertension Insulin Human Regular 0 units 06/02/20 20:05 06/04/20 17:34 Humulin R SC 2 unit .MILD SLIDING SCALE PRN Administration Mild Correctional Scale Labetalol HCl 10 mg 06/02/20 20:52 06/03/20 20:02 Normodyne SLOW IVP 10 mg Q4H PRN Administration Systolic BP > 180 Lisinopril 20 mg 06/03/20 09:00 06/04/20 08:38 Zestril PO 20 mg DAILY DARYA Administration - Exam General - other findings: Patient in bed, in no acute distress. Keeps eyes closed most of the time. Heart - other findings: S1-S2 present. No murmurs gallops or rubs. Respiratory - other findings: Air entry adequate bilaterally. No rhonchi or rales Gastrointestinal - other findings: Soft, nontender, nondistended bowel sounds present. Hosp A/P - Plan 69-year-old male patient admitted on account of possible COVID pneumonia and acute encephalopathy He has remained generally stable with no worsening of his coronary symptoms. He is generally lethargicwe will have physical therapy assess and plan for discharge tomorrow. Acute hypoxic respiratory failure At presentation currently resolved. We will continue monitoring. Pneumonia With concerns for COVID infection. Initially started on cefepime and azithromycindiscontinued Currently not on antibiotics monitoring to assess for initiation of COVID treatment ID reevaluationno requirement for further treatment. COVID infection Plan not to treat at this moment given mild infection. Received apixaban prophylaxis but no antiretrovirals Acute encephalopathy Improving Patient still generally however unwilling to cooperate. Check TSH, B12 Replete as needed. Coronary artery disease Resume aspirin and statin Diabetes mellitus With mild sliding scale Hypertension Home medications started PRN hydralazine and labetalol Closely monitor blood pressure Added thiazide diuretics today VTE prophylaxisLovenox
[2020-06-04] MEDS: Atorvastatin Calcium 40 MG TAB PO SCH (20:30)
[2020-06-04 20:32] LABS: Anion Gap 13 mmol/L (10-20); Carbon Dioxide 23 mmol/L (23-31); Chloride 105 mmol/L (98-107); Potassium 3.7 mmol/L (3.5-5.1); Sodium 137 mmol/L (136-145)
[2020-06-05] MEDS: Labetalol HCl 100 MG/20 ML VIAL SLOW IVP PRN (05:32)
[2020-06-05] MEDS: Lisinopril 20 MG TAB PO SCH (08:14)
[2020-06-05] MEDS: Aspirin 325 MG TAB PO SCH (08:14)
[2020-06-05] MEDS: DULoxetine 30 MG CAP PO SCH (08:14)
[2020-06-05] MEDS: Carvedilol 6.25 MG TAB PO SCH (08:15)
[2020-06-05] MEDS: Enoxaparin Sodium 40 MG/0.4 ML SYRINGE SC SCH (08:15)
[2020-06-05] MEDS ORDERED: Hydrochlorothiazide 25 MG TAB PO SCH (09:00)
[2020-06-05 14:11] VITALS: BP 146/78; TEMP 98.3
--- NOTE | 2020-06-06 14:44 | DIS ---
DATE OF ADMISSION: 06/01/2020 DATE OF DISCHARGE: 06/05/2020 DISCHARGE DIAGNOSES: 1. Acute encephalopathy. 2. Coronary artery disease. 3. Acute hypoxic respiratory failure. 4. Possible COVID pneumonia. 5. Diabetes mellitus. 6. Uncontrolled hypertension. HOSPITAL COURSE: The patient is a 69-year-old male with a history of hypertension, diabetes mellitus, depression who was sent in from a retirement facility after being recently diagnosed with COVID pneumonia. He had altered mental status and hypoxia. En route to the ED, he received oxygen with normalization of his saturation to 100%. ID was consulted to help manage his COVID pneumonia while he was initially on antibiotics. On ID evaluation, antibiotics were discontinued. He was monitored for a couple of days with no deterioration in status. Physical Therapy was asked to evaluate him and he was discharged back to his own facility in a stable state. CONSULTATION: Infectious Disease Dr. Krueger. DISCHARGE EXAMINATION: GENERAL: The patient was in bed in no distress. RESPIRATORY SYSTEM: Air entry adequate bilaterally. No wheezing. CARDIOVASCULAR: S1, S2 present. No murmurs, gallops or rubs. ABDOMEN: Benign. TILESETTER: The patient oriented to self, but not to place and time. He was however, communicative and with no focal deficits. DISCHARGE MEDICATIONS: 1. Tylenol 650 q. 4 p.r.n. 2. Acetaminophen 650 q. 4. p.r.n. 3. Hydralazine 10 mg p.o. q. 6. p.r.n. 4. Vitamin C 500 mg b.i.d. 5. Aspirin 325 mg daily. 6. Vitamin D 50 mcg daily. 7. Celexa 30 mg daily. 8. Glargine 35 units q.a.m. 9. Lisinopril 20 mg daily. 10. Metformin 1000 b.i.d. 11. Zinc 50 mg daily. 12. Atorvastatin 80 mg daily. 13. Carvedilol 6.25 mg b.i.d. 14. Hydrochlorothiazide 12.5 mg daily. 15. Tamsulosin 0.4 mg daily. DISPOSITION: [facility] facility. DIET: Diabetic diet. DISCHARGE CONDITION: Stable. Job ID: [id number] [facility]
--- NOTE | 2020-06-08 13:17 | PQF ---
CLINICAL DOCUMENTATION CLARIFICATION FORM: Dear : Carson Jacobs MD Date / Time: 06/08/2020 Please exercise your independent, professional judgment in responding to the clarification form. Clinical indicators are provided on the bottom of this form for your review Please check appropriate box(es) to clarify if the following diagnosis has been ruled in our ruled out: [ ] Ruled in Sepsis [ ] Continue to treat [ ] Resolved [ x] Ruled out Sepsis [ ] Improving [ ] Cannot rule out diagnosis [ ] Other diagnosis (Please specify if any) [ ] Unable to determine Physician Signature: Date/Time: For continuity of documentation, please document condition throughout progress notes and discharge summary. Thank You. To be completed by CDI/Coding staff for physician review: w Present w Clinical Indicators - Signs / Symptoms / Labs w Results and Location in Medical Record w [ x] w Encephalopathy unclear etiology could be related to sepsis w H&P on 06/01 w [ x ] w Pneumonia, COVID w H&P on 06/01 w [ x] w Acute hypoxic respiratory failure w H&P on 06/01 w [ ] w w w Present w Risk Factors w Results and Location in Medical Record w [ x] w Pneumonia w H&P on 06/01 w [ x] w COVID w w [ ] w w w [ ] w w w Present w Treatments w Results and Location in Medical Record w [ x ] w Azithromycin 500 mg w Medications on 06/02 w [ x ] w Cefepime 2gm w Medications on 06/02 w [ ] w w w [ ] w w CDS/Print Inspector Signature: KR Phone #: Date/Time: 06/08/2020 This is a permanent part of the Medical Record [facility]
== END 2020-06-05 18:21 | DRG 177 ==
LOC: ERS 14:05 → T4-B 16:28
PROVIDERS: ADMIT Student in an Organized Health Care Education/Training Program; ATTEND Student in an Organized Health Care Education/Training Program
PROC: 8E0ZXY6 Isolation (ICD-10-PCS; principal; 2020-06-01)
DX: U07.1 COVID-19 (principal); J12.89 Other viral pneumonia; J96.01 Acute respiratory failure with hypoxia; G93.49 Other encephalopathy; I25.10 Atherosclerotic heart disease of native coronary artery without angina pectoris; F03.90 Unspecified dementia, unspecified severity, without behavioral disturbance, psychotic disturbance, mood disturbance, and anxiety; I10 Essential (primary) hypertension; E11.9 Type 2 diabetes mellitus without complications; N40.0 Benign prostatic hyperplasia without lower urinary tract symptoms; E78.5 Hyperlipidemia, unspecified; F32.9 Major depressive disorder, single episode, unspecified; F20.9 Schizophrenia, unspecified; I25.2 Old myocardial infarction; Z86.73 Personal history of transient ischemic attack (TIA), and cerebral infarction without residual deficits; Z79.82 Long term (current) use of aspirin; Z79.899 Other long term (current) drug therapy; Z79.4 Long term (current) use of insulin; Z87.891 Personal history of nicotine dependence
CPT/HCPCS: 36415; 36416; 51701; 70450; 71045; 80048; 80053; 81003; 81015; 82550; 82607; 82728; 83605; 83615; 84100; 84484; 85025; 85379; 86140; 87040; 87086; 93005; 94760; 96365; 96367; J0360; J0456; J0692; J1650; J1815; J3490

== ENCOUNTER 2020-06-24 13:44 | Observation (INO) | payer MEDICARE, MEDICAID ==
[2020-06-24 14:00] LABS: #Eosinphils 0.2 thou/uL (0.0-0.7); #Lymphocytes 1.8 thou/uL (1.20-3.40); #Monocytes 0.7 thou/uL (0.11-0.59); #Neutrophils 4.4 thou/uL (1.40-6.50); %Basophils 0.3 % (0.0-1.0); %Eosinophils 3.3 % (0.0-10.0); %Lymphocytes 25.1 % (21.0-51.0); %Monocytes 9.6 % (0.0-10.0); %Neutrophils 61.7 % (42.0-75.0); Hemoglobin 13.9 g/dL (14.0-18.0); Mean Corpuscular HGB CONC 31.4 g/dL (32.0-36.0); Mean Corpuscular Hemoglobin 26.5 pg (27.0-31.0); Mean Corpuscular Volume 84.3 fL (78.0-98.0); Mean Platelet Volume 8.9 fL (7.4-10.4); Platelet Count 221 thou/uL (130-400); RBC Distribution Width 13.8 % (11.5-14.5); Red Blood Cell (RBC) Count 5.24 mill/uL (4.70-6.10); White Blood Cell (WBC) Count 7.1 thou/uL (4.8-10.8)
[2020-06-24 14:05] LABS: PTT 27.3 sec (22.9-36.1)
--- NOTE | 2020-06-24 14:14 | CT ---
CT BRAIN WITHOUT CONTRAST: Date: 06/24/2020 HISTORY: Level II stroke. Right-sided weakness with facial droop. COMPARISON: 06/01/2020. FINDINGS: Changes of cortical atrophy, old infarctions in the right frontal, left frontal, and right temporo-oc cipital lobes, and changes of chronic small vessel ischemic disease are again seen. The ventricular s ize is stable and the basilar cisterns are patent. No evidence of acute infarct, hemorrhage, midline shift, or abnormal extra-axial fluid collections are seen. The bony calvarium is intact. The visualiz ed paranasal sinuses and mastoid air cells are well aerated. IMPRESSION: No CT evidence of acute intracranial process. Discussed over the phone with Dr. Juma Epstein at 1359 hours. CODE CR.
[2020-06-24 14:23] LABS: ALT (SGPT) 24 U/L (8-55); AST (SGOT) 18 U/L (5-34); Albumin 3.6 g/dL (3.4-4.8); Alkaline Phosphatase 93 U/L (40-110); Anion Gap 17 mmol/L (10-20); BUN (Urea Nitrogen) 25 mg/dL (8.4-25.7); Bilirubin, Total 0.4 mg/dL (0.2-1.2); Calc. Creatinine Clearance 0 mL/min (70-130); Calcium 8.8 mg/dL (7.8-10.44); Carbon Dioxide 26 mmol/L (23-31); Chloride 103 mmol/L (98-107); Estimated GFR-MDRD 79; Globulin 3.1 g/dL (2.4-3.5); Glucose 202 mg/dL (80-115); Potassium 4.6 mmol/L (3.5-5.1); Protein, Total 6.7 g/dL (5.8-8.1); Sodium 141 mmol/L (136-145)
--- NOTE | 2020-06-24 14:24 | RAD ---
PORTABLE CHEST 1 VIEW: Date: 06/24/2020 Time: 1407 hours HISTORY: Altered mental status. COMPARISON: 06/01/2020. FINDINGS/IMPRESSION: The heart is enlarged. There is consolidation/atelectatic change in the left lung base with probable accompanying left effusion. No pneumothoraces seen. Scoliosis of the spine is again noted. POS: AH
[2020-06-24] MEDS ORDERED: Aspirin Chewable 81 MG TAB ONE (14:30)
[2020-06-24 14:34] LABS: Bilirubin Negative (Negative); Blood, Urine Negative (Negative); Clarity Clear (Clear); Glucose, Urine (Dipstick) 50 mg/dL (Negative); Ketone, Urine Negative (Negative); Leukocyte Negative Leu/uL (Negative); Nitrite Negative (Negative); Protein, Urine (Dipstick) 20 mg/dL (Neg-Trace); Specific Gravity, Urine 1.028 (1.002-1.036); pH, Urine 5.5 (5.0-9.0)
[2020-06-24] MEDS ORDERED: Dextrose 5% in Water 1,000 ML IV PRN (15:04)
[2020-06-24] MEDS ORDERED: HumaLOG 300 UNITS/3 ML VIAL SC PRN (15:04)
[2020-06-24] MEDS ORDERED: Dextrose 50% Abboject 50 ML SYRINGE SLOW IVP PRN (15:04)
--- NOTE | 2020-06-24 15:39 | PDOC.HHP ---
Hospitalist HPI - History of Present Illness Right Sided Weakness, syncopal episode History of Present Illness: PCP: Out of town ([facility] resident) The patient was non participatory with answering questions, so the H&P was taken from ER records, old medical records and nursing notes. This is a 69-year-old male presents to the emergency department for chief complaint of altered mental status and right-sided deficits. The patient is at a skilled nursing apparently he was sent there due to COVID approximately 20 days ago. The patient is currently afebrile and does not appear to be suffering from COVID but while eating lunch today he vomited and lost consciousness for a few seconds. Upon awakening he had right-sided deficits. No known history of seizures. No seizure activity was witnessed today. The patient does have a history of TIAs. The flight crew was contacted due to the right-sided deficits but upon their arrival they had resolved. The patient is alert and oriented x2 which is his baseline. Unknown if he is ambulatory at baseline. ED Course: VITAL SIGNS MonJun 24, 2020 13:51 KEVIN Quintero Miranda BP: 126/70, Pulse: 63, Resp: 21, O2 sat: 100 on (Room Air), Time: 06/24/2020 13:51. VITAL SIGNS MonJun 24, 2020 14:16 KEVIN Quintero Miranda BP: 142/73, Pulse: 64, Resp: 16, Temp: 97.5 (Oral), Pain: 0 FLAC, O2 sat: 100 on (Room Air), Time: 06/24/2020 14:16. Medication Administration: aspirin oral 324 mg Oral Given 14:33 06/24/2020 Hospitalist ROS - Review of Systems ROS unobtainable: due to mental status All other systems reviewed; all pertinent +/- noted in HPI/Subj - Medication Medications: 1. Tylenol 650mg q 4 hours prn 2. Hydralazine 10mg po q 6 hours prn 3. Vitamin C 500mg po BID 4. Aspirin 325mg po daily 5. Vitamin D 50 mcg po daily 6.Celexa 30mg po daily 7. Glargine 35 units q am 8. Lisinopril 20mg po daily 9. Metformin 1000mg po BID 10. Zinc 50 mg po daily 11. Atorvastatin 80mg po daily 12. Carvedilol 6.25mg po BID 13. HCTZ 12.5mg po daily 14. Tamsulosin 0.4mg po daily. Allergies: NKDA Hospitalist History - Past Medical History Source: patient, RN notes reviewed, skilled nursing record, old records Cardiac: reports: CAD, HTN, [place], Hyperlipidemia QUANTITATIVE RESEARCH ANALYST: reports: CVA, TIA, Other (ROBERT 100% occluded) Gastrointestinal: reports: GERD Psych: reports: Anxiety, Depression, Schizophrenia Renal/: reports: Benign prostatic enlarg. - Past Surgical History Past Surgical History: reports: Other (Aflutter RFA (2013)) - Family History Other Family History: unable to assess - Social History Smoking Status: Current every day smoker (1/2 ppd habit) Tobacco Type: cigarettes Alcohol: reports: Heavy (6 beers per day) Drugs: reports: none Living Situation: Residential Occupation: does not work Other Social History: unknown activity level. - Exam General Appearance: NAD, awake alert. negative: ill appearing General - other findings: non participatory with exam, will follow commands Eye: PERRL, anicteric sclera ENT: normocephalic atraumatic, dry oral mucosa (tachy mucous membranes) Neck: supple, symmetric, no JVD Heart: RRR, no murmur, no gallops, no rubs, normal peripheral pulses Respiratory: CTAB, no wheezes, no rales, no ronchi, normal chest expansion, no tachypnea Gastrointestinal: soft, non-tender, normal bowel sounds, no bruit, no guarding, no rigidity, distended Gastrointestinal - other findings: brief Extremities: no cyanosis, no edema Skin: no rashes Neurological: no focal deficits Neurological - other findings: refusing to speak, follows commands, MAEW, sports statistician strong Musculoskeletal: normal tone, normal strength Psychiatric - other findings: Alert, not speaking Hospitalist Results - Labs Result Diagrams: 06/24/20 13:51 06/24/20 13:51 Lab results: WBC 7.1 thou/uL (4.8-10.8) 06/24/20 13:51 Hgb 13.9 g/dL (14.0-18.0) L 06/24/20 13:51 Hct 44.2 % (42.0-52.0) 06/24/20 13:51 MCV 84.3 fL (78.0-98.0) 06/24/20 13:51 Plt Count 221 thou/uL (130-400) 06/24/20 13:51 Neutrophils % 61.7 % (42.0-75.0) 06/24/20 13:51 Sodium 141 mmol/L (136-145) 06/24/20 13:51 Potassium 4.6 mmol/L (3.5-5.1) 06/24/20 13:51 Chloride 103 mmol/L (98-107) 06/24/20 13:51 Carbon Dioxide 26 mmol/L (23-31) 06/24/20 13:51 BUN 25 mg/dL (8.4-25.7) 06/24/20 13:51 Creatinine 1.12 mg/dL (0.7-1.3) 06/24/20 13:51 Glucose 202 mg/dL (80-115) H 06/24/20 13:51 Calcium 8.8 mg/dL (7.8-10.44) 06/24/20 13:51 Total Bilirubin 0.4 mg/dL (0.2-1.2) 06/24/20 13:51 AST 18 U/L (5-34) 06/24/20 13:51 ALT 24 U/L (8-55) 06/24/20 13:51 Alkaline Phosphatase 93 U/L (40-110) 06/24/20 13:51 Creatine Kinase 51 U/L (30-200) 06/24/20 13:51 Troponin I 0.015 ng/mL (< 0.028) 06/24/20 13:51 Serum Total Protein 6.7 g/dL (5.8-8.1) 06/24/20 13:51 Albumin 3.6 g/dL (3.4-4.8) 06/24/20 13:51 Urine Ketones Negative mg/dL (Negative) 06/24/20 14:22 Urine Blood Negative (Negative) 06/24/20 14:22 Urine Nitrite Negative (Negative) 06/24/20 14:22 Ur Leukocyte Esterase Negative Erasmo/uL (Negative) 06/24/20 14:22 - EKG Interpretation EKG: EKG demonstrates sinus bradycardia with a rate of 59, [place] 150, QRS duration 78, QTc of 427, cures axis of 18 with inverted T waves in the lateral leads, axis no rmal conduction normal ST segments normal. Nonspecific EKG. - Radiology Interpretation Chest x-ray Status: report reviewed by me Additional Comment: FINDINGS/IMPRESSION: The heart is enlarged. There is consolidation/atelectatic change in the left lung base with probable accompanying left effusion. No pneumothoraces seen. Scoliosis of the spine is again noted. CT scan - head Status: report reviewed by me Additional Comment: FINDINGS: Changes of cortical atrophy, old infarctions in the right frontal, left frontal, and right temporo-occipital lobes, and changes of chronic small vessel ischemic disease are again seen. The ventricular size is stable and the basilar cisterns are patent. No evidence of acute infarct, hemorrhage, midline shift, or abnormal extra-axial fluid collections are seen. The bony calvarium is intact. The visualized paranasal sinuses and mastoid air cells are well aerated. IMPRESSION: No CT evidence of acute intracranial process. Hospitalist H&P A/P - Problem (1) TIA (transient ischemic attack) Code(s): G45.9 - TRANSIENT CEREBRAL ISCHEMIC ATTACK, UNSPECIFIED Status: Acute (2) Syncope Code(s): R55 - SYNCOPE AND COLLAPSE Status: Acute (3) CAD (coronary artery disease) Code(s): I25.10 - ATHSCL HEART DISEASE OF [place] CORONARY ARTERY W/O ANG PCTRS Status: Chronic (4) HTN (hypertension) Code(s): I10 - ESSENTIAL (PRIMARY) HYPERTENSION Status: Chronic (5) HLD (hyperlipidemia) Code(s): E78.5 - HYPERLIPIDEMIA, UNSPECIFIED Status: Chronic (6) DMII (diabetes mellitus, type 2) Status: Chronic (7) BPH (benign prostatic hyperplasia) Code(s): N40.0 - BENIGN PROSTATIC HYPERPLASIA WITHOUT LOWER URINRY TRACT SYMP Status: Chronic (8) Anxiety and depression Code(s): F41.9 - ANXIETY DISORDER, UNSPECIFIED; F32.9 - MAJOR DEPRESSIVE DISORDER, SINGLE EPISODE, UNSPECIFIED Status: Chronic - Plan Plan: 69/M with PMH for multiple CVAs, ROBERT occlusion, CAD presents for syncope and Right sided weakness. Admit Symptoms were resolved when [facility] arrived on scene. CT no acute findings, multiple chronic changes and old infarcts. EKG SB, no ST elevations CXR atelectic consolidation with association left effusion - Was COVID + PNA (past 30 days) Trop negative. UA unremarkable. BG 202. Given: ASA 325mg 3/20 CTA head and neck 1. 100% occlusion ROBERT 2. LICA has prominent calcification involves cavernous ICA. LMCA and LACA patent 02/28 NM MACHINES TECHNICIAN: normal wall motion. LVEF 50% 02/28 Echo: EF 55-60%, mild MR and TR, some diastolic dysfunction # TIA Symptoms likely due to vasovagal after vomiting/retching MRI Consult neurology and stroke team Continue ASA, add plavix Neuro checks permissive HTN Hydralazine prn #Syncope Likely secondary to vaso-vagal when vomiting MRI Neurology consultation Get orthostatic VS #CAD Continue ASA full dose Recent echo and MACHINES TECHNICIAN as above. #HTN Presented normotensive. Takes Coreg at home. Permissive hypertension hydralazine prn. #HLD Takes atorvastatin 80mg at home Continue atorvastatin. 04/20 Cholesterol 107 Triglycerides 52 LDL 62 HDL 35 #DMII Presented BG 202 Takes lantus 35units q morning at home. Restart lantus home dosing. AC/HS checks ISS #BPH Takes flomax at home. Restart flomax. #Anxiety and Depression appears stable. Takes Cymbalta at home. #Schizophrenia Had been previously hospitalized for in the past for psychotic break. Appears stable at this time. LMWH for DVT prophylaxis. No GI prophylaxis. Full Code. Medical contact is SON AT [phone]. Unable to reach via phone. Discussed case with Dr. Caicedo.
[2020-06-24 15:47] LABS: Troponin I Less than 0.010 ng/mL (< 0.028)
[2020-06-24] MEDS ORDERED: hydrALAZINE 20 MG/ML VIAL SLOW IVP PRN (16:59)
[2020-06-24] MEDS: Carvedilol 6.25 MG TAB PO SCH (17:09)
[2020-06-24 17:11] LABS: Acetaminophen Less than 6.0 mcg/mL (10.0-30.0); Alcohol Less than 10 mg/dL (Less than 10); Salicylate Less than 8.0 mg/dL (15.0-30.0)
[2020-06-24 18:17] VITALS: BMI 21.2
[2020-06-24 19:06] LABS: Troponin I Less than 0.010 ng/mL (< 0.028)
[2020-06-24] MEDS ORDERED: Magnesium 2 GM/50 ML 2 GM in Premix Bag 1 BAG IVPB SCH (19:30)
[2020-06-24 19:42] LABS: #Eosinphils 0.2 thou/uL (0.0-0.7); #Lymphocytes 2.5 thou/uL (1.20-3.40); #Monocytes 0.6 thou/uL (0.11-0.59); #Neutrophils 4.8 thou/uL (1.40-6.50); %Basophils 0.4 % (0.0-1.0); %Lymphocytes 31.1 % (21.0-51.0); %Monocytes 7.9 % (0.0-10.0); %Neutrophils 58.6 % (42.0-75.0); Hemoglobin 13.1 g/dL (14.0-18.0); Mean Corpuscular HGB CONC 30.7 g/dL (32.0-36.0); Mean Corpuscular Hemoglobin 25.9 pg (27.0-31.0); Mean Corpuscular Volume 84.2 fL (78.0-98.0); Mean Platelet Volume 8.9 fL (7.4-10.4); Platelet Count 215 thou/uL (130-400); RBC Distribution Width 13.8 % (11.5-14.5); Red Blood Cell (RBC) Count 5.06 mill/uL (4.70-6.10); White Blood Cell (WBC) Count 8.1 thou/uL (4.8-10.8)
[2020-06-24 19:58] LABS: Anion Gap 14 mmol/L (10-20); BUN (Urea Nitrogen) 23 mg/dL (8.4-25.7); Calc. Creatinine Clearance 66 mL/min (70-130); Calcium 8.4 mg/dL (7.8-10.44); Carbon Dioxide 26 mmol/L (23-31); Chloride 105 mmol/L (98-107); Estimated GFR-MDRD Greater than 90; Glucose 116 mg/dL (80-115); Magnesium 1.6 mg/dL (1.6-2.6); Phosphorus 3.3 mg/dL (2.3-4.7); Potassium 3.8 mmol/L (3.5-5.1); Sodium 141 mmol/L (136-145)
[2020-06-24 20:03] LABS: Troponin I Less than 0.010 ng/mL (< 0.028)
[2020-06-24] MEDS ORDERED: Clopidogrel Bisulfate 75 MG TAB PO SCH (21:00)
[2020-06-24] MEDS ORDERED: Atorvastatin Calcium 40 MG TAB PO SCH ×2 (21:00)
[2020-06-25] MEDS ORDERED: Aspirin 325 mg Enteric Coated Tablet PO SCH (09:00)
[2020-06-25] MEDS ORDERED: Cholecalciferol 1,000 UNITS (25 MCG) TAB PO SCH (09:00)
[2020-06-25] MEDS ORDERED: Enoxaparin Sodium 40 MG/0.4 ML SYRINGE SC SCH (09:00)
[2020-06-25] MEDS ORDERED: Tamsulosin HCl 0.4 MG CAP PO SCH (09:00)
[2020-06-25] MEDS ORDERED: Insulin Glargine 35 UNITS in Pre-Filled Syringe 1 EACH SC SCH (09:00)
[2020-06-25] MEDS ORDERED: DULoxetine 30 MG CAP PO SCH (09:00)
--- NOTE | 2020-06-25 10:32 | MRI ---
MRI BRAIN WITHOUT CONTRAST: Date: 06/25/2020 HISTORY: Right-sided weakness and facial droop. COMPARISON: MRI dated 05/11/2020. CORRELATION: CT scan from previous day. FINDINGS: Changes of cortical atrophy, old infarctions in the right frontal, left frontal, and temporo-occipita l lobes, and changes of chronic small vessel ischemic disease are again seen. The ventricular size is stable and the basilar cisterns are patent. No restricted diffusion is noted. No evidence of acute infarct, hemorrhage, midline shift, or abnormal extra-axial fluid collections a re seen. There is mucosal disease in the right maxillary sinus. IMPRESSION: Chronic changes. No evidence of acute intracranial process. POS: OFF
[2020-06-25] MEDS: Carvedilol 6.25 MG TAB PO SCH ×2 (11:17→16:34)
[2020-06-25 11:36] VITALS: TEMP 97.5
--- NOTE | 2020-06-25 12:58 | CON ---
NEUROLOGY CONSULTATION DATE OF CONSULTATION: 06/25/2020 REASON FOR CONSULTATION: Altered mental status/stroke. HISTORY OF PRESENT ILLNESS: Mr. Hernandez is a 69-year-old male with medical history significant for coronary artery disease, hypertension, myocardial infarction, hyperlipidemia, prior CVA, TIA, right ICA 100% occlusion, anxiety, depression, schizophrenia and benign prostatic enlargement, presented with altered mental status and an episode of syncope associated with right-sided deficits. The patient is a [place] [facility] resident and was sent there due to COVID pneumonia. Approximately 20 days ago, the patient has been afebrile and did not exhibit any symptoms of COVID, but he was eating lunch yesterday, and all of a sudden, he vomited and lost consciousness for a few seconds. Nobody witnessed the episode. However, on wakening up, he had right-sided deficits. No seizure activity was noted. The patient does have history of TIA. The flight crew was contacted and he was sent to [facility] for further evaluation. On arrival to the emergency room, he was alert and oriented x2, which is his baseline, but had persistent right-sided deficits. REVIEW OF SYSTEMS: Unobtainable due to the patient's mental status. He was given aspirin in the emergency room and admitted for further evaluation. PAST MEDICAL HISTORY: Coronary artery disease, hypertension, myocardial infarction, hyperlipidemia, prior CVA, TIA, right internal carotid artery stenosis 100% occlusion, GERD, depression, schizophrenia, and benign prostatic enlargement. PAST SURGICAL HISTORY: Atrial flutter RFA in 2012. FAMILY HISTORY: No significant family history. ALLERGIES: NO KNOWN DRUG ALLERGIES. SOCIAL HISTORY: care home resident. Smokes half a pack a day and drinks 6 beers per day. Denies illegal drug use. MEDICATIONS: 1. Tylenol 650 mg q.4 hours p.r.n. 2. Hydralazine 10 mg p.o. q.6 hours p.r.n. 3. Vitamin C 500 mg p.o. b.i.d. 4. Aspirin 325 mg p.o. daily. 5. Vitamin D 50 mcg p.o. daily. 6. Celexa 30 mg p.o. daily. 7. Glargine 35 units q a.m. 8. Lisinopril 20 mg p.o. daily. 9. Metformin 1000 mg p.o. b.i.d. 10. Zinc 50 mg p.o. daily. 11. Atorvastatin 80 mg p.o. daily. 12. Carvedilol 6.25 mg p.o. b.i.d. 13. Hydrochlorothiazide 12.5 mg p.o. daily. 14. Tamsulosin 0.4 mg p.o. daily. PHYSICAL EXAMINATION: VITAL SIGNS: Blood pressure 126/70, pulse 60, and respiratory rate 18. General Appearance: NAD, awake alert. negative: ill appearing Eye: PERRL, anicteric sclera ENT: normocephalic atraumatic, dry oral mucosa (tachy mucous membranes) Neck: supple, symmetric, no JVD Heart: RRR, no murmur, no gallops, no rubs, normal peripheral pulses Respiratory: CTAB, no wheezes, no rales, no ronchi, normal chest expansion, no tachypnea Gastrointestinal: soft, non-tender, normal bowel sounds, no bruit, no guarding, no rigidity, distended Gastrointestinal - other findings: brief Extremities: no cyanosis, no edema Skin: no rashes Neurological: Mental status; the patient is alert, awake, and follows commands intermittently. Speech is clear. He is alert and oriented to person and place. Cranial nerves; pupils are 4 mm, round, and reactive to light. Face symmetric. Tongue midline. Moves neck in both direction. Hearing seems to be intact. Motor; muscle tone and bulk are normal. Did not cooperate with strength testing. Right hemiparesis. Cerebellar, did not cooperate with the testing. Gait deferred due to the patient's safety reasons. DATA REVIEWED: I reviewed the labs, which were significant for anemia and hemoglobin of 13.9 and hyperglycemia, blood glucose 202. EKG showed sinus bradycardia with heart rate of 59 on initial presentation. A chest x-ray was normal. CT scan showed old infarction in the right frontal, left frontal, right temporal, temporo-occipital, and changes were seen with small vessel disease; however, no acute intracranial abnormality. Lab results: WBC 7.1 thou/uL (4.8-10.8) 06/24/20 13:51 Hgb 13.9 g/dL (14.0-18.0) L 06/24/20 13:51 Hct 44.2 % (42.0-52.0) 06/24/20 13:51 MCV 84.3 fL (78.0-98.0) 06/24/20 13:51 Plt Count 221 thou/uL (130-400) 06/24/20 13:51 Neutrophils % 61.7 % (42.0-75.0) 06/24/20 13:51 Sodium 141 mmol/L (136-145) 06/24/20 13:51 Potassium 4.6 mmol/L (3.5-5.1) 06/24/20 13:51 Chloride 103 mmol/L (98-107) 06/24/20 13:51 Carbon Dioxide 26 mmol/L (23-31) 06/24/20 13:51 BUN 25 mg/dL (8.4-25.7) 06/24/20 13:51 Creatinine 1.12 mg/dL (0.7-1.3) 06/24/20 13:51 Glucose 202 mg/dL (80-115) H 06/24/20 13:51 Calcium 8.8 mg/dL (7.8-10.44) 06/24/20 13:51 Total Bilirubin 0.4 mg/dL (0.2-1.2) 06/24/20 13:51 AST 18 U/L (5-34) 06/24/20 13:51 ALT 24 U/L (8-55) 06/24/20 13:51 Alkaline Phosphatase 93 U/L (40-110) 06/24/20 13:51 Creatine Kinase 51 U/L (30-200) 06/24/20 13:51 Troponin I 0.015 ng/mL (< 0.028) 06/24/20 13:51 Serum Total Protein 6.7 g/dL (5.8-8.1) 06/24/20 13:51 Albumin 3.6 g/dL (3.4-4.8) 06/24/20 13:51 Urine Ketones Negative mg/dL (Negative) 06/24/20 14:22 Urine Blood Negative (Negative) 06/24/20 14:22 Urine Nitrite Negative (Negative) 06/24/20 14:22 Ur Leukocyte Esterase Negative Erasmo/uL (Negative) 06/24/20 14:22 - EKG Interpretation EKG: EKG demonstrates sinus bradycardia with a rate of 59, [place] 150, QRS duration 78, QTc of 427, cures axis of 18 with inverted T waves in the lateral leads, axis normal conduction normal ST segments normal. Nonspecific EKG. - Radiology Interpretation Chest x-ray Status: report reviewed by me Additional Comment: FINDINGS/IMPRESSION: The heart is enlarged. There is consolidation/atelectatic change in the left lung base with probable accompanying left effusion. No pneumothoraces seen. Scoliosis of the spine is again noted. CT scan - head Status: report reviewed by me Additional Comment: FINDINGS: Changes of cortical atrophy, old infarctions in the right frontal, left frontal, and right temporo-occipital lobes, and changes of chronic small vessel ischemic disease are again seen. The ventricular size is stable and the basilar cisterns are patent. No evidence of acute infarct, hemorrhage, midline shift, or abnormal extra-axial fluid collections are seen. The bony calvarium is intact. The visualized paranasal sinuses and mastoid air cells are well aerated. IMPRESSION: No CT evidence of acute intracranial process. ASSESSMENT AND PLAN: (1) TIA (transient ischemic attack) Code(s): G45.9 - TRANSIENT CEREBRAL ISCHEMIC ATTACK, UNSPECIFIED Status: Acute (2) Syncope Code(s): R55 - SYNCOPE AND COLLAPSE Status: Acute (3) CAD (coronary artery disease) Code(s): I25.10 - ATHSCL HEART DISEASE OF [place] CORONARY ARTERY W/O ANG PCTRS Status: Chronic (4) HTN (hypertension) Code(s): I10 - ESSENTIAL (PRIMARY) HYPERTENSION Status: Chronic (5) HLD (hyperlipidemia) Code(s): E78.5 - HYPERLIPIDEMIA, UNSPECIFIED Status: Chronic (6) DMII (diabetes mellitus, type 2) Status: Chronic (7) BPH (benign prostatic hyperplasia) Code(s): N40.0 - BENIGN PROSTATIC HYPERPLASIA WITHOUT LOWER URINRY TRACT SYMP Status: Chronic (8) Anxiety and depression Code(s): F41.9 - ANXIETY DISORDER, UNSPECIFIED; F32.9 - MAJOR DEPRESSIVE DISORDER, SINGLE EPISODE, UNSPECIFIED Status: Chronic Mr. Ritesh Hernandez is a 69-year-old male with history significant for hypertension, coronary artery disease, prior cerebrovascular accident and transient ischemic attacks, right internal carotid artery occlusion presented with syncope, altered mental status and right-sided weakness. The symptoms resolved. On arrival to the emergency room, he has most likely TIA. Because of the risk factors, continue aspirin and add Plavix for secondary stroke prevention. Continue high-intensity statin for secondary stroke prevention. Strict control of blood pressure and blood glucose. Neuro checks every 4 hours. Continue home medications. The patient had the CTA of the head and neck completed in December 2019, which showed 100% occlusion of right ICA so no need to repeat the testing. He had an echocardiogram performed in January 2020, which showed ejection fraction of 55% to 60% with some diastolic dysfunction, so no need to repeat the study. Continue home medications. Continue medical management per primary team. Telemetry. DVT prophylaxis. We will continue to follow. Thank you for the consult. Job ID: [id number] MTDD
--- NOTE | 2020-06-25 13:54 | EEG ---
DATE OF SERVICE: 06/25/2020 ATTENDING PHYSICIAN: Katey Knapp MD. This EEG was performed using 24-channel [employer] video digital EEG machine with 24-disk electrodes. This was an extended 2 hours 5 minutes of inpatient video EEG recording. Digital analysis of the EEG was done for spike and seizure detection, which revealed no abnormalities. BACKGROUND: The posterior background rhythm was not observed. HYPERVENTILATION: Not performed. PHOTIC STIMULATION: No significant response seen with photic stimulation. SLEEP: No stage change was observed. EEG DIAGNOSES: 1. Generalized irregular theta-delta activity seen throughout the recording. 2. Absence of posterior background rhythm. CLINICAL INTERPRETATION: This EEG is consistent with moderate generalized nonspecific cerebral dysfunction. Job ID: [id number]
[2020-06-25 16:34] VITALS: BP 126/59
--- NOTE | 2020-06-26 16:20 | DIS ---
DATE OF ADMISSION: 06/24/2020 DATE OF DISCHARGE: 06/25/2020 DISCHARGE DIAGNOSES: As of the following; 1. Acute metabolic encephalopathy, most likely secondary to transient ischemic attack. 2. Syncope. 3. History of COVID pneumonia. 4. Diabetes. HOSPITAL COURSE: The patient is a 69-year-old male who initially presented to the hospital after having right-sided weakness and syncopal episode. Apparently, he was eating and was noted to vomit his lunch, lost consciousness, and was noted to have right-sided deficits; at which time, he was transferred to the hospital for further evaluation. Upon coming to the ER, his symptoms had completely resolved. I did review the patient's scans which were done recently this year. He has had a CTA done on December 2019, which indicated complete occlusion of the right ICA and also mild focal regional stenosis involving the left PI segment of the left FRONT OFFICE SPECIALIST, severe multifocal narrowing involving the intracranial vertebral artery as well as the origin of the vertebral artery, mild luminal caliber narrowing in the intracranial and right vertebral artery. He has significant stenosis all over his brain. At this time, his CTA was not repeated. Only, an MRI brain was repeated, which did not show any acute abnormalities or acute stroke. The patient also had an echocardiogram, which was also on November, which indicated an EF 55% to 60%. He also had severe concentric left ventricular hypertrophy. At this time, the patient was known to be back at his baseline, which is oriented x1, and he does follow all the commands. He was seen by Neurology. He also underwent an EEG, which was negative. The patient will be discharged home. DISCHARGE MEDICATIONS: He is going to be on: 1. Aspirin. 2. Plavix. 3. His home insulin. 4. Atorvastatin 80 mg daily. 5. Coreg 6.25 p.o. b.i.d. 6. Duloxetine 30 mg daily. 7. Hydralazine 10 mg as needed. 8. Hydrochlorothiazide 12.5 daily. 9. Lisinopril 20 mg daily. 10. Flomax 0.4 daily. 11. Metformin 500 mg b.i.d. PHYSICAL EXAMINATION: VITAL SIGNS: On discharge were as of the following; temperature of 98.8, heart rate of 83, blood pressure 143/67. GENERAL: He is awake, oriented to self, follows all commands. CV: S1, S2 present. No murmurs, rubs, or gallops. LUNGS: Clear to auscultation. No rhonchi or wheezes noted. ABDOMEN: Soft, nontender. Bowel sounds are present x2. He will be discharged back to his custodial facility. Job ID: [id number]
--- NOTE | 2020-06-28 13:05 | EKG ---
Test Reason : Blood Pressure : / mmHG Vent. Rate : 062 BPM Atrial Rate : 062 BPM P-R Int : 158 ms QRS Dur : 082 ms QT Int : 418 ms P-R-T Axes : 075 013 148 degrees QTc Int : 424 ms Normal sinus rhythm with sinus arrhythmia Abnormal ECG When compared with ECG of 01-JUN-2020 14:12, No significant change was found Confirmed by LIDA SCHULTE MD ([id number]) on 06/28/2020 1:04:45 PM Referred By: MORIAH KAM Confirmed By:LIDA SCHULTE MD
== END 2020-06-25 18:51 ==
LOC: ERS 13:44 → 2SE 14:59
PROVIDERS: ADMIT Internal Medicine; ATTEND Internal Medicine
DX: G93.41 Metabolic encephalopathy (principal); R55 Syncope and collapse; E11.9 Type 2 diabetes mellitus without complications; I65.21 Occlusion and stenosis of right carotid artery; I25.10 Atherosclerotic heart disease of native coronary artery without angina pectoris; I10 Essential (primary) hypertension; I25.2 Old myocardial infarction; E78.5 Hyperlipidemia, unspecified; K21.9 Gastro-esophageal reflux disease without esophagitis; F41.9 Anxiety disorder, unspecified; F32.9 Major depressive disorder, single episode, unspecified; F20.9 Schizophrenia, unspecified; N40.0 Benign prostatic hyperplasia without lower urinary tract symptoms; F17.210 Nicotine dependence, cigarettes, uncomplicated; Z86.19 Personal history of other infectious and parasitic diseases; Z86.73 Personal history of transient ischemic attack (TIA), and cerebral infarction without residual deficits; Z79.4 Long term (current) use of insulin; Z79.82 Long term (current) use of aspirin; Z79.899 Other long term (current) drug therapy
CPT/HCPCS: 36415; 36416; 51701; 70450; 70551; 71045; 80053; 80061; 80307; 81003; 82550; 83690; 83735; 84100; 84443; 84484; 85025; 85610; 85730; 93005; 93010; 95712; 95816; 95819; 95957; 96365; 96372; G0378; J1650; J1815; J3475

== ENCOUNTER 2021-07-25 17:29 | Inpatient (IN) | payer MEDICARE, MEDICAID ==
[~2021-07-25 17:29] MED LIST changes: -Iopamidol 370 76% 100 ML VIAL ONE; -Iopamidol 370 76% 50 ML VIAL FS ONE; +Iopamidol-370 76% 500 ML 1 ML ONE
[2021-07-25 17:46] LABS: #Basophils 0.1 thou/uL (0.0-0.2); #Eosinphils 0.3 thou/uL (0.0-0.7); #Lymphocytes 2.3 thou/uL (1.20-3.40); #Monocytes 0.5 thou/uL (0.11-0.59); #Neutrophils 3.1 thou/uL (1.40-6.50); %Basophils 1.1 % (0.0-1.0); %Lymphocytes 36.6 % (21.0-51.0); %Monocytes 7.8 % (0.0-10.0); %Neutrophils 49.5 % (42.0-75.0); Hemoglobin 14.6 g/dL (14.0-18.0); Mean Corpuscular HGB CONC 32.2 g/dL (32.0-36.0); Mean Corpuscular Hemoglobin 27.1 pg (27.0-31.0); Mean Platelet Volume 8.3 fL (7.4-10.4); Platelet Count 236 thou/uL (130-400); RBC Distribution Width 13.9 % (11.5-14.5); Red Blood Cell (RBC) Count 5.39 mill/uL (4.70-6.10); White Blood Cell (WBC) Count 6.3 thou/uL (4.8-10.8)
[2021-07-25 18:04] LABS: ALT (SGPT) 11 U/L (8-55); AST (SGOT) 12 U/L (5-34); Albumin 3.8 g/dL (3.4-4.8); Alkaline Phosphatase 86 U/L (40-110); Anion Gap 13 mmol/L (10-20); BUN (Urea Nitrogen) 13 mg/dL (8.4-25.7); Bilirubin, Total 0.3 mg/dL (0.2-1.2); Calc. Creatinine Clearance 0 mL/min (70-130); Carbon Dioxide 24 mmol/L (23-31); Chloride 109 mmol/L (98-107); Globulin 3.4 g/dL (2.4-3.5); Glucose 96 mg/dL (80-115); Potassium 3.9 mmol/L (3.5-5.1); Protein, Total 7.2 g/dL (5.8-8.1); Sodium 142 mmol/L (136-145)
[2021-07-25 19:25] LABS: Bilirubin Negative (Negative); Blood, Urine Negative (Negative); Clarity Clear (Clear); Glucose, Urine (Dipstick) Normal (Negative); Ketone, Urine Negative (Negative); Leukocyte Negative Leu/uL (Negative); Nitrite Negative (Negative); Protein, Urine (Dipstick) Negative (Neg-Trace); Specific Gravity, Urine 1.031 (1.002-1.036); Urobilinogen Normal mg/dL (Less than 2); pH, Urine 7.5 (5.0-9.0)
[2021-07-25] MEDS ORDERED: hydrALAZINE 20 MG/ML VIAL SLOW IVP PRN (21:44)
[2021-07-25] MEDS ORDERED: Amlodipine 10 MG TAB PO SCH (21:45)
[2021-07-25] MEDS ORDERED: Acetaminophen 650 MG Suppository PR PRN (21:45)
[2021-07-25] MEDS ORDERED: Ondansetron PF 4 MG/2 ML Vial IVP PRN (21:45)
[2021-07-25] MEDS ORDERED: Ondansetron ODT 4 MG TAB PO PRN (21:45)
[2021-07-25] MEDS ORDERED: Acetaminophen 325 MG TAB PO PRN (21:45)
[2021-07-25] MEDS ORDERED: Dextrose 50% Abboject 50 ML SYRINGE SLOW IVP PRN (21:50)
[2021-07-25] MEDS ORDERED: Dextrose 5% in Water 1,000 ML IV PRN (21:50)
[2021-07-25] MEDS ORDERED: HumaLOG 300 UNITS/3 ML VIAL SC PRN ×2 (21:50)
[2021-07-25] MEDS ORDERED: Carvedilol 6.25 MG TAB PO SCH (22:00)
[2021-07-25] MEDS ORDERED: Aspirin 81 mg Enteric Coated Tablet PO SCH (22:00)
[2021-07-25] MEDS ORDERED: Amlodipine 5 MG TAB ONE (22:13)
[2021-07-25 23:46] VITALS: BMI 22.1
[2021-07-25] MEDS: Amlodipine 10 MG TAB PO SCH (23:47)
[2021-07-26 04:23] LABS: Anion Gap 14 mmol/L (10-20); BUN (Urea Nitrogen) 12 mg/dL (8.4-25.7); Calc. Creatinine Clearance 74 mL/min (70-130); Calcium 9.1 mg/dL (7.8-10.44); Carbon Dioxide 23 mmol/L (23-31); Cardiac Risk 2.9 (Less than 4.5); Chloride 106 mmol/L (98-107); Cholesterol 139 mg/dl (< 200 Desired); Glucose 201 mg/dL (80-115); HDL Cholesterol 48 mg/dL (>60 Neg Risk); LDL Cholesterol, Calculated 83 mg/dL; Potassium 4.2 mmol/L (3.5-5.1); Sodium 139 mmol/L (136-145); Triglycerides 42 mg/dL (Less than 150)
[2021-07-26] MEDS ORDERED: hydrALAZINE 10 MG TAB PO PRN (07:21)
[2021-07-26] MEDS ORDERED: Loperamide HCl 2 MG CAP PO PRN (07:23)
[2021-07-26] MEDS ORDERED: Calcium Carbonate 500 MG ChewTAB PO PRN (07:23)
[2021-07-26] MEDS ORDERED: GUAIFENESIN SF SOLN 200 MG/10 ML UDCUP PO PRN (07:23)
[2021-07-26] MEDS ORDERED: Sodium Chloride 0.65% Nasal 44 ML BOT EA NARE PRN (07:23)
[2021-07-26] MEDS ORDERED: Zolpidem Tartrate 5 MG TAB PO PRN (07:23)
[2021-07-26] MEDS ORDERED: HYDROcodone/Acetaminophen 5/325 mg Tablet PO PRN (07:23)
[2021-07-26] MEDS ORDERED: Bisacodyl 5 MG TAB PO PRN (07:23)
[2021-07-26] MEDS ORDERED: Cepastat Lozenges 1 LOZ PO PRN (07:23)
[2021-07-26] MEDS ORDERED: Hydrocerin (Eucerin) Cream 120 gm Jar TOP PRN (07:23)
[2021-07-26] MEDS ORDERED: Artificial Tear Sol 15 ML BOT EA EYE PRN (07:23)
[2021-07-26] MEDS ORDERED: Senokot S 8.6-50 MG TAB PO PRN (07:23)
[2021-07-26] MEDS ORDERED: Loratadine 10 MG TAB PO PRN (07:23)
[2021-07-26] MEDS ORDERED: hydrALAZINE 20 MG/ML VIAL SLOW IVP PRN (07:24)
[2021-07-26] MEDS ORDERED: Non-Formulary Item 1 EACH (Ferrous Sulfate [Ferrous Sulfate] 325 MG Tab) PO SCH (09:00)
[2021-07-26] MEDS ORDERED: Aspirin 81 mg Enteric Coated Tablet PO SCH (09:00)
[2021-07-26] MEDS ORDERED: Non-Formulary Item 1 EACH (Insulin Detemir [Levemir] 100 UNIT/ML Vial) SQ SCH (09:00)
[2021-07-26 11:10] LABS: #Basophils 0.1 thou/uL (0.0-0.2); #Eosinphils 0.3 thou/uL (0.0-0.7); #Lymphocytes 2.5 thou/uL (1.20-3.40); #Monocytes 0.7 thou/uL (0.11-0.59); #Neutrophils 3.4 thou/uL (1.40-6.50); %Basophils 0.8 % (0.0-1.0); %Eosinophils 3.9 % (0.0-10.0); %Lymphocytes 36.4 % (21.0-51.0); %Monocytes 9.6 % (0.0-10.0); %Neutrophils 49.3 % (42.0-75.0); Hemoglobin 14.6 g/dL (14.0-18.0); Mean Corpuscular HGB CONC 31.5 g/dL (32.0-36.0); Mean Corpuscular Hemoglobin 26.4 pg (27.0-31.0); Mean Corpuscular Volume 83.8 fL (78.0-98.0); Mean Platelet Volume 8.7 fL (7.4-10.4); Platelet Count 245 thou/uL (130-400); RBC Distribution Width 14.2 % (11.5-14.5); Red Blood Cell (RBC) Count 5.53 mill/uL (4.70-6.10); White Blood Cell (WBC) Count 6.9 thou/uL (4.8-10.8)
[2021-07-26] MEDS: hydrALAZINE 25 MG TAB PO SCH ×2 (11:31→20:12)
[2021-07-26] MEDS: Aspirin Chewable 81 MG TAB PO SCH (11:31)
[2021-07-26] MEDS: Enoxaparin Sodium 40 MG/0.4 ML SYRINGE SC SCH (11:31)
[2021-07-26] MEDS: Ferrous Sulfate 325 MG TAB PO SCH ×2 (11:31→20:12)
[2021-07-26] MEDS: Famotidine 20 MG TAB PO SCH ×2 (11:31→20:12)
[2021-07-26] MEDS: Amlodipine 10 MG TAB PO SCH (11:32)
[2021-07-26] MEDS: Lantus 1000 UNITS/10 ML VIAL SC SCH (11:32)
[2021-07-26] MEDS: Tamsulosin HCl 0.4 MG CAP PO SCH (11:32)
[2021-07-26] MEDS: DULoxetine 60 MG CAP PO SCH (11:32)
[2021-07-26] MEDS: Carvedilol 6.25 MG TAB PO SCH ×2 (11:33→15:45)
[2021-07-26 12:35] LABS: SARS-CoV-2 PCR by NAA Not Detected (NotDetected)
[2021-07-26] MEDS: Atorvastatin Calcium 40 MG TAB PO SCH (20:12)
[2021-07-26] MEDS: Clopidogrel Bisulfate 75 MG TAB PO SCH (20:12)
[2021-07-27] MEDS ORDERED: FLU VACC QS2021-22(65YR UP)/PF 240 MCG/0.7 ML SYRINGE IM ONE (09:00)
[2021-07-27] MEDS: Aspirin Chewable 81 MG TAB PO SCH (09:11)
[2021-07-27] MEDS: Tamsulosin HCl 0.4 MG CAP PO SCH (09:11)
[2021-07-27] MEDS: Famotidine 20 MG TAB PO SCH ×2 (09:12→19:51)
[2021-07-27] MEDS: hydrALAZINE 25 MG TAB PO SCH ×2 (09:12→19:51)
[2021-07-27] MEDS: Ferrous Sulfate 325 MG TAB PO SCH ×2 (09:12→19:51)
[2021-07-27] MEDS: Carvedilol 6.25 MG TAB PO SCH (09:12)
[2021-07-27] MEDS: DULoxetine 60 MG CAP PO SCH (09:12)
[2021-07-27] MEDS: Enoxaparin Sodium 40 MG/0.4 ML SYRINGE SC SCH (09:18)
[2021-07-27] MEDS: Lantus 1000 UNITS/10 ML VIAL SC SCH (09:18)
[2021-07-27] MEDS ORDERED: Amlodipine 10 MG TAB PO SCH (09:30)
[2021-07-27] MEDS: Amlodipine 10 MG TAB PO SCH (09:32)
[2021-07-27] MEDS: Atorvastatin Calcium 40 MG TAB PO SCH (19:49)
[2021-07-27] MEDS: Clopidogrel Bisulfate 75 MG TAB PO SCH (19:52)
[2021-07-28] MEDS: hydrALAZINE 25 MG TAB PO SCH (08:38)
[2021-07-28] MEDS: Enoxaparin Sodium 40 MG/0.4 ML SYRINGE SC SCH (08:38)
[2021-07-28] MEDS: Famotidine 20 MG TAB PO SCH (08:38)
[2021-07-28] MEDS: DULoxetine 60 MG CAP PO SCH (08:39)
[2021-07-28] MEDS: Aspirin Chewable 81 MG TAB PO SCH (08:39)
[2021-07-28] MEDS: Ferrous Sulfate 325 MG TAB PO SCH (08:39)
[2021-07-28] MEDS: Tamsulosin HCl 0.4 MG CAP PO SCH (08:39)
[2021-07-28] MEDS: Amlodipine 10 MG TAB PO SCH (08:46)
[2021-07-28] MEDS ORDERED: Polyethylene Glycol 3350 17 GM Packet PO SCH (10:30)
[2021-07-28] MEDS: Lantus 1000 UNITS/10 ML VIAL SC SCH (11:31)
[2021-07-28 15:52] VITALS: BP 140/71; TEMP 98.4
== END 2021-07-28 17:15 | DRG 78 ==
LOC: ERS 17:29 → 3SE 21:03
PROVIDERS: ADMIT Student in an Organized Health Care Education/Training Program; ATTEND Internal Medicine
DX: I67.4 Hypertensive encephalopathy (principal); I16.1 Hypertensive emergency; I42.9 Cardiomyopathy, unspecified; G45.9 Transient cerebral ischemic attack, unspecified; I65.21 Occlusion and stenosis of right carotid artery; Z20.822 Contact with and (suspected) exposure to COVID-19; I10 Essential (primary) hypertension; I25.10 Atherosclerotic heart disease of native coronary artery without angina pectoris; E78.5 Hyperlipidemia, unspecified; N40.0 Benign prostatic hyperplasia without lower urinary tract symptoms; F20.9 Schizophrenia, unspecified; F32.A Depression, unspecified; F41.9 Anxiety disorder, unspecified; F17.210 Nicotine dependence, cigarettes, uncomplicated; I16.0 Hypertensive urgency; E11.9 Type 2 diabetes mellitus without complications; F01.50 Vascular dementia, unspecified severity, without behavioral disturbance, psychotic disturbance, mood disturbance, and anxiety; G93.89 Other specified disorders of brain; I25.2 Old myocardial infarction; Z79.899 Other long term (current) drug therapy; Z79.82 Long term (current) use of aspirin; Z79.4 Long term (current) use of insulin
CPT/HCPCS: 36415; 36416; 70450; 70496; 70498; 70551; 80048; 80053; 80061; 81003; 84484; 85025; 93005; 93306; 95712; 95819; 95957; 96365; 96366; J1650; J1815; Q9967; U0003; U0005

== ENCOUNTER 2021-08-18 17:23 | Observation (INO) | payer MEDICARE, MEDICAID ==
[2021-08-18 18:28] VITALS: BMI 23.0
[2021-08-18] MEDS ORDERED: hydrALAZINE 20 MG/ML VIAL SLOW IVP PRN (21:06)
[2021-08-18] MEDS ORDERED: Ondansetron PF 4 MG/2 ML Vial IVP PRN (21:34)
[2021-08-18] MEDS ORDERED: Acetaminophen 325 MG TAB PO PRN (21:34)
[2021-08-18] MEDS ORDERED: HumaLOG 300 UNITS/3 ML VIAL SC PRN (23:16)
[2021-08-18] MEDS ORDERED: Dextrose 5% in Water 1,000 ML IV PRN (23:16)
[2021-08-18] MEDS ORDERED: Dextrose 50% Abboject 50 ML SYRINGE SLOW IVP PRN (23:16)
[2021-08-19 05:20] LABS: #Basophils 0.1 thou/uL (0.0-0.2); #Eosinphils 0.1 thou/uL (0.0-0.7); #Lymphocytes 2.4 thou/uL (1.20-3.40); #Monocytes 0.6 thou/uL (0.11-0.59); #Neutrophils 3.9 thou/uL (1.40-6.50); %Basophils 0.8 % (0.0-1.0); %Lymphocytes 33.9 % (21.0-51.0); %Neutrophils 54.4 % (42.0-75.0); Hemoglobin 14.4 g/dL (14.0-18.0); Mean Corpuscular HGB CONC 32.4 g/dL (32.0-36.0); Mean Corpuscular Hemoglobin 27.2 pg (27.0-31.0); Mean Corpuscular Volume 84.1 fL (78.0-98.0); Platelet Count 284 thou/uL (130-400); Red Blood Cell (RBC) Count 5.27 mill/uL (4.70-6.10); White Blood Cell (WBC) Count 7.1 thou/uL (4.8-10.8)
[2021-08-19 05:41] LABS: Anion Gap 12 mmol/L (10-20); BUN (Urea Nitrogen) 15 mg/dL (8.4-25.7); Calc. Creatinine Clearance 84 mL/min (70-130); Calcium 9.2 mg/dL (7.8-10.44); Carbon Dioxide 27 mmol/L (23-31); Chloride 104 mmol/L (98-107); Potassium 3.5 mmol/L (3.5-5.1); Sodium 139 mmol/L (136-145)
[2021-08-19 05:46] LABS: Glucose 50 mg/dL (80-115)
[2021-08-19] MEDS ORDERED: Dextrose 5 %-0.45 % NaCl 1,000 ML IV SCH (06:00)
[2021-08-19] MEDS ORDERED: FLU VACC QS2021-22(65YR UP)/PF 240 MCG/0.7 ML SYRINGE IM ONE (09:00)
[2021-08-19] MEDS ORDERED: Aspirin Chewable 81 MG TAB PO SCH (09:00)
[2021-08-19] MEDS ORDERED: Lantus 1000 UNITS/10 ML VIAL SC SCH (09:00)
[2021-08-19] MEDS ORDERED: DULoxetine 60 MG CAP PO SCH (09:00)
[2021-08-19] MEDS ORDERED: Tamsulosin HCl 0.4 MG CAP PO SCH (09:00)
[2021-08-19 11:14] LABS: Troponin I 0.014 ng/mL (< 0.028)
[2021-08-19] MEDS ORDERED: ADENOSINE 60 MG/20 ML VIAL ONE (12:01)
[2021-08-19 12:08] LABS: SARS-CoV-2 PCR by NAA Not Detected (NotDetected)
[2021-08-19 14:24] LABS: Troponin I 0.016 ng/mL (< 0.028)
[2021-08-19] MEDS: Ferrous Sulfate 325 MG TAB PO SCH ×2 (14:39→16:21)
[2021-08-19] MEDS: hydrALAZINE 25 MG TAB PO SCH ×2 (14:39→20:06)
[2021-08-19] MEDS ORDERED: Carvedilol 3.125 MG TAB PO SCH (17:00)
[2021-08-19 20:01] VITALS: TEMP 97.5
[2021-08-19 20:07] VITALS: BP 194/90
[2021-08-19] MEDS ORDERED: Clopidogrel Bisulfate 75 MG TAB PO SCH (21:00)
[2021-08-19] MEDS ORDERED: Atorvastatin Calcium 40 MG TAB PO SCH (21:00)
== END 2021-08-19 21:10 ==
LOC: 2NO 18:02
PROVIDERS: ADMIT Hospitalist; ATTEND Internal Medicine
DX: R07.9 Chest pain, unspecified (principal); I10 Essential (primary) hypertension; I25.2 Old myocardial infarction; E78.00 Pure hypercholesterolemia, unspecified; E11.9 Type 2 diabetes mellitus without complications; F03.90 Unspecified dementia, unspecified severity, without behavioral disturbance, psychotic disturbance, mood disturbance, and anxiety; N40.0 Benign prostatic hyperplasia without lower urinary tract symptoms; F17.290 Nicotine dependence, other tobacco product, uncomplicated; I25.10 Atherosclerotic heart disease of native coronary artery without angina pectoris; N62 Hypertrophy of breast; Z79.4 Long term (current) use of insulin; Z79.82 Long term (current) use of aspirin; Z79.899 Other long term (current) drug therapy; Z86.73 Personal history of transient ischemic attack (TIA), and cerebral infarction without residual deficits
CPT/HCPCS: 71275; 78452; 80048; 82962; 84484 ×2; 85025; 85379; 93017; 96374; 96375; A9500; G0378 ×2; U0003; U0005; 36415; 36416; J0360; J1815; J7042

== ENCOUNTER 2022-03-28 18:16 | Inpatient (IN) | payer MEDICARE, MEDICAID ==
[2022-03-28] MEDS ORDERED: Senokot S 8.6-50 MG TAB PO PRN (18:37)
[2022-03-28] MEDS ORDERED: Ondansetron PF 4 MG/2 ML Vial IVP PRN (18:37)
[2022-03-28] MEDS ORDERED: Melatonin 3 MG TAB PO PRN (18:45)
[2022-03-28] MEDS ORDERED: Dextrose 5% in Water 1,000 ML IV PRN (18:52)
[2022-03-28] MEDS ORDERED: Dextrose 50% Abboject 50 ML SYRINGE SLOW IVP PRN (18:52)
[2022-03-28] MEDS ORDERED: Aspirin Chewable 81 MG TAB PO SCH (18:55)
[2022-03-28 19:08] VITALS: BMI 21.7
[2022-03-28] MEDS ORDERED: Morphine 2 MG/ML VIAL SLOW IVP PRN ×2 (19:47)
[2022-03-28] MEDS ORDERED: Nitroglycerin 0.4 MG TAB (25 Tab Bottle) SL PRN (19:47)
[2022-03-28] MEDS: Nicotine 21 MG PATCH TD SCH (20:28)
[2022-03-28] MEDS: Sodium Chloride 0.9% 1,000 ML IV SCH (20:29)
[2022-03-28 20:44] LABS: Troponin I Less than 0.010 ng/mL (< 0.028)
[2022-03-28] MEDS ORDERED: Pantoprazole 40 MG VIAL IVP SCH (21:00)
[2022-03-29] MEDS: Acetaminophen 325 MG TAB PO PRN (00:49)
[2022-03-29 05:15] LABS: #Basophils 0.1 thou/uL (0.0-0.2); #Eosinphils 0.3 thou/uL (0.0-0.7); #Monocytes 0.6 thou/uL (0.11-0.59); #Neutrophils 2.9 thou/uL (1.40-6.50); %Basophils 0.9 % (0.0-1.0); %Eosinophils 5.4 % (0.0-10.0); %Lymphocytes 34.2 % (21.0-51.0); %Monocytes 9.8 % (0.0-10.0); %Neutrophils 49.7 % (42.0-75.0); Mean Corpuscular HGB CONC 30.6 g/dL (32.0-36.0); Mean Corpuscular Volume 88.2 fL (78.0-98.0); Mean Platelet Volume 8.6 fL (7.4-10.4); Platelet Count 227 thou/uL (130-400); RBC Distribution Width 13.6 % (11.5-14.5); Red Blood Cell (RBC) Count 4.45 mill/uL (4.70-6.10); White Blood Cell (WBC) Count 5.9 thou/uL (4.8-10.8)
[2022-03-29 06:47] LABS: ALT (SGPT) 12 U/L (8-55); AST (SGOT) 12 U/L (5-34); Albumin 3.6 g/dL (3.4-4.8); Alkaline Phosphatase 85 U/L (40-110); Anion Gap 14 mmol/L (10-20); BUN (Urea Nitrogen) 16 mg/dL (8.4-25.7); Bilirubin, Total 0.2 mg/dL (0.2-1.2); Calc. Creatinine Clearance 86 mL/min (70-130); Calcium 8.8 mg/dL (7.8-10.44); Carbon Dioxide 23 mmol/L (23-31); Cardiac Risk 2.7 (Less than 4.5); Chloride 110 mmol/L (98-107); Cholesterol 114 mg/dl (< 200 Desired); Glucose 67 mg/dL (80-115); HDL Cholesterol 43 mg/dL (>60 Neg Risk); LDL Cholesterol, Calculated 61 mg/dL; Potassium 3.7 mmol/L (3.5-5.1); Protein, Total 6.6 g/dL (5.8-8.1); Sodium 143 mmol/L (136-145); Triglycerides 51 mg/dL (Less than 150)
[2022-03-29] MEDS: Pantoprazole 40 MG VIAL IVP SCH (09:20)
[2022-03-29] MEDS: Sodium Chloride 0.9% 1,000 ML IV SCH ×2 (09:20→20:15)
[2022-03-29] MEDS: HumaLOG 300 UNITS/3 ML VIAL SC PRN ×2 (11:21→22:10)
[2022-03-29] MEDS: hydrALAZINE 20 MG/ML VIAL SLOW IVP PRN (12:40)
[2022-03-29] MEDS: Carvedilol 3.125 MG TAB PO SCH (14:47)
[2022-03-29] MEDS: Nicotine 21 MG PATCH TD SCH (17:05)
[2022-03-29] MEDS: hydrALAZINE 25 MG TAB PO SCH (20:13)
[2022-03-30] MEDS: hydrALAZINE 20 MG/ML VIAL SLOW IVP PRN (00:45)
[2022-03-30 05:53] LABS: #Eosinphils 0.2 thou/uL (0.0-0.7); #Lymphocytes 2.2 thou/uL (1.20-3.40); #Monocytes 0.5 thou/uL (0.11-0.59); #Neutrophils 3.1 thou/uL (1.40-6.50); %Basophils 0.4 % (0.0-1.0); %Lymphocytes 36.4 % (21.0-51.0); %Monocytes 8.3 % (0.0-10.0); %Neutrophils 50.9 % (42.0-75.0); Hemoglobin 12.4 g/dL (14.0-18.0); Mean Corpuscular HGB CONC 31.4 g/dL (32.0-36.0); Mean Corpuscular Hemoglobin 27.4 pg (27.0-31.0); Mean Corpuscular Volume 87.2 fL (78.0-98.0); Mean Platelet Volume 8.9 fL (7.4-10.4); Platelet Count 241 thou/uL (130-400); RBC Distribution Width 13.5 % (11.5-14.5); Red Blood Cell (RBC) Count 4.54 mill/uL (4.70-6.10); White Blood Cell (WBC) Count 6.1 thou/uL (4.8-10.8)
[2022-03-30 06:40] LABS: Anion Gap 14 mmol/L (10-20); BUN (Urea Nitrogen) 12 mg/dL (8.4-25.7); Calc. Creatinine Clearance 80 mL/min (70-130); Calcium 8.6 mg/dL (7.8-10.44); Carbon Dioxide 23 mmol/L (23-31); Chloride 107 mmol/L (98-107); Estimated GFR 98; Glucose 146 mg/dL (80-115); Potassium 3.4 mmol/L (3.5-5.1); Sodium 141 mmol/L (136-145)
[2022-03-30] MEDS ORDERED: Carvedilol 6.25 MG TAB PO SCH (08:00)
[2022-03-30] MEDS: hydrALAZINE 25 MG TAB PO SCH (08:42)
[2022-03-30] MEDS: Tamsulosin HCl 0.4 MG CAP PO SCH (08:42)
[2022-03-30] MEDS: Pantoprazole 40 MG VIAL IVP SCH (08:42)
[2022-03-30] MEDS: Lisinopril 5 MG TAB PO SCH (08:42)
[2022-03-30] MEDS: Carvedilol 3.125 MG TAB PO SCH (09:16)
[2022-03-30] MEDS: Sodium Chloride 0.9% 1,000 ML IV SCH ×2 (09:52→23:16)
[2022-03-30] MEDS: HumaLOG 300 UNITS/3 ML VIAL SC PRN ×2 (11:49→17:52)
[2022-03-30] MEDS: Carvedilol 6.25 MG TAB PO SCH (17:53)
[2022-03-30] MEDS: Nicotine 21 MG PATCH TD SCH (17:53)
[2022-03-30] MEDS: Atorvastatin Calcium 40 MG TAB PO SCH (20:13)
[2022-03-31] MEDS: HumaLOG 300 UNITS/3 ML VIAL SC PRN ×3 (05:43→16:59)
[2022-03-31] MEDS: Clopidogrel Bisulfate 75 MG TAB PO SCH (08:12)
[2022-03-31] MEDS: Carvedilol 6.25 MG TAB PO SCH ×2 (08:12→16:56)
[2022-03-31] MEDS: Aspirin Chewable 81 MG TAB PO SCH (08:12)
[2022-03-31] MEDS: Lisinopril 5 MG TAB PO SCH (08:12)
[2022-03-31] MEDS: Tamsulosin HCl 0.4 MG CAP PO SCH (08:13)
[2022-03-31] MEDS: Sodium Chloride 0.9% 1,000 ML IV SCH (11:45)
[2022-03-31] MEDS: Nicotine 21 MG PATCH TD SCH (17:46)
[2022-03-31] MEDS: Atorvastatin Calcium 40 MG TAB PO SCH (20:56)
[2022-03-31] MEDS: hydrALAZINE 20 MG/ML VIAL SLOW IVP PRN (22:28)
[2022-03-31] MEDS: Labetalol HCl 100 MG/20 ML VIAL SLOW IVP PRN (23:30)
[2022-04-01] MEDS: hydrALAZINE 20 MG/ML VIAL SLOW IVP PRN ×2 (04:29→12:08)
[2022-04-01] MEDS ORDERED: Carvedilol 3.125 MG TAB PO SCH (08:00)
[2022-04-01] MEDS: Aspirin Chewable 81 MG TAB PO SCH (09:24)
[2022-04-01] MEDS: Tamsulosin HCl 0.4 MG CAP PO SCH (09:24)
[2022-04-01] MEDS: Clopidogrel Bisulfate 75 MG TAB PO SCH (09:24)
[2022-04-01] MEDS: Lisinopril 5 MG TAB PO SCH (09:24)
[2022-04-01] MEDS: HumaLOG 300 UNITS/3 ML VIAL SC PRN ×2 (11:58→18:24)
[2022-04-01] MEDS ORDERED: Non-Formulary Item 1 EACH (Acetaminophen [Tylenol] 325 MG Capsule) PO PRN (14:35)
[2022-04-01] MEDS ORDERED: hydrALAZINE 20 MG/ML VIAL SLOW IVP PRN (14:35)
[2022-04-01] MEDS ORDERED: Nitroglycerin 0.4 MG TAB (25 Tab Bottle) SL PRN (15:24)
[2022-04-01] MEDS: hydrALAZINE 25 MG TAB PO SCH ×2 (15:40→20:48)
[2022-04-01] MEDS: Nicotine 21 MG PATCH TD SCH (15:42)
[2022-04-01] MEDS: DULoxetine 30 MG CAP PO SCH (20:49)
[2022-04-01] MEDS: Atorvastatin Calcium 40 MG TAB PO SCH (20:49)
[2022-04-02] MEDS ORDERED: Lidocaine 1% (PF) 30 ML VIAL ONE ×2 (07:24→08:19)
[2022-04-02] MEDS ORDERED: Gentamicin 80 MG/2 ML VIAL ONE (07:24)
[2022-04-02] MEDS ORDERED: CEFAZOLIN 1 GM VIAL ONE (07:24)
[2022-04-02] MEDS ORDERED: ceFAZolin 2 GM/Dextrose 50 ML IVPB ONE (07:24)
[2022-04-02] MEDS ORDERED: Midazolam HCl 2 mg/2 ml Vial ONE (07:25)
[2022-04-02] MEDS ORDERED: Fentanyl 100 MCG/2 ML VIAL ONE (07:25)
[2022-04-02] MEDS: Acetaminophen 325 MG TAB PO PRN (10:00)
[2022-04-02] MEDS: Tamsulosin HCl 0.4 MG CAP PO SCH (10:01)
[2022-04-02] MEDS: Insulin Glargine 30 UNITS/0.3 ML VIAL SC SCH (10:02)
[2022-04-02] MEDS: Ferrous Sulfate 325 MG TAB PO SCH (10:02)
[2022-04-02] MEDS: hydrALAZINE 25 MG TAB PO SCH ×4 (10:02→20:04)
[2022-04-02] MEDS: Lisinopril 20 MG TAB PO SCH (10:02)
[2022-04-02] MEDS: Clopidogrel Bisulfate 75 MG TAB PO SCH (10:03)
[2022-04-02] MEDS: Aspirin Chewable 81 MG TAB PO SCH (10:03)
[2022-04-02 10:43] LABS: Anion Gap 11 mmol/L (10-20); BUN (Urea Nitrogen) 10 mg/dL (8.4-25.7); Calc. Creatinine Clearance 65 mL/min (70-130); Calcium 8.8 mg/dL (7.8-10.44); Carbon Dioxide 27 mmol/L (23-31); Chloride 105 mmol/L (98-107); Estimated GFR 89; Glucose 191 mg/dL (80-115); Potassium 3.7 mmol/L (3.5-5.1); Sodium 139 mmol/L (136-145)
[2022-04-02] MEDS: HumaLOG 300 UNITS/3 ML VIAL SC PRN ×2 (12:46→17:10)
[2022-04-02] MEDS: Nicotine 21 MG PATCH TD SCH (17:11)
[2022-04-02] MEDS: DULoxetine 30 MG CAP PO SCH (20:04)
[2022-04-02] MEDS: Atorvastatin Calcium 40 MG TAB PO SCH (20:04)
[2022-04-03] MEDS: Aspirin Chewable 81 MG TAB PO SCH (09:30)
[2022-04-03] MEDS: Ferrous Sulfate 325 MG TAB PO SCH (09:31)
[2022-04-03] MEDS: hydrALAZINE 25 MG TAB PO SCH ×3 (09:32→21:19)
[2022-04-03] MEDS: Insulin Glargine 30 UNITS/0.3 ML VIAL SC SCH (09:33)
[2022-04-03] MEDS: Lisinopril 20 MG TAB PO SCH ×2 (09:33→20:44)
[2022-04-03] MEDS: Tamsulosin HCl 0.4 MG CAP PO SCH (09:33)
[2022-04-03] MEDS: Clopidogrel Bisulfate 75 MG TAB PO SCH (09:33)
[2022-04-03] MEDS: HumaLOG 300 UNITS/3 ML VIAL SC PRN ×2 (12:28→21:00)
[2022-04-03] MEDS: Nicotine 21 MG PATCH TD SCH (17:20)
[2022-04-03] MEDS: Cephalexin 250 MG CAP PO SCH (20:44)
[2022-04-03] MEDS: Atorvastatin Calcium 40 MG TAB PO SCH (20:44)
[2022-04-03] MEDS: DULoxetine 30 MG CAP PO SCH (20:44)
[2022-04-03] MEDS: Labetalol HCl 100 MG/20 ML VIAL SLOW IVP PRN (21:20)
[2022-04-04] MEDS: HumaLOG 300 UNITS/3 ML VIAL SC PRN (06:40)
[2022-04-04] MEDS ORDERED: Amlodipine 5 MG TAB PO SCH (09:00)
[2022-04-04] MEDS: Ferrous Sulfate 325 MG TAB PO SCH (09:50)
[2022-04-04] MEDS: Aspirin Chewable 81 MG TAB PO SCH (09:50)
[2022-04-04] MEDS: Cephalexin 250 MG CAP PO SCH (09:51)
[2022-04-04] MEDS: hydrALAZINE 25 MG TAB PO SCH (09:52)
[2022-04-04] MEDS: Lisinopril 20 MG TAB PO SCH (09:52)
[2022-04-04] MEDS: Tamsulosin HCl 0.4 MG CAP PO SCH (09:52)
[2022-04-04] MEDS: Clopidogrel Bisulfate 75 MG TAB PO SCH (09:52)
[2022-04-04] MEDS: Insulin Glargine 30 UNITS/0.3 ML VIAL SC SCH (09:53)
[2022-04-04 12:19] VITALS: BP 146/65; TEMP 98.6
== END 2022-04-04 14:56 | DRG 981 ==
LOC: NEURO 18:16 → OBSVTOIN 03-29 15:50
PROVIDERS: ADMIT Internal Medicine; ATTEND Internal Medicine
PROC: 0JH606Z Insertion of Pacemaker, Dual Chamber into Chest Subcutaneous Tissue and Fascia, Open Approach (ICD-10-PCS; principal; 2022-04-02)
PROC: 02H60JZ Insertion of Pacemaker Lead into Right Atrium, Open Approach (ICD-10-PCS; 2022-04-02)
PROC: 02HK0JZ Insertion of Pacemaker Lead into Right Ventricle, Open Approach (ICD-10-PCS; 2022-04-02)
DX: I63.50 Cerebral infarction due to unspecified occlusion or stenosis of unspecified cerebral artery (principal); G93.41 Metabolic encephalopathy; L76.32 Postprocedural hematoma of skin and subcutaneous tissue following other procedure; I49.5 Sick sinus syndrome; Z20.822 Contact with and (suspected) exposure to COVID-19; I10 Essential (primary) hypertension; N40.0 Benign prostatic hyperplasia without lower urinary tract symptoms; E78.5 Hyperlipidemia, unspecified; F20.9 Schizophrenia, unspecified; F41.9 Anxiety disorder, unspecified; F17.210 Nicotine dependence, cigarettes, uncomplicated; E11.65 Type 2 diabetes mellitus with hyperglycemia; F01.50 Vascular dementia, unspecified severity, without behavioral disturbance, psychotic disturbance, mood disturbance, and anxiety; R13.12 Dysphagia, oropharyngeal phase; G93.89 Other specified disorders of brain; I65.21 Occlusion and stenosis of right carotid artery; E78.00 Pure hypercholesterolemia, unspecified; I25.2 Old myocardial infarction; Z79.899 Other long term (current) drug therapy; Z79.4 Long term (current) use of insulin; Z79.82 Long term (current) use of aspirin; Z86.16 Personal history of COVID-19
CPT/HCPCS: 33249; 36415; 36416; 70450; 70551; 71045; 80048; 80053; 80061; 85025; 93005; 93010; 93306; 93880; 95816; 95819; 95957; 96374; 96375; 96376; 99152; 99153; C1785; C1898; C9113; G0378; J0360; J0690; J1580; J1815; J2001; J2250; J3010; J7050; U0003; U0005

== ENCOUNTER 2023-10-01 08:04 | Observation (INO) | payer MEDICARE, MEDICAID ==
[2023-10-01 09:55] LABS: #Basophils 0.1 thou/uL (0.0-0.2); #Eosinphils 0.2 thou/uL (0.0-0.7); #Monocytes 0.5 thou/uL (0.11-0.59); #Neutrophils 2.6 thou/uL (1.40-6.50); %Basophils 0.8 % (0.0-1.0); %Eosinophils 3.8 % (0.0-10.0); %Lymphocytes 42.7 % (21.0-51.0); %Monocytes 8.9 % (0.0-10.0); %Neutrophils 43.6 % (42.0-75.0); Hematocrit 42.5 % (42.0-52.0); Hemoglobin 13.2 g/dL (14.0-18.0); Mean Corpuscular HGB CONC 31.1 g/dL (32.0-36.0); Mean Corpuscular Hemoglobin 26.3 pg (27.0-31.0); Mean Corpuscular Volume 84.7 fl (78.0-98.0); Mean Platelet Volume 11.1 fL (7.4-10.4); Platelet Count 301 10x3/uL (130-400); RBC Distribution Width 15.6 % (11.5-14.5); Red Blood Cell (RBC) Count 5.02 mill/uL (4.70-6.10); White Blood Cell (WBC) Count 6.1 10x3/uL (4.8-10.8)
[2023-10-01 10:18] LABS: ALT (SGPT) 15 U/L (8-55); AST (SGOT) 11 U/L (5-34); Albumin 3.6 g/dL (3.4-4.8); Alkaline Phosphatase 89 U/L (40-110); Anion Gap 11 mmol/L (10-20); BUN (Urea Nitrogen) 20 mg/dL (8.4-25.7); Bilirubin, Total 0.4 mg/dL (0.2-1.2); Calc. Creatinine Clearance 0 mL/min (70-130); Calcium 8.2 mg/dL (7.8-10.44); Carbon Dioxide 28 mmol/L (23-31); Chloride 106 mmol/L (98-107); Estimated GFR 93; Glucose 141 mg/dL (83-110); Lipase 79 U/L (8-78); Potassium 3.6 mmol/L (3.5-5.1); Protein, Total 6.6 g/dL (5.8-8.1); Sodium 141 mmol/L (136-145)
[2023-10-01 11:15] LABS: Acetaminophen Less than 10 mcg/mL (10.0-30.0); Alcohol Less than 10.0 mg/dL (Less than 10); Salicylate Less than 8.0 mg/dL (15.0-30.0)
[2023-10-01] MEDS ORDERED: Melatonin 3 MG TAB PO PRN (11:36)
[2023-10-01] MEDS ORDERED: Senokot S 8.6-50 MG TAB PO PRN (11:36)
[2023-10-01] MEDS ORDERED: HumaLOG 300 UNITS/3 ML VIAL SC PRN ×2 (11:38)
[2023-10-01] MEDS ORDERED: Ondansetron PF 4 MG/2 ML Vial IVP PRN (11:38)
[2023-10-01] MEDS ORDERED: Glucagon 1 MG/ML KIT IM PRN (11:38)
[2023-10-01] MEDS ORDERED: Dextrose 50% Abboject 50 ML SYRINGE SLOW IVP PRN (11:38)
[2023-10-01] MEDS ORDERED: Acetaminophen 325 MG TAB PO PRN (11:38)
[2023-10-01] MEDS ORDERED: Dextrose 5% in Water 1,000 ML IV PRN (11:38)
[2023-10-01] MEDS ORDERED: Nitroglycerin 0.4 MG TAB (25 Tab Bottle) SL PRN (12:55)
[2023-10-01 13:26] LABS: Troponin I Less than 0.010 ng/mL (< 0.028)
[2023-10-01 14:58] VITALS: BMI 23.1
[2023-10-01 16:03] LABS: Troponin I 0.011 ng/mL (< 0.028)
[2023-10-01] MEDS: Carvedilol 6.25 MG TAB PO SCH (17:47)
[2023-10-01] MEDS: Ferrous Sulfate 325 MG TAB PO SCH (17:47)
[2023-10-01] MEDS: hydrALAZINE 25 MG TAB PO SCH (20:37)
[2023-10-01] MEDS ORDERED: DULoxetine 30 MG CAP PO SCH (21:00)
[2023-10-01] MEDS ORDERED: Atorvastatin Calcium 40 MG TAB PO SCH (21:00)
[2023-10-02 04:47] LABS: #Eosinphils 0.2 thou/uL (0.0-0.7); #Monocytes 0.5 thou/uL (0.11-0.59); #Neutrophils 3.1 thou/uL (1.40-6.50); %Basophils 0.6 % (0.0-1.0); %Eosinophils 3.1 % (0.0-10.0); %Lymphocytes 38.5 % (21.0-51.0); %Monocytes 7.4 % (0.0-10.0); %Neutrophils 50.2 % (42.0-75.0); Hematocrit 42.2 % (42.0-52.0); Hemoglobin 13.2 g/dL (14.0-18.0); Mean Corpuscular HGB CONC 31.3 g/dL (32.0-36.0); Mean Corpuscular Hemoglobin 25.9 pg (27.0-31.0); Mean Corpuscular Volume 82.7 fl (78.0-98.0); Mean Platelet Volume 10.7 fL (7.4-10.4); Platelet Count 299 10x3/uL (130-400); RBC Distribution Width 15.4 % (11.5-14.5); White Blood Cell (WBC) Count 6.2 10x3/uL (4.8-10.8)
[2023-10-02 05:07] LABS: Anion Gap 9 mmol/L (10-20); BUN (Urea Nitrogen) 15 mg/dL (8.4-25.7); Calc. Creatinine Clearance 68 mL/min (70-130); Calcium 8.4 mg/dL (7.8-10.44); Carbon Dioxide 26 mmol/L (23-31); Chloride 107 mmol/L (98-107); Estimated GFR 93; Glucose 161 mg/dL (83-110); Potassium 4.2 mmol/L (3.5-5.1); Sodium 138 mmol/L (136-145)
[2023-10-02] MEDS: Carvedilol 6.25 MG TAB PO SCH ×3 (08:00→16:35)
[2023-10-02] MEDS: Ferrous Sulfate 325 MG TAB PO SCH ×3 (08:00→16:36)
[2023-10-02] MEDS: hydrALAZINE 25 MG TAB PO SCH (08:00)
[2023-10-02] MEDS ORDERED: Amlodipine 5 MG TAB PO SCH (09:00)
[2023-10-02] MEDS ORDERED: Lisinopril 5 MG TAB PO SCH (09:00)
[2023-10-02] MEDS ORDERED: Tamsulosin HCl 0.4 MG CAP PO SCH (09:00)
[2023-10-02] MEDS ORDERED: Clopidogrel Bisulfate 75 MG TAB PO SCH (09:00)
[2023-10-02] MEDS ORDERED: Aspirin Chewable 81 MG TAB PO SCH (09:00)
[2023-10-02] MEDS ORDERED: Regadenoson 0.4 MG/5 ML SYRINGE ONE (09:57)
[2023-10-02 16:20] VITALS: TEMP 97.2
[2023-10-02 16:36] VITALS: BP 123/63
== END 2023-10-02 18:45 ==
LOC: ERS 08:04 → ERHOLD 10:44 → 2NO 14:40
PROVIDERS: ADMIT Family Medicine; ATTEND Family Medicine
DX: I25.10 Atherosclerotic heart disease of native coronary artery without angina pectoris (principal); E11.9 Type 2 diabetes mellitus without complications; E78.5 Hyperlipidemia, unspecified; F01.50 Vascular dementia, unspecified severity, without behavioral disturbance, psychotic disturbance, mood disturbance, and anxiety; F20.9 Schizophrenia, unspecified; I10 Essential (primary) hypertension; Z79.82 Long term (current) use of aspirin; Z79.4 Long term (current) use of insulin; Z79.899 Other long term (current) drug therapy; Z95.0 Presence of cardiac pacemaker; Z98.890 Other specified postprocedural states
CPT/HCPCS: 71045; 78452; 80048; 80307; 82962 ×2; 83690; 83880; 84484; 85025; 93005; 93017; A9502; G0378 ×3; J2785; 36415; 36416; 84443; J1815

== ENCOUNTER 2023-11-04 20:33 | Inpatient (IN) | payer MEDICARE, MEDICAID ==
[~2023-11-04 20:33] MED LIST changes: -Iopamidol-370 76% 500 ML 1 ML ONE; +Iopamidol-370 76% 500 ML MDV (1 ML CHARGE) ONE
[2023-11-04 21:09] LABS: #Eosinphils 0.1 thou/uL (0.0-0.7); #Monocytes 1.1 thou/uL (0.11-0.59); #Neutrophils 9.3 thou/uL (1.40-6.50); %Basophils 0.3 % (0.0-1.0); %Eosinophils 0.7 % (0.0-10.0); %Lymphocytes 13.6 % (21.0-51.0); %Monocytes 8.8 % (0.0-10.0); %Neutrophils 76.2 % (42.0-75.0); Hematocrit 47.6 % (42.0-52.0); Hemoglobin 14.6 g/dL (14.0-18.0); Mean Corpuscular HGB CONC 30.7 g/dL (32.0-36.0); Mean Corpuscular Hemoglobin 26.4 pg (27.0-31.0); Mean Corpuscular Volume 86.1 fl (78.0-98.0); Mean Platelet Volume 10.3 fL (7.4-10.4); Platelet Count 237 10x3/uL (130-400); RBC Distribution Width 15.9 % (11.5-14.5); Red Blood Cell (RBC) Count 5.53 mill/uL (4.70-6.10); White Blood Cell (WBC) Count 12.2 10x3/uL (4.8-10.8)
[2023-11-04] MEDS ORDERED: Aspirin Chewable 81 MG TAB ONE ×2 (21:12→21:15)
[2023-11-04 21:31] LABS: ALT (SGPT) Less than 7 U/L (8-55); AST (SGOT) 9 U/L (5-34); Albumin 3.5 g/dL (3.4-4.8); Alkaline Phosphatase 80 U/L (40-110); Anion Gap 10 mmol/L (10-20); BUN (Urea Nitrogen) 15 mg/dL (8.4-25.7); Bilirubin, Total 0.4 mg/dL (0.2-1.2); CK (CPK) 141 U/L (30-200); Calc. Creatinine Clearance 0 mL/min (70-130); Calcium 8.6 mg/dL (7.8-10.44); Carbon Dioxide 23 mmol/L (23-31); Chloride 108 mmol/L (98-107); Estimated GFR 94; Globulin 2.9 g/dL (2.4-3.5); Glucose 148 mg/dL (83-110); Protein, Total 6.4 g/dL (5.8-8.1); Sodium 137 mmol/L (136-145)
[2023-11-04 21:43] LABS: PTT 29.1 sec (22.9-36.1); Prothrombin Time 13.3 sec (12.0-14.7)
[2023-11-04] MEDS ORDERED: Acetaminophen 325 MG TAB PO PRN (22:45)
[2023-11-04] MEDS ORDERED: Calcium Carbonate 500 MG ChewTAB PO PRN (22:45)
[2023-11-04] MEDS ORDERED: Ondansetron ODT 4 MG TAB PO PRN (22:45)
[2023-11-05] VITALS: BMI 21.2
[2023-11-05 00:33] LABS: Hemoglobin A1c 8.4 % (4.0-6.0)
[2023-11-05] MEDS: MINERAL OIL/WHITE PETROLATUM 3.5 GM TUBE L EYE SCH (02:57)
[2023-11-05 04:01] LABS: #Basophils 0.1 thou/uL (0.0-0.2); #Eosinphils 0.2 thou/uL (0.0-0.7); #Monocytes 1.2 thou/uL (0.11-0.59); #Neutrophils 7.7 thou/uL (1.40-6.50); %Basophils 0.6 % (0.0-1.0); %Eosinophils 1.4 % (0.0-10.0); %Lymphocytes 19.2 % (21.0-51.0); %Monocytes 10.8 % (0.0-10.0); %Neutrophils 67.6 % (42.0-75.0); Hematocrit 45.8 % (42.0-52.0); Hemoglobin 14.5 g/dL (14.0-18.0); Mean Corpuscular HGB CONC 31.7 g/dL (32.0-36.0); Mean Corpuscular Hemoglobin 26.7 pg (27.0-31.0); Mean Corpuscular Volume 84.2 fl (78.0-98.0); Mean Platelet Volume 10.1 fL (7.4-10.4); Platelet Count 285 10x3/uL (130-400); RBC Distribution Width 15.9 % (11.5-14.5); Red Blood Cell (RBC) Count 5.44 mill/uL (4.70-6.10); White Blood Cell (WBC) Count 11.4 10x3/uL (4.8-10.8)
[2023-11-05 04:24] LABS: Anion Gap 14 mmol/L (10-20); BUN (Urea Nitrogen) 15 mg/dL (8.4-25.7); Calc. Creatinine Clearance 79 mL/min (70-130); Carbon Dioxide 23 mmol/L (23-31); Chloride 108 mmol/L (98-107); Estimated GFR 96; Glucose 82 mg/dL (83-110); Potassium 3.7 mmol/L (3.5-5.1); Sodium 141 mmol/L (136-145)
[2023-11-05] MEDS: predniSONE 20 MG TAB PO SCH (08:21)
[2023-11-05] MEDS: Carvedilol 3.125 MG TAB PO SCH (08:21)
[2023-11-05] MEDS: Aspirin Chewable 81 MG TAB PO SCH (08:22)
[2023-11-05] MEDS: Amlodipine 5 MG TAB PO SCH (08:22)
[2023-11-05] MEDS: Lisinopril 5 MG TAB PO SCH (08:22)
[2023-11-05] MEDS: hydrALAZINE 25 MG TAB PO SCH (08:22)
[2023-11-05] MEDS: Famotidine 20 MG TAB PO SCH (08:22)
[2023-11-05] MEDS ORDERED: Aspirin 81 mg Enteric Coated Tablet PO SCH (09:00)
[2023-11-05] MEDS: Artificial Tear Sol 15 ML BOT L EYE SCH (09:09)
[2023-11-05] MEDS ORDERED: Glucagon 1 MG/ML KIT IM PRN (12:17)
[2023-11-05] MEDS ORDERED: Dextrose 50% Abboject 50 ML SYRINGE SLOW IVP PRN (12:17)
[2023-11-05] MEDS ORDERED: Dextrose 5% in Water 1,000 ML IV PRN (12:17)
[2023-11-05] MEDS: Insulin Glargine 30 UNITS/0.3 ML VIAL SC SCH (12:50)
[2023-11-05] MEDS: HumaLOG 300 UNITS/3 ML VIAL SC PRN (12:51)
[2023-11-05] MEDS: Atorvastatin Calcium 40 MG TAB PO SCH (20:17)
[2023-11-05] MEDS: Melatonin 3 MG TAB PO PRN (20:18)
[2023-11-05] MEDS: valACYclovir 500 MG TAB PO SCH (20:18)
[2023-11-05] MEDS: DULoxetine 60 MG CAP PO SCH (20:18)
[2023-11-06] MEDS: HumaLOG 300 UNITS/3 ML VIAL SC PRN (01:12)
[2023-11-06] MEDS ORDERED: E-Z-HD 98% W/W 340GM BOT (x-ray ONLY) ONE (10:08)
[2023-11-07 05:10] LABS: #Eosinphils 0.2 thou/uL (0.0-0.7); #Monocytes 0.9 thou/uL (0.11-0.59); #Neutrophils 6.8 thou/uL (1.40-6.50); %Basophils 0.3 % (0.0-1.0); %Eosinophils 1.6 % (0.0-10.0); %Lymphocytes 27.5 % (21.0-51.0); %Monocytes 8.1 % (0.0-10.0); %Neutrophils 62.1 % (42.0-75.0); Hematocrit 42.9 % (42.0-52.0); Hemoglobin 13.6 g/dL (14.0-18.0); Mean Corpuscular HGB CONC 31.7 g/dL (32.0-36.0); Mean Corpuscular Hemoglobin 26.3 pg (27.0-31.0); Mean Platelet Volume 10.9 fL (7.4-10.4); Platelet Count 322 10x3/uL (130-400); RBC Distribution Width 15.9 % (11.5-14.5); Red Blood Cell (RBC) Count 5.17 mill/uL (4.70-6.10)
[2023-11-07 05:32] LABS: Anion Gap 11 mmol/L (10-20); BUN (Urea Nitrogen) 29 mg/dL (8.4-25.7); Calc. Creatinine Clearance 63 mL/min (70-130); Calcium 8.9 mg/dL (7.8-10.44); Carbon Dioxide 25 mmol/L (23-31); Chloride 105 mmol/L (98-107); Estimated GFR 88; Glucose 116 mg/dL (83-110); Potassium 3.6 mmol/L (3.5-5.1); Sodium 137 mmol/L (136-145)
[2023-11-07 15:28] VITALS: BP 135/81; TEMP 98.8
== END 2023-11-07 18:57 | DRG 74 ==
LOC: ERS 20:33 → 2SE 22:45 → OBSVTOIN 11-06 09:43
PROVIDERS: ADMIT Student in an Organized Health Care Education/Training Program; ATTEND Internal Medicine
DX: G51.0 Bell's palsy (principal); F03.94 Unspecified dementia, unspecified severity, with anxiety; I65.22 Occlusion and stenosis of left carotid artery; I65.23 Occlusion and stenosis of bilateral carotid arteries; F03.90 Unspecified dementia, unspecified severity, without behavioral disturbance, psychotic disturbance, mood disturbance, and anxiety; E11.9 Type 2 diabetes mellitus without complications; I10 Essential (primary) hypertension; E78.5 Hyperlipidemia, unspecified; I25.10 Atherosclerotic heart disease of native coronary artery without angina pectoris; N40.0 Benign prostatic hyperplasia without lower urinary tract symptoms; R13.10 Dysphagia, unspecified; Z79.899 Other long term (current) drug therapy; Z79.82 Long term (current) use of aspirin
CPT/HCPCS: 36415; 36416; 70450; 70496; 70498; 71045; 74230; 80048; 80053; 80061; 82550; 83036; 83605; 85025; 85610; 85730; 93005; G0378; J1815; J7512; Q9967

== ENCOUNTER 2024-07-22 22:46 | Observation (INO) | payer MEDICARE, MEDICAID ==
[2024-07-22 23:32] VITALS: BMI 21.5
[2024-07-23] MEDS ORDERED: Ondansetron PF 4 MG/2 ML Vial IVP PRN (00:26)
[2024-07-23] MEDS ORDERED: Insulin Lispro 100 UNIT/ML 10 ML VIAL SC PRN ×2 (00:26)
[2024-07-23] MEDS ORDERED: Dextrose 50% Abboject 50 ML SYRINGE SLOW IVP PRN (00:26)
[2024-07-23] MEDS ORDERED: Ondansetron ODT 4 MG TAB PO PRN (00:26)
[2024-07-23] MEDS ORDERED: Acetaminophen 325 MG TAB PO PRN (00:26)
[2024-07-23] MEDS ORDERED: Glucagon 1 MG/ML KIT IM PRN (00:26)
[2024-07-23] MEDS ORDERED: Dextrose 5% in Water 1,000 ML IV PRN (00:26)
[2024-07-23 00:59] LABS: #Basophils 0.05 10x3/uL (0.0-0.2); %Basophils 0.8 % (0.0-1.0); %Eosinophils 3.7 % (0.0-10.0); %Lymphocytes 39.4 % (21.0-51.0); %Monocytes 10.8 % (0.0-10.0); Hematocrit 45.7 % (42.0-52.0); Hemoglobin 14.6 g/dL (14.0-18.0); Mean Corpuscular HGB CONC 31.9 g/dL (32.0-36.0); Mean Corpuscular Hemoglobin 26.5 pg (27.0-31.0); Mean Corpuscular Volume 82.9 fL (78.0-98.0); Mean Platelet Volume 10.2 fL (7.4-10.4); Platelet Count 284 10x3/uL (130-400); RBC Distribution Width 15.2 % (11.5-14.5); Red Blood Cell (RBC) Count 5.51 mill/uL (4.70-6.10)
[2024-07-23 01:13] LABS: Anion Gap 13 mmol/L (10-20); BUN (Urea Nitrogen) 17 mg/dL (8.4-25.7); Calc. Creatinine Clearance 70 mL/min (70-130); Calcium 8.8 mg/dL (7.8-10.44); Carbon Dioxide 26 mmol/L (23-31); Chloride 108 mmol/L (98-107); Estimated GFR 92; Glucose 60 mg/dL (83-110); Potassium 3.6 mmol/L (3.5-5.1); Sodium 143 mmol/L (136-145)
[2024-07-23 01:15] LABS: Troponin I 0.011 ng/mL (< 0.028)
[2024-07-23] MEDS: Nitroglycerin 2% Ointment 1 INCH/1 GM Packet TOP SCH (02:58)
[2024-07-23] MEDS ORDERED: Melatonin 3 MG TAB PO PRN (04:07)
[2024-07-23 05:27] LABS: Cardiac Risk 3.3 (Less than 4.5)
[2024-07-23] MEDS ORDERED: Aspirin Chewable 81 MG TAB PO SCH (09:00)
[2024-07-23] MEDS ORDERED: FLU (Fluad Triv) TS24-25 (65UP)/MF59C/PF 45 MCG/0.5 ML Syringe IM ONE (09:00)
[2024-07-23] MEDS: Famotidine 20 MG TAB PO SCH (09:25)
[2024-07-23] MEDS: Lisinopril 5 MG TAB PO SCH (09:25)
[2024-07-23] MEDS: Amlodipine 5 MG TAB PO SCH (09:25)
[2024-07-23] MEDS: hydrALAZINE 25 MG TAB PO SCH (09:26)
[2024-07-23] MEDS: Enoxaparin 40 MG (0.4 mL) SYRINGE SC SCH (09:26)
[2024-07-23] MEDS: Carvedilol 3.125 MG TAB PO SCH (09:26)
[2024-07-23] MEDS: Insulin Glargine 30 UNITS/0.3 ML VIAL SC SCH (09:28)
[2024-07-23] MEDS: DULoxetine 60 MG CAP PO SCH (21:05)
[2024-07-23] MEDS: Atorvastatin Calcium 40 MG TAB PO SCH (21:05)
[2024-07-24 04:20] LABS: #Basophils 0.05 10x3/uL (0.0-0.2); %Basophils 0.9 % (0.0-1.0); %Lymphocytes 47.3 % (21.0-51.0); %Monocytes 10.1 % (0.0-10.0); %Neutrophils 37.5 % (42.0-75.0); Hematocrit 40.6 % (42.0-52.0); Hemoglobin 12.9 g/dL (14.0-18.0); Mean Corpuscular HGB CONC 31.8 g/dL (32.0-36.0); Mean Corpuscular Hemoglobin 26.2 pg (27.0-31.0); Mean Corpuscular Volume 82.5 fL (78.0-98.0); Mean Platelet Volume 10.5 fL (7.4-10.4); Platelet Count 284 10x3/uL (130-400); RBC Distribution Width 15.3 % (11.5-14.5); Red Blood Cell (RBC) Count 4.92 mill/uL (4.70-6.10)
[2024-07-24 04:35] LABS: Anion Gap 9 mmol/L (10-20); BUN (Urea Nitrogen) 20 mg/dL (8.4-25.7); Calc. Creatinine Clearance 63 mL/min (70-130); Calcium 8.5 mg/dL (7.8-10.44); Carbon Dioxide 26 mmol/L (23-31); Chloride 110 mmol/L (98-107); Estimated GFR 82; Glucose 62 mg/dL (83-110); Potassium 3.6 mmol/L (3.5-5.1); Sodium 141 mmol/L (136-145)
[2024-07-24 12:46] VITALS: BP 114/58; TEMP 97.6
== END 2024-07-24 13:45 ==
LOC: 2NO 22:46
PROVIDERS: ADMIT Physician Assistant; ATTEND Family Medicine
DX: R07.89 Other chest pain (principal); I25.10 Atherosclerotic heart disease of native coronary artery without angina pectoris; E11.9 Type 2 diabetes mellitus without complications; I10 Essential (primary) hypertension; E78.5 Hyperlipidemia, unspecified; F01.518 Vascular dementia, unspecified severity, with other behavioral disturbance; F01.54 Vascular dementia, unspecified severity, with anxiety; F20.9 Schizophrenia, unspecified; F32.A Depression, unspecified; Z86.73 Personal history of transient ischemic attack (TIA), and cerebral infarction without residual deficits; Z79.899 Other long term (current) drug therapy
CPT/HCPCS: 80048 ×2; 80061; 82962 ×2; 84484 ×2; 85025 ×2; 94760; J1650 ×2; 36415; 36416; J1815

== ENCOUNTER 2025-07-11 23:20 | Inpatient (IN) | payer MEDICARE, MEDICAID ==
[2025-07-11 23:48] LABS: #Basophils 0.06 10x3/uL (0.0-0.2); #Eosinophils 0.55 10x3/uL (0.0-0.7); #Monocytes 0.65 10x3/uL (0.11-0.59); #Neutrophils 6.71 10x3/uL (1.40-6.50); %Basophils 0.6 % (0.0-1.0); %Eosinophils 5.9 % (0.0-10.0); %Lymphocytes 14.5 % (21.0-51.0); %Monocytes 7.0 % (0.0-10.0); %Neutrophils 71.8 % (42.0-75.0); Hematocrit 48.5 % (42.0-52.0); Hemoglobin 15.0 g/dL (14.0-18.0); Mean Corpuscular Hemoglobin 25.6 pg (27.0-31.0); Mean Corpuscular Volume 82.6 fL (78.0-98.0); Platelet Count 240 10x3/uL (130-400); Red Blood Cell (RBC) Count 5.87 mill/uL (4.70-6.10); White Blood Cell (WBC) Count 9.35 10x3/uL (4.8-10.8)
[2025-07-12 00:13] LABS: ALT (SGPT) 12 U/L (Less than 45); AST (SGOT) 26 U/L (11-34); Albumin 3.8 g/dL (3.1-4.5); Alkaline Phosphatase 108 U/L (40-110); Anion Gap 14 mmol/L (10-20); BUN (Urea Nitrogen) 14 mg/dL (8.4-25.7); Bilirubin, Total 0.4 mg/dL (0.3-1.2); Calc. Creatinine Clearance 0 mL/min (70-130); Calcium 8.9 mg/dL (7.8-10.44); Carbon Dioxide 24 mmol/L (23-31); Chloride 104 mmol/L (98-107); Globulin 3.4 g/dL (2.4-3.5); Glucose 216 mg/dL (83-110); Potassium 4.9 mmol/L (3.5-5.1); Sodium 137 mmol/L (136-145)
[2025-07-12] MEDS ORDERED: Glucagon 1 MG/ML KIT IM PRN (01:53)
[2025-07-12] MEDS ORDERED: Ondansetron PF 4 MG/2 ML Vial IVP PRN (01:53)
[2025-07-12] MEDS ORDERED: Dextrose 50% Abboject 50 ML SYRINGE SLOW IVP PRN (01:53)
[2025-07-12 02:49] LABS: INR-International Normal Ratio 1.0; Prothrombin Time 13.3 sec (12.0-14.7)
[2025-07-12 02:50] LABS: PTT 29.5 sec (22.9-36.1)
[2025-07-12 03:38] VITALS: BMI 22.1
[2025-07-12 06:46] LABS: #Basophils 0.05 10x3/uL (0.0-0.2); #Eosinophils 0.34 10x3/uL (0.0-0.7); #Monocytes 0.92 10x3/uL (0.11-0.59); #Neutrophils 7.71 10x3/uL (1.40-6.50); %Basophils 0.5 % (0.0-1.0); %Eosinophils 3.3 % (0.0-10.0); %Lymphocytes 13.1 % (21.0-51.0); %Monocytes 8.8 % (0.0-10.0); %Neutrophils 74.1 % (42.0-75.0); Hematocrit 45.1 % (42.0-52.0); Hemoglobin 14.1 g/dL (14.0-18.0); Mean Corpuscular Hemoglobin 25.8 pg (27.0-31.0); Mean Corpuscular Volume 82.4 fL (78.0-98.0); Platelet Count 219 10x3/uL (130-400); Red Blood Cell (RBC) Count 5.47 mill/uL (4.70-6.10); White Blood Cell (WBC) Count 10.40 10x3/uL (4.8-10.8)
[2025-07-12 07:00] LABS: ALT (SGPT) 8 U/L (Less than 45); AST (SGOT) 17 U/L (11-34); Albumin 3.6 g/dL (3.1-4.5); Alkaline Phosphatase 91 U/L (40-110); Anion Gap 14 mmol/L (10-20); BUN (Urea Nitrogen) 15 mg/dL (8.4-25.7); Bilirubin, Total 0.5 mg/dL (0.3-1.2); Calc. Creatinine Clearance 64 mL/min (70-130); Calcium 8.8 mg/dL (7.8-10.44); Carbon Dioxide 25 mmol/L (23-31); Chloride 103 mmol/L (98-107); Globulin 3.1 g/dL (2.4-3.5); Glucose 208 mg/dL (83-110); Potassium 4.5 mmol/L (3.5-5.1); Sodium 137 mmol/L (136-145)
[2025-07-12] MEDS ORDERED: Non-Formulary Item 1 EACH (Insulin Aspart [Insulin Aspart] 100 UNIT/ML Vial) SC SCH (11:30)
[2025-07-12] MEDS: Insulin Glargine 30 UNITS/0.3 ML VIAL SC SCH (11:51)
[2025-07-12] MEDS: Famotidine 20 MG TAB PO SCH (11:51)
[2025-07-12] MEDS: Senokot S 8.6-50 MG TAB PO SCH (11:52)
[2025-07-12] MEDS: Carvedilol 3.125 MG TAB PO SCH ×2 (16:41→20:20)
[2025-07-13 06:35] LABS: #Basophils 0.08 10x3/uL (0.0-0.2); #Eosinophils 1.10 10x3/uL (0.0-0.7); #Monocytes 1.16 10x3/uL (0.11-0.59); #Neutrophils 6.50 10x3/uL (1.40-6.50); %Basophils 0.8 % (0.0-1.0); %Eosinophils 10.8 % (0.0-10.0); %Lymphocytes 13.0 % (21.0-51.0); %Monocytes 11.4 % (0.0-10.0); %Neutrophils 63.7 % (42.0-75.0); Hematocrit 44.4 % (42.0-52.0); Hemoglobin 13.9 g/dL (14.0-18.0); Mean Corpuscular Hemoglobin 25.7 pg (27.0-31.0); Mean Corpuscular Volume 82.2 fL (78.0-98.0); Platelet Count 219 10x3/uL (130-400); Red Blood Cell (RBC) Count 5.40 mill/uL (4.70-6.10); White Blood Cell (WBC) Count 10.20 10x3/uL (4.8-10.8)
[2025-07-13 06:45] LABS: Bacteria/HPF None Seen HPF (None Seen); CAUTI Indications for Culture Alt mental st,lethar; Glucose, Urine (Dipstick) Greater than 1000 mg/dL (Negative); Leukocyte Negative Leu/uL (Negative); Protein, Urine (Dipstick) Negative (Neg-Trace); RBC/HPF 0-3 HPF (0-3); Specific Gravity, Urine 1.019 (1.002-1.036); WBC/HPF 0-3 HPF (0-3)
[2025-07-13 06:49] LABS: ALT (SGPT) 9 U/L (Less than 45); AST (SGOT) 22 U/L (11-34); Albumin 3.3 g/dL (3.1-4.5); Alkaline Phosphatase 83 U/L (40-110); Anion Gap 12 mmol/L (10-20); BUN (Urea Nitrogen) 12 mg/dL (8.4-25.7); Bilirubin, Total 0.8 mg/dL (0.3-1.2); Calc. Creatinine Clearance 73 mL/min (70-130); Calcium 8.7 mg/dL (7.8-10.44); Carbon Dioxide 24 mmol/L (23-31); Chloride 104 mmol/L (98-107); Globulin 3.3 g/dL (2.4-3.5); Glucose 221 mg/dL (83-110); Potassium 4.3 mmol/L (3.5-5.1); Sodium 136 mmol/L (136-145)
[2025-07-13 06:49] LABS: Urine Culture Reflex No No
[2025-07-13] MEDS ORDERED: PROPOFOL 20 ML ONE (10:06)
[2025-07-13] MEDS ORDERED: fentaNYL PF 100 MCG/2 ML SYRINGE ONE (10:06)
[2025-07-13] MEDS ORDERED: Rocuronium Bromide 10 MG/ML (10ML VIAL) ONE (10:07)
[2025-07-13] MEDS ORDERED: Lidocaine 1% PF 5 ML VIAL ONE (10:07)
[2025-07-13] MEDS ORDERED: CEFAZOLIN 1 GM VIAL ONE (10:27)
[2025-07-13] MEDS ORDERED: PHENYLEPHRINE-NS 100 MCG/ML 10 ML SYRINGE ONE (10:40)
[2025-07-13] MEDS ORDERED: Ondansetron PF 4 MG/2 ML Vial ONE (10:55)
[2025-07-13] MEDS ORDERED: Calcium Chloride 1 GM/10 ML Abboject SYRINGE ONE (11:16)
[2025-07-13] MEDS ORDERED: SUGAMMADEX SODIUM 200 MG/2 ML VIAL ONE (11:32)
[2025-07-13] MEDS: Carvedilol 6.25 MG TAB PO SCH ×2 (13:40→20:42)
[2025-07-14 05:41] LABS: #Basophils 0.03 10x3/uL (0.0-0.2); #Eosinophils 0.05 10x3/uL (0.0-0.7); #Monocytes 1.38 10x3/uL (0.11-0.59); #Neutrophils 8.00 10x3/uL (1.40-6.50); %Basophils 0.3 % (0.0-1.0); %Eosinophils 0.5 % (0.0-10.0); %Lymphocytes 12.8 % (21.0-51.0); %Monocytes 12.7 % (0.0-10.0); %Neutrophils 73.5 % (42.0-75.0); Hematocrit 35.4 % (42.0-52.0); Hemoglobin 11.2 g/dL (14.0-18.0); Mean Corpuscular Hemoglobin 26.0 pg (27.0-31.0); Mean Corpuscular Volume 82.1 fL (78.0-98.0); Platelet Count 192 10x3/uL (130-400); Red Blood Cell (RBC) Count 4.31 mill/uL (4.70-6.10); White Blood Cell (WBC) Count 10.87 10x3/uL (4.8-10.8)
[2025-07-14 06:10] LABS: ALT (SGPT) 7 U/L (Less than 45); AST (SGOT) 17 U/L (11-34); Albumin 2.8 g/dL (3.1-4.5); Alkaline Phosphatase 67 U/L (40-110); Anion Gap 14 mmol/L (10-20); BUN (Urea Nitrogen) 22 mg/dL (8.4-25.7); Bilirubin, Total 0.7 mg/dL (0.3-1.2); Calc. Creatinine Clearance 54 mL/min (70-130); Calcium 8.7 mg/dL (7.8-10.44); Carbon Dioxide 27 mmol/L (23-31); Chloride 101 mmol/L (98-107); Globulin 3.0 g/dL (2.4-3.5); Glucose 221 mg/dL (83-110); Potassium 4.3 mmol/L (3.5-5.1); Sodium 138 mmol/L (136-145)
[2025-07-14] MEDS: Dapagliflozin Propanediol 10 MG TAB PO SCH (08:57)
[2025-07-14] MEDS: Heparin 5,000 UNITS/ML VIAL SC SCH (08:58)
[2025-07-14 23:21] VITALS: BMI 22.1
[2025-07-15] MEDS: Melatonin 3 MG TAB PO PRN (01:03)
[2025-07-15] MEDS: Acetaminophen 325 MG TAB PO PRN (05:33)
[2025-07-15 05:39] LABS: #Basophils 0.10 10x3/uL (0.0-0.2); #Eosinophils 1.04 10x3/uL (0.0-0.7); #Monocytes 1.61 10x3/uL (0.11-0.59); #Neutrophils 6.02 10x3/uL (1.40-6.50); %Basophils 0.9 % (0.0-1.0); %Eosinophils 9.6 % (0.0-10.0); %Lymphocytes 18.5 % (21.0-51.0); %Monocytes 14.9 % (0.0-10.0); %Neutrophils 55.8 % (42.0-75.0); Hematocrit 32.2 % (42.0-52.0); Hemoglobin 9.8 g/dL (14.0-18.0); Mean Corpuscular Hemoglobin 25.3 pg (27.0-31.0); Mean Corpuscular Volume 83.0 fL (78.0-98.0); Platelet Count 185 10x3/uL (130-400); Red Blood Cell (RBC) Count 3.88 mill/uL (4.70-6.10); White Blood Cell (WBC) Count 10.80 10x3/uL (4.8-10.8)
[2025-07-15 05:50] LABS: ALT (SGPT) Less than 7 U/L (Less than 45); AST (SGOT) 17 U/L (11-34); Albumin 2.6 g/dL (3.1-4.5); Alkaline Phosphatase 65 U/L (40-110); Anion Gap 12 mmol/L (10-20); BUN (Urea Nitrogen) 27 mg/dL (8.4-25.7); Bilirubin, Total 0.8 mg/dL (0.3-1.2); Calc. Creatinine Clearance 54 mL/min (70-130); Calcium 8.3 mg/dL (7.8-10.44); Carbon Dioxide 27 mmol/L (23-31); Chloride 105 mmol/L (98-107); Globulin 3.0 g/dL (2.4-3.5); Glucose 168 mg/dL (83-110); Potassium 4.1 mmol/L (3.5-5.1); Sodium 140 mmol/L (136-145)
[2025-07-15] MEDS: PNEUMOC 20-VAL CONJ-DIP CRM/PF 0.5 ML SYRINGE IM ONE (10:01)
[2025-07-15 16:22] VITALS: TEMP 99
[2025-07-15 20:37] VITALS: BP 141/70
== END 2025-07-15 21:05 | DRG 481 ==
LOC: ERS 23:20 → SURG A 07-12 01:53
PROVIDERS: ADMIT Surgery; ATTEND Surgery
PROC: 0QSC04Z Reposition Left Lower Femur with Internal Fixation Device, Open Approach (ICD-10-PCS; principal; 2025-07-13)
PROC: 3E03329 Introduction of Other Anti-infective into Peripheral Vein, Percutaneous Approach (ICD-10-PCS; 2025-07-13)
PROC: 3E033XZ Introduction of Vasopressor into Peripheral Vein, Percutaneous Approach (ICD-10-PCS; 2025-07-13)
DX: S72.142A Displaced intertrochanteric fracture of left femur, initial encounter for closed fracture (principal); I50.32 Chronic diastolic (congestive) heart failure; I69.954 Hemiplegia and hemiparesis following unspecified cerebrovascular disease affecting left non-dominant side; R45.851 Suicidal ideations; E78.5 Hyperlipidemia, unspecified; F20.9 Schizophrenia, unspecified; E11.65 Type 2 diabetes mellitus with hyperglycemia; K21.9 Gastro-esophageal reflux disease without esophagitis; I11.0 Hypertensive heart disease with heart failure; F03.90 Unspecified dementia, unspecified severity, without behavioral disturbance, psychotic disturbance, mood disturbance, and anxiety; N40.0 Benign prostatic hyperplasia without lower urinary tract symptoms; E87.6 Hypokalemia; F41.9 Anxiety disorder, unspecified; F32.A Depression, unspecified; M62.50 Muscle wasting and atrophy, not elsewhere classified, unspecified site; I48.0 Paroxysmal atrial fibrillation; Z79.84 Long term (current) use of oral hypoglycemic drugs; Z95.0 Presence of cardiac pacemaker; Z79.899 Other long term (current) drug therapy; Z98.890 Other specified postprocedural states
CPT/HCPCS: 36415; 36416; 80053; 81001; 85025; 85610; 85730; C1713; G0390; J0690; J1100; J1644; J1815; J2704; J3010; J7120